=== PATIENT | female | born 1975 | race American Indian/Alaskan Native ===

== ENCOUNTER 2016-11-14 13:57 | Inpatient (IN) | payer OTHER ==
--- NOTE | 2016-11-14 14:13 | Emergency Department Report ---
Chief Complaint: Neuro Symptoms/Deficit Stated Complaint: POSS STROKE/NUMBNESS R ARM/HISTORY Time Seen by Provider: 11/14/16 14:08 - HPI History of Present Illness: PT c/o R arm numbness and weakness since yesterday. PT States she has a hx of CVA with residual R sided weakness but pt feels the weakness is worsening. - ROS Review of Systems: + right sided weakness - miller - cp + arm pain - Exam Vital Signs: Vital Signs 11/14/16 14:04 Temperature 99.1 F Pulse Rate 90 Respiratory 20 Rate Blood Pressure 153/98 O2 Sat by Pulse 100 Oximetry Physical Exam: pt is alert, flat affect PT is guarding RUE MSE screening note: Focused history and physical exam performed. Due to findings the following was ordered: ekg, labs, ct ED Disposition for MSE Condition: Stable
--- NOTE | 2016-11-14 15:05 | Cat Scan Report ---
CT HEAD WITHOUT CONTRAST: HISTORY: Right sided weakness. Serial contiguous axial images were obtained through the cranium. Intravenous contrast material was not administered. The ventricles are normal in size and appearance. There is no mass effect or midline shift. No areas of abnormally increased or decreased attenuation are seen. No mass lesion is seen. The mastoid air cells and visualized portions of the sinuses are normal. IMPRESSION: Cranial CT scan within normal limits. No change since 11/02/14.
--- NOTE | 2016-11-14 15:37 | Emergency Department Report ---
ED Neuro Deficit HPI - General Chief Complaint: Neuro Symptoms/Deficit Stated Complaint: POSS STROKE/NUMBNESS R ARM/HISTORY Time Seen by Provider: 11/14/16 14:08 Source: patient, family, RN notes reviewed Mode of arrival: Ambulatory Limitations: Physical Limitation - History of Present Illness Initial Comments: This is a 41-year-old female. She is previously unknown to me. She is on lifelong Lovenox because of protein C and protein S deficiency. Reports a history of 2 strokes. Presents to the ER with right upper extremity weakness and numbness which has been present since yesterday. It is painless. It is constant. Denies severe headache, chest pain, abdominal pain, shortness of breath. Denies cough. She denies irritative and obstructive. Obstructive urinary symptoms. -: Gradual Location: right arm Presenting Symptoms: Present: Weak/Paralyzed One Side History of same: Yes Place: home Severity: severe Quality: weak, numb, tingling, constant Improves With: none Worsens With: none On Anticoagulants: Yes Context: gradual onset Associated Symptoms: denies other symptoms - Related Data Home Medications: Home Medications Medication Instructions Recorded Confirmed Last Taken Esomeprazole Magnesium [NexIUM] 40 mg PO DAILY 11/02/14 11/14/16 11/12/16 Hydromorphone HCl [Dilaudid] 4 mg PO Q6H PRN 11/02/14 11/14/16 11/12/16 Morphine [Morphine TAB] 30 mg PO Q4H PRN 11/02/14 11/14/16 11/12/16 diphenhydrAMINE [Benadryl CAP] 50 mg PO Q4H PRN 11/02/14 11/14/16 11/12/16 traZODone [Desyrel] 50 mg PO QHS 11/02/14 11/14/16 Unknown Docusate Sodium [Colace CAP] 100 mg PO DAILY 11/14/16 11/14/16 11/12/16 Enoxaparin [Lovenox] 1 each SQ BID 11/14/16 11/14/16 11/13/16 Morphine [Morphine TAB] 15 mg PO Q4H 11/14/16 11/14/16 11/12/16 Previous Rx's Medication Instructions Recorded Last Taken Type Simvastatin [Zocor TAB] 20 mg PO QHS #30 tablet 11/16/16 Unknown Rx Allergies/Adverse Reactions: Allergies Allergy/AdvReac Type Severity Reaction Status Date / Time acetaminophen [From Tylenol] Allergy Unknown Verified 07/07/15 16:25 blue dye Allergy Unknown Verified 07/07/15 16:25 hydrocodone bitartrate Allergy Unknown Verified 07/07/15 16:25 [From Lortab] NSAIDS (Non-Steroidal Allergy Unknown Verified 07/07/15 16:25 Anti-Inflamma oxycodone HCl [From Percocet] Allergy Unknown Verified 07/07/15 16:25 shellfish derived Allergy Unknown Verified 07/07/15 16:25 tramadol Allergy Unknown Verified 07/07/15 16:25 tramadol HCl [From Ultram] Allergy Unknown Verified 07/07/15 16:25 ED Review of Systems ROS: Stated complaint: POSS STROKE/NUMBNESS R ARM/HISTORY Other details as noted in HPI Constitutional: denies: fever Eyes: denies: vision change ENT: denies: epistaxis Respiratory: denies: cough Cardiovascular: denies: chest pain Gastrointestinal: denies: abdominal pain Genitourinary: as per HPI Musculoskeletal: as per HPI Skin: as per HPI Neurological: weakness, numbness, paresthesias Psychiatric: as per HPI ED Past Medical Hx - Past Medical History Previous Medical History?: Yes Hx CVA: Yes (2) Additional medical history: Protein c and s Def. June PE - Surgical History Past Surgical History?: Yes Additional Surgical History: tubal ligation. endometrial ablation - Social History Smoking Status: Never Smoker Substance Use Type: None - Medications Home Medications: Home Medications Medication Instructions Recorded Confirmed Last Taken Type Esomeprazole Magnesium [NexIUM] 40 mg PO DAILY 11/02/14 11/14/16 11/12/16 History Hydromorphone HCl [Dilaudid] 4 mg PO Q6H PRN 11/02/14 11/14/16 11/12/16 History Morphine [Morphine TAB] 30 mg PO Q4H PRN 11/02/14 11/14/16 11/12/16 History diphenhydrAMINE [Benadryl CAP] 50 mg PO Q4H PRN 11/02/14 11/14/16 11/12/16 History traZODone [Desyrel] 50 mg PO QHS 11/02/14 11/14/16 Unknown History Docusate Sodium [Colace CAP] 100 mg PO DAILY 11/14/16 11/14/16 11/12/16 History Enoxaparin [Lovenox] 1 each SQ BID 11/14/16 11/14/16 11/13/16 History Morphine [Morphine TAB] 15 mg PO Q4H 11/14/16 11/14/16 11/12/16 History Simvastatin [Zocor TAB] 20 mg PO QHS #30 tablet 11/16/16 Unknown Rx ED Neuro Physical Exam - General Limitations: No Limitations, Physical Limitation General appearance: alert, in no apparent distress Suspected Stroke: Yes - Head Head exam: Present: atraumatic, normocephalic - Eye Eye exam: Present: normal appearance, EOMI, other (visual acuity intact to finger counting, color perception, reading at a close distance). Absent: nystagmus - ENT ENT exam: Present: normal exam, normal orophraynx, mucous membranes moist, normal external ear exam - Neck Neck exam: Present: normal inspection, full ROM. Absent: tenderness, meningismus - Respiratory Respiratory exam: Present: normal lung sounds bilaterally. Absent: respiratory distress, wheezes, rales, rhonchi, stridor, chest wall tenderness - Cardiovascular Cardiovascular Exam: Present: regular rate, normal rhythm, normal heart sounds. Absent: bradycardia, tachycardia, irregular rhythm, systolic murmur, diastolic murmur, rubs, gallop - GI/Abdominal GI/Abdominal exam: Present: soft, normal bowel sounds. Absent: distended, tenderness, guarding, rebound, rigid, pulsatile mass - Extremities Exam Extremities exam: Present: normal inspection, normal capillary refill. Absent: full ROM, pedal edema, joint swelling - Back Exam Back exam: Present: normal inspection, full ROM. Absent: tenderness, CVA tenderness (R), paraspinal tenderness - Neurological Exam Neurological exam: Present: alert, oriented X3, motor sensory deficit (there is decreased sensation to light touch, pinprick in the right upper extremity. There is right upper extremity weakness.) - NIHSS Assessment Interval: Baseline 1a. Level of Consciousness: alert 1b. LOC Questions: answers correctly 1c. LOC Commands: performs tasks correctly 2. Best Gaze: normal 3. Visual: no visual loss 4. Facial Palsy: normal symmetrical movement 5b. Motor Arm Right: no gravity effort 5a. Motor Arm Left: no drift 6a. Motor Leg Left: no drift 6b. Motor Leg Right: no drift 7. Limb Ataxia: absent 8. Sensory: mild/moderate sensory loss 9. Best Language: no aphasia 10. Dysarthria: normal 11. Extinction/Inattention: no abnormality Total Score: 4 Stroke Severity: Minor Stroke - Psychiatric Psychiatric exam: Present: anxious - Skin Skin exam: Present: warm, dry, intact, normal color. Absent: rash ED Course Vital Signs 11/14/16 11/14/16 11/14/16 14:04 14:31 14:37 Temperature 99.1 F Pulse Rate 90 89 89 Respiratory 20 18 18 Rate Blood Pressure 153/98 Blood Pressure 118/85 [Left] O2 Sat by Pulse 100 100 100 Oximetry 11/14/16 16:11 Temperature Pulse Rate 68 Respiratory 18 Rate Blood Pressure Blood Pressure 120/76 [Left] O2 Sat by Pulse 100 Oximetry - EJ/Peripheral Line Neck L Time Out Performed: Yes Indications: nurses unable to establis Skin Cleansed in Sterile Fashion: Yes Size: 20 Dressing Placed: Tegaderm Patient Tolerated Procedure: well - Lab Data Result diagrams: 11/14/16 14:08 11/14/16 15:30 Lab Results 11/14/16 11/14/16 11/14/16 Range/Units 14:08 15:30 15:30 WBC 8.5 (4.5-11.0) K/mm3 RBC 3.95 (3.65-5.03) M/mm3 Hgb 11.1 (10.1-14.3) gm/dl Hct 33.9 (30.3-42.9) % MCV 86 (79-97) fl MCH 28 (28-32) pg MCHC 33 (30-34) % RDW 15.2 (13.2-15.2) % Plt Count 257 (140-440) K/mm3 Lymph % (Auto) 37.2 H (13.4-35.0) % Brule % (Auto) 6.1 (0.0-7.3) % Eos % (Auto) 1.1 (0.0-4.3) % Baso % (Auto) 0.6 (0.0-1.8) % Lymph # 3.2 (1.2-5.4) K/mm3 Brule # 0.5 (0.0-0.8) K/mm3 Eos # 0.1 (0.0-0.4) K/mm3 Baso # 0.1 (0.0-0.1) K/mm3 Seg Neutrophils % 55.0 (40.0-70.0) % Seg Neutrophils # 4.7 (1.8-7.7) K/mm3 PT 12.8 (12.2-14.9) Sec. INR 0.92 (0.87-1.13) APTT 28.6 (24.2-36.6) Sec. Sodium (137-145) mmol/L Potassium (3.6-5.0) mmol/L Chloride (98-107) mmol/L Carbon Dioxide (22-30) mmol/L Anion Gap mmol/L BUN (7-17) mg/dL Creatinine (0.7-1.2) mg/dL Estimated GFR ml/min BUN/Creatinine Ratio % Glucose (65-100) mg/dL POC Glucose (70-105) Calcium (8.4-10.2) mg/dL Total Bilirubin (0.1-1.2) mg/dL AST (5-40) units/L ALT (7-56) units/L Alkaline Phosphatase (35-129) units/L Total Creatine Kinase 150 H (30-135) units/L CK-MB (CK-2) 1.1 (0.0-4.0) ng/mL CK-MB (CK-2) Rel Index 0.7 (0-4) Troponin T < 0.010 (0.00-0.029) ng/mL Total Protein (6.3-8.2) g/dL Albumin (3.9-5) g/dL Albumin/Globulin Ratio % Urine Color (Yellow) Urine Turbidity (Clear) Urine pH (5.0-7.0) Ur Specific [place] (1.003-1.030) Urine Protein (Negative) mg/dL Urine Glucose (UA) (Negative) mg/dL Urine Ketones (Negative) mg/dL Urine Blood (Negative) Urine Nitrite (Negative) Urine Bilirubin (Negative) Urine Urobilinogen (<2.0) mg/dL Ur Leukocyte Esterase (Negative) Urine WBC (Auto) (0.0-6.0) /HPF Urine RBC (Auto) (0.0-6.0) /HPF U Epithel Cells (Auto) (0-13.0) /HPF Urine Mucus /HPF Urine Opiates Screen Urine Methadone Screen Ur Barbiturates Screen Ur Phencyclidine Scrn Ur Amphetamines Screen U Benzodiazepines Scrn Urine Cocaine Screen U Marijuana (THC) Screen Drugs of Abuse Note 11/14/16 11/14/16 11/14/16 Range/Units 15:30 15:50 15:50 WBC (4.5-11.0) K/mm3 RBC (3.65-5.03) M/mm3 Hgb (10.1-14.3) gm/dl Hct (30.3-42.9) % MCV (79-97) fl MCH (28-32) pg MCHC (30-34) % RDW (13.2-15.2) % Plt Count (140-440) K/mm3 Lymph % (Auto) (13.4-35.0) % Brule % (Auto) (0.0-7.3) % Eos % (Auto) (0.0-4.3) % Baso % (Auto) (0.0-1.8) % Lymph # (1.2-5.4) K/mm3 Brule # (0.0-0.8) K/mm3 Eos # (0.0-0.4) K/mm3 Baso # (0.0-0.1) K/mm3 Seg Neutrophils % (40.0-70.0) % Seg Neutrophils # (1.8-7.7) K/mm3 PT (12.2-14.9) Sec. INR (0.87-1.13) APTT (24.2-36.6) Sec. Sodium 137 (137-145) mmol/L Potassium 4.2 (3.6-5.0) mmol/L Chloride 99.3 (98-107) mmol/L Carbon Dioxide 26 (22-30) mmol/L Anion Gap 16 mmol/L BUN 15 (7-17) mg/dL Creatinine 0.9 (0.7-1.2) mg/dL Estimated GFR > 60 ml/min BUN/Creatinine Ratio 16.66 % Glucose 92 (65-100) mg/dL POC Glucose (70-105) Calcium 9.0 (8.4-10.2) mg/dL Total Bilirubin 0.20 (0.1-1.2) mg/dL AST 21 (5-40) units/L ALT 14 (7-56) units/L Alkaline Phosphatase 84 (35-129) units/L Total Creatine Kinase (30-135) units/L CK-MB (CK-2) (0.0-4.0) ng/mL CK-MB (CK-2) Rel Index (0-4) Troponin T (0.00-0.029) ng/mL Total Protein 7.4 (6.3-8.2) g/dL Albumin 3.7 L (3.9-5) g/dL Albumin/Globulin Ratio 1.0 % Urine Color Straw (Yellow) Urine Turbidity Clear (Clear) Urine pH 8.0 H (5.0-7.0) Ur Specific [place] 1.014 (1.003-1.030) Urine Protein <15 mg/dl (Negative) mg/dL Urine Glucose (UA) Neg (Negative) mg/dL Urine Ketones Neg (Negative) mg/dL Urine Blood Neg (Negative) Urine Nitrite Neg (Negative) Urine Bilirubin Neg (Negative) Urine Urobilinogen < 2.0 (<2.0) mg/dL Ur Leukocyte Esterase Sm (Negative) Urine WBC (Auto) 3.0 (0.0-6.0) /HPF Urine RBC (Auto) 1.0 (0.0-6.0) /HPF U Epithel Cells (Auto) 2.0 (0-13.0) /HPF Urine Mucus Few /HPF Urine Opiates Screen Presumptive negative Urine Methadone Screen Presumptive negative Ur Barbiturates Screen Presumptive negative Ur Phencyclidine Scrn Presumptive negative Ur Amphetamines Screen Presumptive negative U Benzodiazepines Scrn Presumptive negative Urine Cocaine Screen Presumptive negative U Marijuana (THC) Screen Presumptive negative Drugs of Abuse Note Disclamer 11/14/16 Range/Units 16:07 WBC (4.5-11.0) K/mm3 RBC (3.65-5.03) M/mm3 Hgb (10.1-14.3) gm/dl Hct (30.3-42.9) % MCV (79-97) fl MCH (28-32) pg MCHC (30-34) % RDW (13.2-15.2) % Plt Count (140-440) K/mm3 Lymph % (Auto) (13.4-35.0) % Brule % (Auto) (0.0-7.3) % Eos % (Auto) (0.0-4.3) % Baso % (Auto) (0.0-1.8) % Lymph # (1.2-5.4) K/mm3 Brule # (0.0-0.8) K/mm3 Eos # (0.0-0.4) K/mm3 Baso # (0.0-0.1) K/mm3 Seg Neutrophils % (40.0-70.0) % Seg Neutrophils # (1.8-7.7) K/mm3 PT (12.2-14.9) Sec. INR (0.87-1.13) APTT (24.2-36.6) Sec. Sodium (137-145) mmol/L Potassium (3.6-5.0) mmol/L Chloride (98-107) mmol/L Carbon Dioxide (22-30) mmol/L Anion Gap mmol/L BUN (7-17) mg/dL Creatinine (0.7-1.2) mg/dL Estimated GFR ml/min BUN/Creatinine Ratio % Glucose (65-100) mg/dL POC Glucose 102 (70-105) Calcium (8.4-10.2) mg/dL Total Bilirubin (0.1-1.2) mg/dL AST (5-40) units/L ALT (7-56) units/L Alkaline Phosphatase (35-129) units/L Total Creatine Kinase (30-135) units/L CK-MB (CK-2) (0.0-4.0) ng/mL CK-MB (CK-2) Rel Index (0-4) Troponin T (0.00-0.029) ng/mL Total Protein (6.3-8.2) g/dL Albumin (3.9-5) g/dL Albumin/Globulin Ratio % Urine Color (Yellow) Urine Turbidity (Clear) Urine pH (5.0-7.0) Ur Specific [place] (1.003-1.030) Urine Protein (Negative) mg/dL Urine Glucose (UA) (Negative) mg/dL Urine Ketones (Negative) mg/dL Urine Blood (Negative) Urine Nitrite (Negative) Urine Bilirubin (Negative) Urine Urobilinogen (<2.0) mg/dL Ur Leukocyte Esterase (Negative) Urine WBC (Auto) (0.0-6.0) /HPF Urine RBC (Auto) (0.0-6.0) /HPF U Epithel Cells (Auto) (0-13.0) /HPF Urine Mucus /HPF Urine Opiates Screen Urine Methadone Screen Ur Barbiturates Screen Ur Phencyclidine Scrn Ur Amphetamines Screen U Benzodiazepines Scrn Urine Cocaine Screen U Marijuana (THC) Screen Drugs of Abuse Note Vital Signs 11/14/16 11/14/16 11/14/16 14:04 14:31 14:37 Temperature 99.1 F Pulse Rate 90 89 89 Respiratory 20 18 18 Rate Blood Pressure 153/98 Blood Pressure 118/85 [Left] O2 Sat by Pulse 100 100 100 Oximetry 11/14/16 16:11 Temperature Pulse Rate 68 Respiratory 18 Rate Blood Pressure Blood Pressure 120/76 [Left] O2 Sat by Pulse 100 Oximetry Lab Results 11/14/16 11/14/16 Range/Units 14:08 15:30 WBC 8.5 (4.5-11.0) K/mm3 RBC 3.95 (3.65-5.03) M/mm3 Hgb 11.1 (10.1-14.3) gm/dl Hct 33.9 (30.3-42.9) % MCV 86 (79-97) fl MCH 28 (28-32) pg MCHC 33 (30-34) % RDW 15.2 (13.2-15.2) % Plt Count 257 (140-440) K/mm3 Lymph % (Auto) 37.2 H (13.4-35.0) % Brule % (Auto) 6.1 (0.0-7.3) % Eos % (Auto) 1.1 (0.0-4.3) % Baso % (Auto) 0.6 (0.0-1.8) % Lymph # 3.2 (1.2-5.4) K/mm3 Brule # 0.5 (0.0-0.8) K/mm3 Eos # 0.1 (0.0-0.4) K/mm3 Baso # 0.1 (0.0-0.1) K/mm3 Seg Neutrophils % 55.0 (40.0-70.0) % Seg Neutrophils # 4.7 (1.8-7.7) K/mm3 PT 12.8 (12.2-14.9) Sec. INR 0.92 (0.87-1.13) APTT 28.6 (24.2-36.6) Sec. - EKG Data -: EKG Interpreted by Me EKG shows normal: sinus rhythm 11/14/16 16:17 Normal sinus, 76 beats minute, normal intervals, normal axis, motion artifact, not morphologically consistent with stemi 11/14/16 16:18 - Radiology Data Radiology results: report reviewed, image reviewed Noncontrast CT scan of the brain is negative. X-ray the chest is negative - Medical Decision Making Differential diagnosis: Stroke, Ferny's paralysis, conversion disorder, urinary tract infection, pneumonia Assessment and plan: 41-year-old female with multiple strokes, unlikely systemic anticoagulation, with right upper extremity weakness and numbness which started yesterday. She is not a TPA candidate as she presented more than 4.5 hours after presentation/onset of symptoms. She presented more than 12 hours after onset of symptoms, her last well time was yesterday. Therefore, she is very unlikely to benefit from endovascular intervention or emergent acquisition of a CT angiogram. She reports anaphylaxis to NSAIDs. She will therefore be treated with Plavix and Lovenox, she reports she is taking Lovenox on a daily basis, she took her last dose yesterday. In addition, as symptoms have been present since yesterday, I see no reason to emergently consult neurology from the emergency department. I will defer to the inpatient team to consult them for further evaluation and medical recommendations. case presented to Dr Law, who accepts the patient to his service - Core Measures Measure Exclusions: not indicated - Thrombolytic Inclusion/Exclusion Thrombolytic Exclusion Criteria: Symptom Onset > 3 Hours Critical care attestation.: If time is entered above; I have spent that time in minutes in the direct care of this critically ill patient, excluding procedure time. ED Disposition Clinical Impression: Right arm weakness CVA (cerebral vascular accident) Qualifiers: CVA mechanism: unspecified Qualified Code(s): I63.9 - Cerebral infarction, unspecified Disposition: OP ADMIT IP TO THIS HOSP Is pt being admited?: Yes Condition: Stable
--- NOTE | 2016-11-14 15:41 | Admit Criteria Form ---
Admission Criteria Documentation: TELEMETRY CARE Telemetry Admission Guidelines (Place 'X' for any and all applicable criteria): Admission to telemetry [A] may be indicated for ANY ONE of the following(1)(2)(3 )(4)(5): [ ]I. Cardiac disease, including ANY ONE of the following (9)(10)(11)(12)(13 ): [ ]a) Postacute [place] [ ]b) Low-risk patients with ST-segment elevation [place] who have undergone successful percutaneous coronary intervention [ ]c) Unstable angina [ ]d) Suspected [place] (until it is ruled out) [ ]e) Post cardiac surgery (first 48 to 72 hours unless complications occur) [ ]f) Acute arrhythmias (including significant tachycardia or bradycardia) [B] [ ]g) Firing of an implantable cardioverter defibrillator [C] [ ]h) Suspected pacemaker or implantable cardioverter defibrillator malfunction (10) [ ]i) New administration or adjustment of an antiarrhythmic drug [D ] [ ]j) Child admitted for acute congestive heart failure [ ]j) Long QT syndrome [ ]k) Advanced heart block (eg, second-degree Mobitz type II, third- degree heart block) [ ]l) Acute myocarditis or pericarditis [ ]m) Short-term (ambulatory or inpatient) monitoring after a cardiac procedure as indicated by ANY ONE of the following [E]: [ ]i) Electrophysiologic studies [ ]ii) Percutaneous coronary intervention with stent placement [ ]iii) Pacemaker placement with cardiac conduction defect [ ]iv) Implantable cardiac defibrillator placement [ ]II. Drug overdose or poisoning with substance that causes arrhythmias or QT prolongation (eg, phenothiazines, sympathomimetic agents, cyclic antidepressants, digitalis, antiarrhythmic drugs)(15) [ ]III. Short-term (ambulatory or inpatient) monitoring after therapeutic or diagnostic procedure requiring conscious sedation or anesthesia (eg, endoscopy, elective cardioversion) [ X]IV. Acute cerebrovascular even[F](18) [ ]V. Massive blood transfusion (eg, at least 10 units of packed red blood cells in 24 hours) [ ]. Variceal bleeding after endoscopy, sclerotherapy, or IV vasopressin [ ]VII. Uncorrected electrolyte abnormalities associated with an increased risk of dangerous arrhythmia [G]; examples include [ ]a) Hyperkalemia with attributable ECG changes [ ]b) Potassium greater than 6.5 mmol/L (mEq/L) in a patient without history of chronic renal disease [ ]c) Prolonged QT attributed to hypokalemia, hypomagnesemia, or hypocalcemia [ ]VIII.Unexplained syncope or other neurologic event suspected of being due to arrhythmia due to a finding that increases risk; examples include(19)(20)(21): [ ]a) High-risk ECG findings (eg, bifascicular block, bradycardia, abnormal QT interval, ventricular pre- excitation) [ ]b) History of previous syncope due to arrhythmia [ ]c) Abnormal ventricular function (eg, reduced ejection fraction ) [ ]d) Exertional or supine syncope [ ]e) Concerning syncope characteristics (eg, sudden loss of consciousness without prodrome) [ ]f) Family history of sudden [ ]g) Use of arrhythmogenic medication [ ]h) Suspected cardiac ischemia [ ]i) Known channelopathy (eg, long QT syndrome, Brugada syndrome, or catecholaminergic paroxysmal ventricular tachycardia) [ ]j) Known structural heart disease (eg, hypertrophic cardiomyopathy , severe valvular disease) [ ]k) Palpitations preceding syncope The original [employer] content created by [employer] has been revised. The portions of the content which have been revised are identified through the use of italic text or in bold, and [employer] has neither reviewed nor approved the modified material. All other unmodified content is copyright [employer]. Please see references footnoted in the original [employer] edition 2016 Admission Criteria Met: Yes
[2016-11-14 16:08] LABS: Basophils % (Auto) 0.6 % (0.0-1.8); Eosinophils % (Auto) 1.1 % (0.0-4.3); Hematocrit 33.9 % (30.3-42.9); Hemoglobin 11.1 gm/dl (10.1-14.3); Mean Corpuscular HGB Conc 33 % (30-34); Mean Corpuscular Hemoglobin 28 pg (28-32); Mean Corpuscular Volume 86 fl (79-97); Platelet Count 257 K/mm3 (140-440); Red Blood Count 3.95 M/mm3 (3.65-5.03); Red Cell Distribution Width 15.2 % (13.2-15.2); White Blood Count 8.5 K/mm3 (4.5-11.0)
[2016-11-14 16:12] LABS: INR 0.92 (0.87-1.13); Partial Thromboplastin Time 28.6 Sec. (24.2-36.6)
[2016-11-14] MEDS ORDERED: LOVENOX SUB-Q ONE (16:14)
[2016-11-14] MEDS ORDERED: PLAVIX PO ONE (16:14)
[2016-11-14 16:21] LABS: Alanine Aminotransferase 14 units/L (7-56); Albumin 3.7 g/dL (3.9-5); Alkaline Phosphatase 84 units/L (35-129); Anion Gap 16 mmol/L; BUN/Creatinine Ratio 16.66; Blood Urea Nitrogen 15 mg/dL (7-17); Carbon Dioxide 26 mmol/L (22-30); Chloride 99.3 mmol/L (98-107); Glucose 92 mg/dL (65-100); Potassium 4.2 mmol/L (3.6-5.0); Sodium 137 mmol/L (137-145); Total Protein 7.4 g/dL (6.3-8.2)
[2016-11-14 16:23] LABS: Creatine Kinase MB 1.1 ng/mL (0.0-4.0)
[2016-11-14 16:24] LABS: Creatine Kinase 150 units/L (30-135)
[2016-11-14 16:26] LABS: Bilirubin,Urine NEG (Negative); Blood,Urine NEG (Negative); Ketones,Urine NEG (Negative); Leukocyte Esterase,Urine SM (Negative); Mucus,Urine FEW /HPF; Nitrite,Urine NEG (Negative); Protein,Urine <15 mg/dL mg/dL (Negative); Urobilinogen,Urine < 2.0 mg/dL (<2.0)
[2016-11-14] MEDS ORDERED: REGLAN PO PRN (16:38)
[2016-11-14] MEDS ORDERED: MILK OF MAGNESIA PO PRN (16:38)
[2016-11-14] MEDS ORDERED: MORPHINE IV ONE (16:38)
[2016-11-14] MEDS ORDERED: TYLENOL PO PRN (16:38)
[2016-11-14] MEDS ORDERED: ZOFRAN IV PRN (16:38)
[2016-11-14] MEDS ORDERED: PHENERGAN PR PRN (16:38)
[2016-11-14] MEDS ORDERED: APRESOLINE IV PRN (16:38)
[2016-11-14] MEDS ORDERED: DULCOLAX PR PRN (16:38)
[2016-11-14] MEDS ORDERED: SODIUM CHLORIDE FLUSH SYRINGE 10 ML IV PRN (16:38)
[2016-11-14] MEDS ORDERED: BENADRYL IV ONE (16:39)
--- NOTE | 2016-11-14 16:56 | History and Physical Report ---
History of Present Illness Date of examination: 11/14/16 Chief complaint: Right upper extremity numbness and weakness History of present illness: 41-year-old -[place] female with past medical history significant for multiple stroke, DVT, PE, protein C/S deficiency presented to the emergency department complaining of left-sided upper extremity weakness and numbness that started yesterday around 9 AM. Numbness and weakness is getting progressively worse then she presented to the emergency department this morning. Patient has multiple history of stroke and she is on therapeutic dose of Lovenox and has been followed by [facility]. Patient also complained pain and swelling of the right upper extremity. Patient denied headache, fever, chills. Patient denied chest pain, or bleeding. REVIEW OF SYSTEMS: GENERAL: no weight change, no fatigue, no fever HEAD: no head ache EYES: no blurry vision, no acute visual loss EARS: no hearing loss, no discharge, no earache NOSE: no stuffiness, no sneezing, no discharge MOUTH, THROAT AND NECK: no bleeding gums, no sore throat, no swollen neck CARDIAC: no palpitations, no dyspnea on exertion, no orthopnea, no PND, no edema , no chest pain RESPIRATORY: no shortness of breath, no wheeze, no cough, no sputum, no hemoptysis, no asthma GI: no decreased appetite, no nausea, no vomiting, no dysphagia, no diarrhea, no constipation, no abdominal pain URINARY: no change in frequency, no urgency, no polyuria, no hematuria, no incontinence MUSCULOSKELETAL: Right upper extremity weakness, numbness, and pain NEUROLOGIC: no tremors HEMATOLOGIC: no anemia, no easy bruising SKIN: no rashes ENDOCRINE: no heat/cold intolerance, no polyuria, no polydipsia, no thyroid problems, no diabetes PSYCHIATRIC: no anxiety, no depression, no suicidal ideations Past History Past Medical History: DVT, pulmonary embolism, stroke, other (protein C/S deficiency) Past Surgical History: hysterectomy, hernia repair, Other (Serafin filter) Social history: full code. denies: smoking, alcohol abuse, prescription drug abuse, IV drug use Family history: other (Multiple family member has SLE) Medications and Allergies Allergies Allergy/AdvReac Type Severity Reaction Status Date / Time acetaminophen [From Tylenol] Allergy Unknown Verified 07/07/15 16:25 blue dye Allergy Unknown Verified 07/07/15 16:25 hydrocodone bitartrate Allergy Unknown Verified 07/07/15 16:25 [From Lortab] NSAIDS (Non-Steroidal Allergy Unknown Verified 07/07/15 16:25 Anti-Inflamma oxycodone HCl [From Percocet] Allergy Unknown Verified 07/07/15 16:25 shellfish derived Allergy Unknown Verified 07/07/15 16:25 tramadol Allergy Unknown Verified 07/07/15 16:25 tramadol HCl [From Ultram] Allergy Unknown Verified 07/07/15 16:25 Home Medications Medication Instructions Recorded Confirmed Last Taken Type Esomeprazole Magnesium [NexIUM] 40 mg PO DAILY 11/02/14 11/14/16 11/12/16 History Hydromorphone HCl [Dilaudid] 4 mg PO Q6H PRN 11/02/14 11/14/16 11/12/16 History Morphine [Morphine TAB] 30 mg PO Q4H PRN 11/02/14 11/14/16 11/12/16 History diphenhydrAMINE [Benadryl] 50 mg PO Q4H PRN 11/02/14 11/14/16 11/12/16 History traZODone [Desyrel] 50 mg PO QHS 11/02/14 11/14/16 Unknown History Docusate Sodium [Colace] 100 mg PO DAILY 11/14/16 11/14/16 11/12/16 History Enoxaparin [Lovenox] 1 each SQ BID 11/14/16 11/14/16 11/13/16 History Morphine [Morphine TAB] 15 mg PO Q4H 11/14/16 11/14/16 11/12/16 History Active Meds: Active Medications Acetaminophen (Tylenol) 650 mg PO Q4H PRN PRN Reason: Pain, Mild (1-3) Aspirin (Aspirin) 325 mg PO QDAY ASHISH Bisacodyl (Dulcolax) 10 mg ID QDAY PRN PRN Reason: Constipation Diphenhydramine HCl (Benadryl) 25 mg IV Q4H PRN PRN Reason: Itching Docusate Sodium (Colace) 100 mg PO BID ASHISH Enoxaparin Sodium (Lovenox) 100 mg 1 mg/kg (100 mg) SUB-Q Q12HR ASHISH Hydralazine HCl (Apresoline) 5 mg IV Q6H PRN PRN Reason: Keep SBP between 160-185 mm Hg Magnesium Hydroxide (Milk Of Magnesia) 30 ml PO Q4H PRN PRN Reason: Constipation Metoclopramide HCl (Reglan) 10 mg PO Q6H PRN PRN Reason: Nausea And Vomiting Morphine Sulfate (Morphine) 2 mg IV Q4H PRN PRN Reason: Pain, Moderate (4-6) Ondansetron HCl (Zofran) 4 mg IV Q8H PRN PRN Reason: N/V unrelieved by Reglan Promethazine HCl (Phenergan) 25 mg ID Q6H PRN PRN Reason: Nausea And Vomiting Simvastatin (Zocor) 20 mg PO QHS ASHISH Sodium Chloride (Sodium Chloride Flush Syringe 10 Ml) 10 ml INJ PRN PRN PRN Reason: LINE FLUSH Exam - Physical Exam Narrative exam: Not in cardiopulmonary distress. The patient appeared well nourished and normally developed. Vital signs as documented. Head exam is unremarkable. No scleral icterus . Neck is without jugular venous distension, thyromegaly, or carotid bruits. Lungs are clear to auscultation. Cardiac exam reveals regular rate and Rhythm. First and second heart sounds normal. No murmurs, rubs or gallops. Abdominal exam reveals normal bowel sounds, no masses, no organomegaly and no aortic enlargement. Extremities tenderness of the right upper extremity. HOISTMAN: Right upper extremity weakness, power is 3 out of 5. - Constitutional Vitals: Temp Pulse Resp BP Pulse Ox 99.1 F 68 18 120/76 100 11/14/16 14:04 11/14/16 16:11 11/14/16 16:11 11/14/16 16:11 11/14/16 16:11 Results - Labs CBC & Chem 7: 11/14/16 14:08 11/14/16 15:30 Labs: Laboratory Last Values WBC 8.5 K/mm3 (4.5-11.0) 11/14/16 14:08 RBC 3.95 M/mm3 (3.65-5.03) 11/14/16 14:08 Hgb 11.1 gm/dl (10.1-14.3) 11/14/16 14:08 Hct 33.9 % (30.3-42.9) 11/14/16 14:08 MCV 86 fl (79-97) 11/14/16 14:08 MCH 28 pg (28-32) 11/14/16 14:08 MCHC 33 % (30-34) 11/14/16 14:08 RDW 15.2 % (13.2-15.2) 11/14/16 14:08 Plt Count 257 K/mm3 (140-440) 11/14/16 14:08 Lymph % (Auto) 37.2 % (13.4-35.0) H 11/14/16 14:08 [place] % (Auto) 6.1 % (0.0-7.3) 11/14/16 14:08 Eos % (Auto) 1.1 % (0.0-4.3) 11/14/16 14:08 Baso % (Auto) 0.6 % (0.0-1.8) 11/14/16 14:08 Lymph # 3.2 K/mm3 (1.2-5.4) 11/14/16 14:08 [place] # 0.5 K/mm3 (0.0-0.8) 11/14/16 14:08 Eos # 0.1 K/mm3 (0.0-0.4) 11/14/16 14:08 Baso # 0.1 K/mm3 (0.0-0.1) 11/14/16 14:08 Seg Neutrophils % 55.0 % (40.0-70.0) 11/14/16 14:08 Seg Neutrophils # 4.7 K/mm3 (1.8-7.7) 11/14/16 14:08 PT 12.8 Sec. (12.2-14.9) 11/14/16 15:30 INR 0.92 (0.87-1.13) 11/14/16 15:30 APTT 28.6 Sec. (24.2-36.6) 11/14/16 15:30 Sodium 137 mmol/L (137-145) 11/14/16 15:30 Potassium 4.2 mmol/L (3.6-5.0) 11/14/16 15:30 Chloride 99.3 mmol/L (98-107) 11/14/16 15:30 Carbon Dioxide 26 mmol/L (22-30) 11/14/16 15:30 Anion Gap 16 mmol/L 11/14/16 15:30 BUN 15 mg/dL (7-17) 11/14/16 15:30 Creatinine 0.9 mg/dL (0.7-1.2) 11/14/16 15:30 Estimated GFR > 60 ml/min 11/14/16 15:30 BUN/Creatinine Ratio 16.66 % 11/14/16 15:30 Glucose 92 mg/dL (65-100) 11/14/16 15:30 Calcium 9.0 mg/dL (8.4-10.2) 11/14/16 15:30 Total Bilirubin 0.20 mg/dL (0.1-1.2) 11/14/16 15:30 AST 21 units/L (5-40) 11/14/16 15:30 ALT 14 units/L (7-56) 11/14/16 15:30 Alkaline Phosphatase 84 units/L (35-129) 11/14/16 15:30 Total Creatine Kinase 150 units/L (30-135) H 11/14/16 15:30 CK-MB (CK-2) 1.1 ng/mL (0.0-4.0) 11/14/16 15:30 CK-MB (CK-2) Rel Index 0.7 (0-4) 11/14/16 15:30 Troponin T < 0.010 ng/mL (0.00-0.029) 11/14/16 15:30 Total Protein 7.4 g/dL (6.3-8.2) 11/14/16 15:30 Albumin 3.7 g/dL (3.9-5) L 11/14/16 15:30 Albumin/Globulin Ratio 1.0 % 11/14/16 15:30 Urine Color Straw (Yellow) 11/14/16 15:50 Urine Turbidity Clear (Clear) 11/14/16 15:50 Urine pH 8.0 (5.0-7.0) H 11/14/16 15:50 Ur Specific [place] 1.014 (1.003-1.030) 11/14/16 15:50 Urine Protein <15 mg/dl mg/dL (Negative) 11/14/16 15:50 Urine Glucose (UA) Neg mg/dL (Negative) 11/14/16 15:50 Urine Ketones Neg mg/dL (Negative) 11/14/16 15:50 Urine Blood Neg (Negative) 11/14/16 15:50 Urine Nitrite Neg (Negative) 11/14/16 15:50 Urine Bilirubin Neg (Negative) 11/14/16 15:50 Urine Urobilinogen < 2.0 mg/dL (<2.0) 11/14/16 15:50 Ur Leukocyte Esterase Sm (Negative) 11/14/16 15:50 Urine WBC (Auto) 3.0 /HPF (0.0-6.0) 11/14/16 15:50 Urine RBC (Auto) 1.0 /HPF (0.0-6.0) 11/14/16 15:50 U Epithel Cells (Auto) 2.0 /HPF (0-13.0) 11/14/16 15:50 Urine Mucus Few /HPF 11/14/16 15:50 - Imaging and Cardiology CT Scan - head: image reviewed (no acute intracranial abnormality) Assessment and Plan Assessment and plan: Acute CVA -Patient came to the hospital after a window period for TPA passed -Patient has a recurrent stroke/DVT and PE -Patient is on therapeutic Lovenox -MRI/MRA, carotid Doppler and echo ordered -Neurology consult placed -Patient is on aspirin and statin -Patient control Protein C/S deficiency with recurrent clot -Continue the Lovenox -Hematology/oncology consult placed DVT prophylaxis -Patient is on therapeutic Lovenox Disposition -To telemetry floor. Advance Directives: Yes VTE prophylaxis?: Chemical Plan of care discussed with patient/family: Yes
[2016-11-14] MEDS ORDERED: HYDROMORPHONE HCL 4 MG PO PRN (17:53)
[2016-11-14] MEDS ORDERED: DILAUDID PO PRN (18:16)
--- NOTE | 2016-11-14 21:10 | Consultation ---
History of Present Illness - Reason for Consult Consult date: 11/14/16 hypercoagulable. Requesting physician: YADIRA LOPEZ - History of Present Illness Thank you for this consult, patient seen, record reviewed. Kindly asked to see this patient, with hx of hypercoagulable, and presented with stroke sxs. Had been on LMWH, and seen at [facility].She will need records of tx from [facility]. will need anticoagulation, if no bleeding. Past History Past Medical History: DVT, pulmonary embolism, stroke, other (protein C/S deficiency) Past Surgical History: hysterectomy, hernia repair, Other ([place] filter) Social history: full code. denies: smoking, alcohol abuse, prescription drug abuse, IV drug use Family history: other (Multiple family member has SLE) Medications and Allergies Allergies Allergy/AdvReac Type Severity Reaction Status Date / Time acetaminophen [From Tylenol] Allergy Unknown Verified 07/07/15 16:25 blue dye Allergy Unknown Verified 07/07/15 16:25 hydrocodone bitartrate Allergy Unknown Verified 07/07/15 16:25 [From Lortab] NSAIDS (Non-Steroidal Allergy Unknown Verified 07/07/15 16:25 Anti-Inflamma oxycodone HCl [From Percocet] Allergy Unknown Verified 07/07/15 16:25 shellfish derived Allergy Unknown Verified 07/07/15 16:25 tramadol Allergy Unknown Verified 07/07/15 16:25 tramadol HCl [From Ultram] Allergy Unknown Verified 07/07/15 16:25 Home Medications Medication Instructions Recorded Confirmed Last Taken Type Esomeprazole Magnesium [NexIUM] 40 mg PO DAILY 11/02/14 11/14/16 11/12/16 History Hydromorphone HCl [Dilaudid] 4 mg PO Q6H PRN 11/02/14 11/14/16 11/12/16 History Morphine [Morphine TAB] 30 mg PO Q4H PRN 11/02/14 11/14/16 11/12/16 History diphenhydrAMINE [Benadryl] 50 mg PO Q4H PRN 11/02/14 11/14/16 11/12/16 History traZODone [Desyrel] 50 mg PO QHS 11/02/14 11/14/16 Unknown History Docusate Sodium [Colace] 100 mg PO DAILY 11/14/16 11/14/16 11/12/16 History Enoxaparin [Lovenox] 1 each SQ BID 11/14/16 11/14/16 11/13/16 History Morphine [Morphine TAB] 15 mg PO Q4H 11/14/16 11/14/16 11/12/16 History Active Meds: Active Medications Bisacodyl (Dulcolax) 10 mg [place] QDAY PRN PRN Reason: Constipation Diphenhydramine HCl (Benadryl) 25 mg IV Q4H PRN PRN Reason: Itching Docusate Sodium (Colace) 100 mg PO BID ASHISH Enoxaparin Sodium (Lovenox) 100 mg 1 mg/kg (100 mg) SUB-Q Q12HR ASHISH Hydralazine HCl (Apresoline) 5 mg IV Q6H PRN PRN Reason: Keep SBP between 160-185 mm Hg Hydromorphone HCl (Dilaudid) 4 mg PO Q6H PRN PRN Reason: Pain , Severe (7-10) Magnesium Hydroxide (Milk Of Magnesia) 30 ml PO Q4H PRN PRN Reason: Constipation Metoclopramide HCl (Reglan) 10 mg PO Q6H PRN PRN Reason: Nausea And Vomiting Morphine Sulfate (Morphine) 2 mg IV Q4H PRN PRN Reason: Pain, Moderate (4-6) Ondansetron HCl (Zofran) 4 mg IV Q8H PRN PRN Reason: N/V unrelieved by Reglan Pantoprazole Sodium (Protonix) 40 mg PO DAILY ASHISH Promethazine HCl (Phenergan) 25 mg [place] Q6H PRN PRN Reason: Nausea And Vomiting Simvastatin (Zocor) 20 mg PO QHS [facility] Sodium Chloride (Sodium Chloride Flush Syringe 10 Ml) 10 ml IV PRN PRN PRN Reason: LINE FLUSH Trazodone HCl (Desyrel) 50 mg PO QHS [facility] Review of Systems Constitutional: fatigue Breasts: deferred Exam - Constitutional Vitals: Temp Pulse Resp BP Pulse Ox 98.7 F 87 18 131/80 100 11/14/16 19:43 11/14/16 19:43 11/14/16 19:43 11/14/16 19:43 11/14/16 19:43 General appearance: Present: mild distress, well-nourished - EENT Eyes: Present: PERRL ENT: hearing intact, clear oral mucosa - Neck Neck: Present: supple, normal ROM - Respiratory Respiratory effort: normal Respiratory: bilateral: CTA - Cardiovascular Heart Sounds: Present: S1 & S2. Absent: rub, click - Extremities Extremities: pulses symmetrical, No edema Peripheral Pulses: within normal limits - Abdominal General gastrointestinal: Present: soft, non-tender, non-distended, normal bowel sounds Female genitourinary: Present: deferred - Rectal Rectal Exam: deferred - Integumentary Integumentary: Present: clear, warm, dry - Neurologic Neurologic: moves all extremities Results - Labs CBC & Chem 7: 11/14/16 14:08 11/14/16 15:30 Assessment and Plan - Patient Problems (1) CVA (cerebral vascular accident) Current Visit: Yes Status: Acute Qualifiers: CVA mechanism: unspecified Precerebral and cerebral artery: P Laterality of affected vessel: L Qualified Code(s): I63.9 - Cerebral infarction, unspecified Plan to address problem: Neurology eval. (2) Hypercoagulable state Current Visit: Yes Status: Acute Plan to address problem: Will do w/up. Will also need record from [facility]., Anti coagulation, if no bleeding.
[2016-11-14] MEDS: COLACE PO SCH (22:06)
[2016-11-14] MEDS: ZOCOR PO SCH (22:06)
[2016-11-14] MEDS: DESYREL PO SCH (22:06)
[2016-11-14] MEDS: MORPHINE IV PRN (22:06)
[2016-11-14] MEDS: BENADRYL IV PRN (22:06)
[2016-11-14] MEDS: LOVENOX SUB-Q SCH (22:07)
[2016-11-14 22:28] LABS: Urine Drugs of Abuse Note Disclamer
[2016-11-15] MEDS: BENADRYL IV PRN ×3 (04:17→22:23)
[2016-11-15] MEDS: MORPHINE IV PRN ×4 (04:17→22:23)
--- NOTE | 2016-11-15 07:33 | XRay Report ---
AP CHEST: HISTORY: CVA AP view of the chest demonstrates a normal mediastinal and cardiac contour with clear lungs and normal bony and soft tissue structures. Right axillary surgical clips are unchanged since 07/07/15. IMPRESSION: Unremarkable AP chest.
--- NOTE | 2016-11-15 08:03 | Vascular Lab Report ---
RIGHT UPPER EXTREMITY VENOUS DUPLEX: REASON FOR EXAM: Pain and swelling of the right upper extremity COMMENTS ON THE RIGHT: All deep arm veins visualized are freely compressible without evidence of internal echogenicity. The subclavian and internal jugular veins are free of thrombus. Flow is spontaneous and phasic throughout. Short segment superficial thrombophlebitis noted in the cephalic vein just proximal to antecubital fossa COMMENTS ON THE LEFT: The subclavian and internal jugular veins are free of thrombus. IMPRESSION: No evidence of acute or chronic deep venous thrombosis in the right upper extremity. Superficial thrombophlebitis in the right upper extremity
[2016-11-15] MEDS ORDERED: ASPIRIN PO SCH (10:00)
[2016-11-15] MEDS ORDERED: NON-FORMULARY (Esomeprazole Magnesium [Nexium] 40 MG) PO SCH (10:00)
--- NOTE | 2016-11-15 11:18 | Magnetic Resonance Report ---
MRA HEAD WITHOUT CONTRAST HISTORY: Stroke. [id number] imaging with MIP reformations of the [place] of [place] is submitted. The arteries appear widely patent and free of hemodynamically significant stenosis or aneurysm dilatation. Both vertebral arteries are identified appearing patent as well. IMPRESSION: Unremarkable MRA head.
--- NOTE | 2016-11-15 11:18 | Magnetic Resonance Report ---
MRI OF THE BRAIN WITHOUT CONTRAST: HISTORY: Stroke PROCEDURE: Multiplanar, multisequence MR imaging of the brain without IV contrast was performed. FINDINGS: Compared to the CT dated 11/15/15. The brain parenchyma signal intensity and its cm white interface are within normal limits on all sequences. No evidence for acute ischemia, hemorrhage or mass. No chronic infarct or extra-axial fluid collection. The midline structures are central. The basal cisterns are patent. Normal ventricular size. The orbital cavities and sella turcica demonstrate no abnormality. The visualized paranasal sinuses and mastoid air cells are well aerated. IMPRESSION: Unremarkable non-enhanced MRI of the brain.
[2016-11-15] MEDS: COLACE PO SCH ×2 (12:15→21:37)
[2016-11-15] MEDS: LOVENOX SUB-Q SCH ×2 (12:15→21:37)
[2016-11-15] MEDS: PROTONIX PO SCH (12:15)
--- NOTE | 2016-11-15 13:07 | Consultation ---
History of Present Illness Consult date: 11/15/16 Requesting physician: YADIRA LOPEZ Reason for Consult: stroke Chief complaint: R arm weakness/numbness/pain/tingling History of present illness: 41 YO F Hx prior multiple strokes reportedly d/t protein C/S deficiency on Lovenox therapeutic and complaint residual R arm numbness p/w acute R arm numbness/tignling/pain/weakness on 11/12 PM. Numbness and weakness is getting progressively worse. Sx are constant. There are no clear aggravating, relieving or temporal factors. Severity was enough to cause inability to effectively use the R arm. She denies R face/R LE sx or slurred speech. Past History Past Medical History: DVT, pulmonary embolism, stroke, other (protein C/S deficiency) Past Surgical History: hysterectomy, hernia repair, Other (Serafin filter) Social history: full code. denies: smoking, alcohol abuse, prescription drug abuse, IV drug use Family history: other (Multiple family member has SLE) Medications and Allergies Allergies Allergy/AdvReac Type Severity Reaction Status Date / Time acetaminophen [From Tylenol] Allergy Unknown Verified 07/07/15 16:25 blue dye Allergy Unknown Verified 07/07/15 16:25 hydrocodone bitartrate Allergy Unknown Verified 07/07/15 16:25 [From Lortab] NSAIDS (Non-Steroidal Allergy Unknown Verified 07/07/15 16:25 Anti-Inflamma oxycodone HCl [From Percocet] Allergy Unknown Verified 07/07/15 16:25 shellfish derived Allergy Unknown Verified 07/07/15 16:25 tramadol Allergy Unknown Verified 07/07/15 16:25 tramadol HCl [From Ultram] Allergy Unknown Verified 07/07/15 16:25 Home Medications Medication Instructions Recorded Confirmed Last Taken Type Esomeprazole Magnesium [NexIUM] 40 mg PO DAILY 11/02/14 11/14/16 11/12/16 History Hydromorphone HCl [Dilaudid] 4 mg PO Q6H PRN 11/02/14 11/14/16 11/12/16 History Morphine [Morphine TAB] 30 mg PO Q4H PRN 11/02/14 11/14/16 11/12/16 History diphenhydrAMINE [Benadryl] 50 mg PO Q4H PRN 11/02/14 11/14/1611/12/17 History traZODone [Desyrel] 50 mg PO QHS 11/02/14 11/14/16 Unknown History Docusate Sodium [Colace] 100 mg PO DAILY 11/14/16 11/14/16 11/12/16 History Enoxaparin [Lovenox] 1 each SQ BID 11/14/16 11/14/16 11/13/16 History Morphine [Morphine TAB] 15 mg PO Q4H 11/14/16 11/14/16 11/12/16 History Active Meds: Active Medications Bisacodyl (Dulcolax) 10 mg [place] QDAY PRN PRN Reason: Constipation Diphenhydramine HCl (Benadryl) 25 mg IV Q4H PRN PRN Reason: Itching Last Admin: 11/15/16 04:17 Dose: 25 mg Docusate Sodium (Colace) 100 mg PO BID [facility] Last Admin: 11/15/16 12:15 Dose: 100 mg Enoxaparin Sodium (Lovenox) 100 mg 1 mg/kg (100 mg) SUB-Q Q12HR [facility] Last Admin: 11/15/16 12:15 Dose: 100 mg Hydralazine HCl (Apresoline) 5 mg IV Q6H PRN PRN Reason: Keep SBP between 160-185 mm Hg Hydromorphone HCl (Dilaudid) 4 mg PO Q6H PRN PRN Reason: Pain , Severe (7-10) Magnesium Hydroxide (Milk Of Magnesia) 30 ml PO Q4H PRN PRN Reason: Constipation Metoclopramide HCl (Reglan) 10 mg PO Q6H PRN PRN Reason: Nausea And Vomiting Morphine Sulfate (Morphine) 2 mg IV Q4H PRN PRN Reason: Pain, Moderate (4-6) Last Admin: 11/15/16 08:39 Dose: 2 mg Ondansetron HCl (Zofran) 4 mg IV Q8H PRN PRN Reason: N/V unrelieved by Reglan Pantoprazole Sodium (Protonix) 40 mg PO DAILY [facility] Last Admin: 11/15/16 12:15 Dose: 40 mg Promethazine HCl (Phenergan) 25 mg [place] Q6H PRN PRN Reason: Nausea And Vomiting Simvastatin (Zocor) 20 mg PO QHS [facility] Last Admin: 11/14/16 22:06 Dose: 20 mg Sodium Chloride (Sodium Chloride Flush Syringe 10 Ml) 10 ml IV PRN PRN PRN Reason: LINE FLUSH Trazodone HCl (Desyrel) 50 mg PO QHS [facility] Last Admin: 11/14/16 22:06 Dose: 50 mg Review of Systems All systems: negative Musculoskeletal: neck pain, shooting arm pain Neurological: weakness, parathesias, numbness, tingling, motor disturbance, sensory deficit, no seizures, no headaches, no convulsions, no aphasia, no change in speech, no change in mentation, no gait dysfunction, no double vision , no loss of vision Physical Examination - Vital Signs Vital Signs: Vital Signs Temp Pulse Resp BP Pulse Ox 99.1 F 90 20 153/98 100 11/14/16 14:04 11/14/16 14:04 11/14/16 14:04 11/14/16 14:04 11/14/16 14:04 - Constitutional General appearance: comfortable - EENT EENT: Present: ATNC, PERRL, mucous membranes moist, hearing intact, vision intact - Respiratory Respiratory: Present: chest non-tender, normal breath sounds, no respiratory distress - Cardiovascular Cardiovascular: Present: regular rate Extremities: Present: no peripheral edema bilatateraly, no clubbing, cyanosis, no inflammation, no ischemia or petechiae - Gastrointestinal Gastrointestinal: Present: normoactive bowel sounds, soft, non-distended - Integumentary Integumentary: Present: normal - Neurologic Cranial nerve examination: PERRL, EOMI, VFF, ptosis (mild on L), V1/V2/V3 grossly intact, face symmetric, tongue midline, intact, Intact Vestibulo-ocular r, intact corneal reflex, normal palatal elevation Speech examination: intact Sensorimotor examination: other (RUE limited by pain but at least 4/5) Motor examination - right side: 4/5: biceps, triceps, wrist flexion, wrist extension, sample card maker, 5/5: hip flexors, knee extensors, dorsiflexion, toe extension ( EHL), plantarflexion Motor examination - left side: 5/5: biceps, triceps, wrist flexion, wrist extension, sample card maker, hip flexors, knee extensors, dorsiflexion, toe extension (EHL) , plantarflexion Detailed sensory examination: intact, light touch, temperature Reflex and gait examination: intact Reflexes: 2+: ankle, bicep, knee, tricep - Musculoskeletal Musculoskeletal: Present: no fluid collection, no pain, normal range of motion - Psychiatric Psychiatric: Present: mood/affect appropriate, cooperative Results - Laboratory Findings CBC and BMP: 11/14/16 14:08 11/14/16 15:30 Abnormal Lab Findings: Abnormal Labs 11/15/16 05:45 Triglycerides 237 H Cholesterol 201 H Assessment and Plan 41 YO F Hx reportedly prior multiple strokes d/t protein C/S deficiency compliant on therapeutic Lovenox w/ some mild residual R arm numbness p/w progressive R arm numbness/tingling w/ severe radiating pain from the R shoulder in radiculopathy like pattern. Neuro exam normal aside from antalgic poor effort giveaway power in RUE. MRI Brain and MRA Head neg for acute/chronic lesions. I suspect cervical radiculopathy/MSK rather than stroke. Cds neg. LDL 109. Recs: 1. MRI C-spine w/o [place] 2. Pain relief: NSAIDs/Tylenol, narcotics etc 3. Cont home secondary stroke prevention therapy-Lovenox/statin 4. PT/OT
--- NOTE | 2016-11-15 14:14 | Progress Note ---
Assessment and Plan Assessment and plan: 41-year-old -[place] female with past medical history significant for multiple stroke, DVT, PE, protein C/S deficiency presented to the emergency department complaining of left-sided upper extremity weakness and numbness that started yesterday around 9 AM. Numbness and weakness is getting progressively worse then she presented to the emergency department this morning. Patient has multiple history of stroke and she is on therapeutic dose of Lovenox and has been followed by Joaquim Disla. Patient also complained pain and swelling of the right upper extremity. Patient denied headache, fever, chills. Patient denied chest pain, or bleeding. Right upper extremity Hemiparesis less likely CVA, rule out cervical radiculopathy Protein C/S deficiency with recurrent clot Right upper extremity thrombosis phlebitis superficial Obesity Hypercoagulable state Plan * Neurology and hematology input noted. Continue anticoagulation. Continue pain control. * Continue aspirin and statin * Will await MRI of the neck * The DVT and GI prophylaxis * PT OT evaluation and treat * Plan Of care discussed with the patient in detail and spent discharge in a.m. History Interval history: Patient was examined this morning in no acute distress consult is complaining of right upper extremity pain and weakness. Denies any other symptoms. No other adverse event reported nursing staff Hospitalist Physical - Physical exam Narrative exam: VITAL SIGNS: Reviewed. GENERAL: The patient appeared well nourished and normally developed. Vital signs as documented. HEAD: No signs of head trauma. EYES: Pupils are equal. Extraocular motions intact. EARS: Hearing grossly intact. MOUTH: Oropharynx is normal. NECK: No adenopathy, no JVD. CHEST: Chest with clear breath sounds bilaterally. No wheezes, rales, or rhonchi. CARDIAC: Regular rate and rhythm. S1 and S2, without murmurs, gallops, or rubs. VASCULAR: No Edema. Peripheral pulses normal and equal in all extremities. ABDOMEN: Soft, without detectable tenderness. No sign of distention. No rebound or guarding, and no masses palpated. Bowel Sounds normal. MUSCULOSKELETAL: Good range of motion of all major joints. Extremities without clubbing, cyanosis or edema. NEUROLOGIC EXAM: Alert and oriented x 3. No focal sensory or strength deficits except for right upper extremity patient unable to move indicates significant pain and tingling. She is able to squeeze with strength of about 2 over 5.. Speech normal. Follows commands. PSYCHIATRIC: Mood normal. SKIN: No rash or lesions. - Constitutional Vitals: Temp Pulse Resp BP Pulse Ox 98.2 F 84 18 129/89 100 11/15/16 11:30 11/15/16 11:30 11/15/16 11:30 11/15/16 11:30 11/15/16 11:30 General appearance: Present: mild distress, well-nourished Results - Labs CBC & Chem 7: 11/14/16 14:08 11/14/16 15:30 Labs: Laboratory Last Values WBC 8.5 K/mm3 (4.5-11.0) 11/14/16 14:08 RBC 3.95 M/mm3 (3.65-5.03) 11/14/16 14:08 Hgb 11.1 gm/dl (10.1-14.3) 11/14/16 14:08 Hct 33.9 % (30.3-42.9) 11/14/16 14:08 MCV 86 fl (79-97) 11/14/16 14:08 MCH 28 pg (28-32) 11/14/16 14:08 MCHC 33 % (30-34) 11/14/16 14:08 RDW 15.2 % (13.2-15.2) 11/14/16 14:08 Plt Count 257 K/mm3 (140-440) 11/14/16 14:08 Lymph % (Auto) 37.2 % (13.4-35.0) H 11/14/16 14:08 Tyrrell % (Auto) 6.1 % (0.0-7.3) 11/14/16 14:08 Eos % (Auto) 1.1 % (0.0-4.3) 11/14/16 14:08 Baso % (Auto) 0.6 % (0.0-1.8) 11/14/16 14:08 Lymph # 3.2 K/mm3 (1.2-5.4) 11/14/16 14:08 Tyrrell # 0.5 K/mm3 (0.0-0.8) 11/14/16 14:08 Eos # 0.1 K/mm3 (0.0-0.4) 11/14/16 14:08 Baso # 0.1 K/mm3 (0.0-0.1) 11/14/16 14:08 Seg Neutrophils % 55.0 % (40.0-70.0) 11/14/16 14:08 Seg Neutrophils # 4.7 K/mm3 (1.8-7.7) 11/14/16 14:08 PT 12.8 Sec. (12.2-14.9) 11/14/16 15:30 INR 0.92 (0.87-1.13) 11/14/16 15:30 APTT 28.6 Sec. (24.2-36.6) 11/14/16 15:30 Sodium 137 mmol/L (137-145) 11/14/16 15:30 Potassium 4.2 mmol/L (3.6-5.0) 11/14/16 15:30 Chloride 99.3 mmol/L (98-107) 11/14/16 15:30 Carbon Dioxide 26 mmol/L (22-30) 11/14/16 15:30 Anion Gap 16 mmol/L 11/14/16 15:30 BUN 15 mg/dL (7-17) 11/14/16 15:30 Creatinine 0.9 mg/dL (0.7-1.2) 11/14/16 15:30 Estimated GFR > 60 ml/min 11/14/16 15:30 BUN/Creatinine Ratio 16.66 % 11/14/16 15:30 Glucose 92 mg/dL (65-100) 11/14/16 15:30 POC Glucose 83 (70-105) 11/15/16 08:02 Calcium 9.0 mg/dL (8.4-10.2) 11/14/16 15:30 Total Bilirubin 0.20 mg/dL (0.1-1.2) 11/14/16 15:30 AST 21 units/L (5-40) 11/14/16 15:30 ALT 14 units/L (7-56) 11/14/16 15:30 Alkaline Phosphatase 84 units/L (35-129) 11/14/16 15:30 Total Creatine Kinase 150 units/L (30-135) H 11/14/16 15:30 CK-MB (CK-2) 1.1 ng/mL (0.0-4.0) 11/14/16 15:30 CK-MB (CK-2) Rel Index 0.7 (0-4) 11/14/16 15:30 Troponin T < 0.010 ng/mL (0.00-0.029) 11/14/16 15:30 Total Protein 7.4 g/dL (6.3-8.2) 11/14/16 15:30 Albumin 3.7 g/dL (3.9-5) L 11/14/16 15:30 Albumin/Globulin Ratio 1.0 % 11/14/16 15:30 Triglycerides 237 mg/dL (2-149) H 11/15/16 05:45 Cholesterol 201 mg/dL (50-199) H 11/15/16 05:45 LDL Cholesterol Direct 109 mg/dL (50-130) 11/15/16 05:45 HDL Cholesterol 45 mg/dL (40-59) 11/15/16 05:45 Cholesterol/HDL Ratio 4.46 % 11/15/16 05:45 Urine Color Straw (Yellow) 11/14/16 15:50 Urine Turbidity Clear (Clear) 11/14/16 15:50 Urine pH 8.0 (5.0-7.0) H 11/14/16 15:50 Ur Specific Cement 1.014 (1.003-1.030) 11/14/16 15:50 Urine Protein <15 mg/dl mg/dL (Negative) 11/14/16 15:50 Urine Glucose (UA) Neg mg/dL (Negative) 11/14/16 15:50 Urine Ketones Neg mg/dL (Negative) 11/14/16 15:50 Urine Blood Neg (Negative) 11/14/16 15:50 Urine Nitrite Neg (Negative) 11/14/16 15:50 Urine Bilirubin Neg (Negative) 11/14/16 15:50 Urine Urobilinogen < 2.0 mg/dL (<2.0) 11/14/16 15:50 Ur Leukocyte Esterase Sm (Negative) 11/14/16 15:50 Urine WBC (Auto) 3.0 /HPF (0.0-6.0) 11/14/16 15:50 Urine RBC (Auto) 1.0 /HPF (0.0-6.0) 11/14/16 15:50 U Epithel Cells (Auto) 2.0 /HPF (0-13.0) 11/14/16 15:50 Urine Mucus Few /HPF 11/14/16 15:50 Urine Opiates Screen Presumptive negative 11/14/16 15:50 Urine Methadone Screen Presumptive negative 11/14/16 15:50 Ur Barbiturates Screen Presumptive negative 11/14/16 15:50 Ur Phencyclidine Scrn Presumptive negative 11/14/16 15:50 Ur Amphetamines Screen Presumptive negative 11/14/16 15:50 U Benzodiazepines Scrn Presumptive negative 11/14/16 15:50 Urine Cocaine Screen Presumptive negative 11/14/16 15:50 U Marijuana (THC) Screen Presumptive negative 11/14/16 15:50 Drugs of Abuse Note Disclamer 11/14/16 15:50 - Imaging and Cardiology MRI - head: image reviewed (unremarkable)
--- NOTE | 2016-11-15 18:42 | Magnetic Resonance Report ---
FINAL REPORT EXAM: MR CERVICAL SPINE WO CON HISTORY: RUE pain/weakness TECHNIQUE: Multisequence multiplanar MR images obtained of the cervical spine without gadolinium. PRIORS: None. FINDINGS: No gross abnormality is seen in the visualized prevertebral soft tissues. Visualized portion of brain and spinal cord abnormal signal intensity in T1 and T2 weighted sequences. Bone marrow has normal signal intensity T1 and T2 weighted sequences. At C2-3, there is no focal disc protrusion, foraminal narrowing or canal stenosis. At C3-4, there is no focal disc protrusion, foraminal narrowing or canal stenosis. At C4-5 there is posterior extension of disc osteophyte complex, worse on the right. There effacement of the anterior aspect of the spinal cord. There is uncovertebral degenerative change. There is severe foraminal narrowing on the right. At C5-6, there is posterior extension of disc osteophyte complex. There effacement of the anterior aspect of the spinal cord. There is mild bilateral foraminal narrowing. At C6-7, there is posterior extension of disc osteophyte complex with slight effacement of anterior aspect of the spinal cord. There is not abnormal foraminal narrowing. At C7-T1, there is no focal disc protrusion, foraminal narrowing or canal stenosis. IMPRESSION: 1. Multilevel degenerative change is noted with associated foraminal narrowing as described above. There is effacement of the anterior aspect of the spinal cord at multiple levels as well.
--- NOTE | 2016-11-15 18:55 | Consultation ---
History of Present Illness - Reason for Consult Consult date: 11/15/16 - History of Present Illness Patient seen/examined, latest labs reviewed. All the w/up labs still pending results.Patient continues on anticoags.She had failed coumadin, before, and have also failed IVC filter along with LOW dose LMWH. in [facility] hem dept.She has hx of miscarriages, and have family hx of coagulability. Past History Past Medical History: DVT, pulmonary embolism, stroke, other (protein C/S deficiency) Past Surgical History: hysterectomy, hernia repair, Other ([place] filter) Social history: full code. denies: smoking, alcohol abuse, prescription drug abuse, IV drug use Family history: other (Multiple family member has SLE) Medications and Allergies Allergies Allergy/AdvReac Type Severity Reaction Status Date / Time acetaminophen [From Tylenol] Allergy Unknown Verified 07/07/15 16:25 blue dye Allergy Unknown Verified 07/07/15 16:25 hydrocodone bitartrate Allergy Unknown Verified 07/07/15 16:25 [From Lortab] NSAIDS (Non-Steroidal Allergy Unknown Verified 07/07/15 16:25 Anti-Inflamma oxycodone HCl [From Percocet] Allergy Unknown Verified 07/07/15 16:25 shellfish derived Allergy Unknown Verified 07/07/15 16:25 tramadol Allergy Unknown Verified 07/07/15 16:25 tramadol HCl [From Ultram] Allergy Unknown Verified 07/07/15 16:25 Home Medications Medication Instructions Recorded Confirmed Last Taken Type Esomeprazole Magnesium [NexIUM] 40 mg PO DAILY 11/02/14 11/14/16 11/12/16 History Hydromorphone HCl [Dilaudid] 4 mg PO Q6H PRN 11/02/14 11/14/16 11/12/16 History Morphine [Morphine TAB] 30 mg PO Q4H PRN 11/02/14 11/14/16 11/12/16 History diphenhydrAMINE [Benadryl] 50 mg PO Q4H PRN 11/02/14 11/14/16 11/12/16 History traZODone [Desyrel] 50 mg PO QHS 11/02/14 11/14/16 Unknown History Docusate Sodium [Colace] 100 mg PO DAILY 11/14/16 11/14/16 11/12/16 History Enoxaparin [Lovenox] 1 each SQ BID 11/14/16 11/14/16 11/13/16 History Morphine [Morphine TAB] 15 mg PO Q4H 11/14/16 11/14/16 11/12/16 History Active Meds: Active Medications Bisacodyl (Dulcolax) 10 mg FL QDAY PRN PRN Reason: Constipation Diphenhydramine HCl (Benadryl) 25 mg IV Q4H PRN PRN Reason: Itching Last Admin: 11/15/16 18:40 Dose: 25 mg Docusate Sodium (Colace) 100 mg PO BID [facility], [facility]1983 Last Admin: 11/15/16 12:15 Dose: 100 mg Enoxaparin Sodium (Lovenox) 100 mg 1 mg/kg (100 mg) SUB-Q Q12HR [facility], [facility]1983 Last Admin: 11/15/16 12:15 Dose: 100 mg Hydralazine HCl (Apresoline) 5 mg IV Q6H PRN PRN Reason: Keep SBP between 160-185 mm Hg Hydromorphone HCl (Dilaudid) 4 mg PO Q6H PRN PRN Reason: Pain , Severe (7-10) Magnesium Hydroxide (Milk Of Magnesia) 30 ml PO Q4H PRN PRN Reason: Constipation Metoclopramide HCl (Reglan) 10 mg PO Q6H PRN PRN Reason: Nausea And Vomiting Morphine Sulfate (Morphine) 2 mg IV Q4H PRN PRN Reason: Pain, Moderate (4-6) Last Admin: 11/15/16 18:39 Dose: 2 mg Ondansetron HCl (Zofran) 4 mg IV Q8H PRN PRN Reason: N/V unrelieved by Reglan Pantoprazole Sodium (Protonix) 40 mg PO DAILY [facility], [facility]1983 Last Admin: 11/15/16 12:15 Dose: 40 mg Promethazine HCl (Phenergan) 25 mg FL Q6H PRN PRN Reason: Nausea And Vomiting Simvastatin (Zocor) 20 mg PO QHS [facility]1983 Last Admin: 11/14/16 22:06 Dose: 20 mg Sodium Chloride (Sodium Chloride Flush Syringe 10 Ml) 10 ml IV PRN PRN PRN Reason: LINE FLUSH Trazodone HCl (Desyrel) 50 mg PO QHS [facility], [facility] Last Admin: 11/14/16 22:06 Dose: 50 mg Review of Systems Breasts: deferred Exam - Constitutional Vitals: Temp Pulse Resp BP Pulse Ox 98.2 F 84 18 129/89 100 11/15/16 18:34 11/15/16 18:34 11/15/16 18:34 11/15/16 18:34 11/15/16 18:34 General appearance: Present: no acute distress, well-nourished - EENT Eyes: Present: PERRL ENT: hearing intact, clear oral mucosa - Neck Neck: Present: supple, normal ROM - Respiratory Respiratory effort: normal Respiratory: bilateral: CTA - Cardiovascular Heart Sounds: Present: S1 & S2. Absent: rub, click - Extremities Extremities: pulses symmetrical, No edema Peripheral Pulses: within normal limits - Abdominal General gastrointestinal: Present: soft, non-tender, non-distended, normal bowel sounds Female genitourinary: Present: deferred - Rectal Rectal Exam: deferred - Integumentary Integumentary: Present: clear, warm, dry - Musculoskeletal Musculoskeletal: gait normal, strength equal bilaterally - Psychiatric Psychiatric: appropriate mood/affect, intact judgment & insight - Neurologic Neurologic: CNII-XII intact, moves all extremities Results - Labs CBC & Chem 7: 11/14/16 14:08 11/14/16 15:30 Labs: Abnormal lab results 11/15/16 Range/Units 05:45 Triglycerides 237 H (2-149) mg/dL Cholesterol 201 H (50-199) mg/dL Assessment and Plan - Patient Problems (1) CVA (cerebral vascular accident) Current Visit: Yes Status: Acute Qualifiers: CVA mechanism: unspecified Precerebral and cerebral artery: P Laterality of affected vessel: L Qualified Code(s): I63.9 - Cerebral infarction, unspecified Plan to address problem: Neurology eval. (2) Hypercoagulable state Current Visit: Yes Status: Acute Plan to address problem: Will do w/up. Will also need record from Joaquim., Anti coagulation, if no bleeding.
[2016-11-15] MEDS: ZOCOR PO SCH (21:37)
[2016-11-15] MEDS: DESYREL PO SCH (21:37)
[2016-11-16] MEDS: MORPHINE IV PRN ×2 (03:01→06:57)
[2016-11-16] MEDS: BENADRYL IV PRN ×2 (03:02→06:57)
[2016-11-16] MEDS: LOVENOX SUB-Q SCH (09:20)
[2016-11-16] MEDS: PROTONIX PO SCH (09:20)
[2016-11-16] MEDS: COLACE PO SCH (09:20)
--- NOTE | 2016-11-16 10:41 | Discharge Summary ---
Providers - Providers Date of Admission: 11/14/16 16:38 Date of discharge: 11/16/16 Attending physician: NITESH TOLEDO MD Primary care physician: CONFIGURATION MANAGEMENT ARCHITECT Hospitalization Reason for admission: right-sided hemiparesis Condition: Stable Hospital course: 41-year-old -[place] female with past medical history significant for multiple stroke, DVT, PE, protein C/S deficiency presented to the emergency department complaining of right-sided upper extremity weakness and numbness that started yesterday around 9 AM. Numbness and weakness is getting progressively worse then she presented to the emergency department this morning. Patient has multiple history of stroke and she is on therapeutic dose of Lovenox and has been followed by Joaquim Disla. Patient also complained pain and swelling of the right upper extremity. Patient denied headache, fever, chills. Patient denied chest pain, or bleeding. imaging studies noted and did not reveal acute pathology except for raculopathy. Patient will follow with New PCP/pearler Dr Villalobos per patients request and will get some physical therapy and possible surgical consult outpatient to be arranged by PCP if need. RIGHT UPPER EXT WEAKNESS NOW RESOLVED. Radiculopathy cervical Right upper extremity Hemiparesis Protein C/S deficiency with recurrent clot Right upper extremity thrombosis phlebitis superficial Obesity Hypercoagulable state Disposition: DC-30 STILL A PATIENT Time spent for discharge: 35 mins Core Measure Documentation - Palliative Care Palliative Care/ Comfort Measures: Not Applicable - Core Measures Any of the following diagnoses?: none - VTE Discharge Requirements Deep Vein Thrombosis/Pulmonary Embolism Present on Admission: No Exam - Physical Exam Narrative exam: VITAL SIGNS: Reviewed. GENERAL: The patient appeared well nourished and normally developed. Vital signs as documented. HEAD: No signs of head trauma. EYES: Pupils are equal. Extraocular motions intact. EARS: Hearing grossly intact. MOUTH: Oropharynx is normal. NECK: No adenopathy, no JVD. CHEST: Chest with clear breath sounds bilaterally. No wheezes, rales, or rhonchi. CARDIAC: Regular rate and rhythm. S1 and S2, without murmurs, gallops, or rubs. VASCULAR: No Edema. Peripheral pulses normal and equal in all extremities. ABDOMEN: Soft, without detectable tenderness. No sign of distention. No rebound or guarding, and no masses palpated. Bowel Sounds normal. MUSCULOSKELETAL: Good range of motion of all major joints. Extremities without clubbing, cyanosis or edema. NEUROLOGIC EXAM: Alert and oriented x 3. No focal sensory or strength deficits motor strenght on the right upper extremity is about 4 over 5. Speech normal. Follows commands. PSYCHIATRIC: Mood normal. SKIN: No rash or lesions. - Constitutional Vitals: Temp Pulse Resp BP Pulse Ox 98.2 F 109 H 20 113/73 99 11/16/16 09:03 11/16/16 09:03 11/16/16 09:03 11/16/16 09:03 11/16/16 09:03 Plan Activity: advance as tolerated, fall precautions Diet: low fat Special Instructions: physical therapy, occupational therapy Additional Instructions: follow with neurologist and Security Manager at [place], ALSO With pain specialist Follow up with: PRIMARY CARE, [Primary Care Provider] - 3-5 Days TERRY VILLALOBOS DO [Staff Physician] - 7 Days Prescriptions: Simvastatin [Zocor TAB] 20 mg PO QHS #30 tablet
[2016-11-16 13:08] VITALS: BP 121/80
--- NOTE | 2016-11-16 13:12 | Progress Note ---
Assessment and Plan 41 YO F Hx reportedly prior multiple strokes d/t protein C/S deficiency compliant on therapeutic Lovenox w/ some mild residual R arm numbness p/w progressive R arm numbness/tingling w/ severe radiating pain from the R shoulder in radiculopathy like pattern. Neuro exam normal aside from antalgic poor effort giveaway power in RUE. MRI Brain and MRA Head neg for acute/chronic lesions. I suspect cervical radiculopathy/MSK rather than stroke. Cds neg. LDL 109. MRI C-spine confirms multilevel C4-5, C5-6, and C6-7 spondylosis abutting spinal cord but no myelomalacia or intrinsic cord signal/edema. Recs: 1. Outpt spine surgery eval 2. Pain relief: NSAIDs/Tylenol, narcotics etc 3. Cont home secondary stroke prevention therapy-Lovenox/statin 4. PT/OT Subjective Date of service: 11/16/16 Principal diagnosis: radiculopathy cervical Interval history: RUE movement improvig. Objective - Vital Sign Vital Signs - 12hr 11/16/16 11/16/16 11/16/16 04:49 09:03 13:07 Temperature 97.8 F 98.2 F 98.1 F Pulse Rate [ 96 H 109 H 106 H Left Radial] Respiratory 20 20 20 Rate Blood Pressure 112/68 113/73 121/80 [Left Radial Artery] O2 Sat by Pulse 99 99 96 Oximetry - General Apperance Constitutional: uncomfortable - EENT EENT: ATNC, PERRL, mucous membranes moist, hearing intact, vision intact - Respiratory Respiratory: chest non-tender, normal breath sounds, no respiratory distress - Cardiovascular Cardiovascular: regular rate Extremities: no peripheral edema bilat, no clubbing, cyanosis, no inflammation, no ischemia or petechiae - Gastrointestinal Gastrointestinal: normoactive bowel sounds, soft, non-distended - Integumentary Integumentary: normal - Neurologic Cranial nerve examination: PERRL, EOMI, VFF, V1/V2/V3 grossly intact, face symmetric, tongue midline, intact, intact shoulder shrug, Intact Vestibulo- ocular r, intact corneal reflex, normal palatal elevation Speech examination: intact Motor examination - right side: 4/5: biceps (antalgic effort), triceps, wrist flexion, wrist extension, candle maker, 5/5: hip flexors, knee extensors, dorsiflexion, toe extension (EHL), plantarflexion Motor examination - left side: 5/5: biceps, triceps, wrist flexion, wrist extension, candle maker, hip flexors, knee extensors, dorsiflexion, toe extension (EHL) , plantarflexion Detailed sensory examination: intact, pain - Laboratory Findings CBC and BMP: 11/14/16 14:08 11/14/16 15:30 Abnormal Lab Findings: Abnormal Labs 11/15/16 11/15/16 05:45 21:11 POC Glucose 119 H Triglycerides 237 H Cholesterol 201 H
--- NOTE | 2016-11-16 16:47 | Vascular Lab Report ---
CAROTID DUPLEX STUDY: RIGHT PSVEDV CCA PROX: 9727 CCA DIST: 7824 ICA PROX: 4921 ICA MID: 8234 ICA DIST:[id number] ECA: 6715 VERT: 67 28 LEFT PSVEDV CCA PROX: 9327 CCA DIST: 8032 ICA PROX: 5422 ICA MID: 7838 ICA DIST: 8541 ECA: 7415 VERT: 36 12 REASON FOR EXAM: Stroke. COMMENTS ON THE RIGHT: Doppler frequency analysis is consistent with 16 to 49 percent diameter reduction of the internal carotid artery. Minimal amount of plaque is seen. The common carotid artery is patent. The external carotid artery is patent. The vertebral artery has antegrade flow. COMMENTS ON THE LEFT: Doppler frequency analysis is consistent with 16 to 49 percent diameter reduction of the internal carotid artery. Minimal amount of plaque is seen. The common carotid artery is patent. The external carotid artery is patent. The vertebral artery has antegrade flow. IMPRESSION: Less than 50% diameter reduction in the internal carotid arteries bilaterally. Consider repeat carotid artery duplex in 12 months.
[2016-11-17 12:17] LABS: Protein S, Free 115 % normal (50-147); Protein S, Total 110 % (70-140)
== END 2016-11-16 15:34 | disposition home or self-care (01) | DRG 74 ==
LOC: ED 13:57 → 4A 16:38
PROVIDERS: ADMIT Internal Medicine; ATTEND Internal Medicine
DX: M54.12 Radiculopathy, cervical region (principal); E46 Unspecified protein-calorie malnutrition; D68.59 Other primary thrombophilia; G81.91 Hemiplegia, unspecified affecting right dominant side; I82.601 Acute embolism and thrombosis of unspecified veins of right upper extremity; Z86.711 Personal history of pulmonary embolism; Z86.718 Personal history of other venous thrombosis and embolism; Z90.710 Acquired absence of both cervix and uterus; Z88.5 Allergy status to narcotic agent; Z91.013 Allergy to seafood; Z88.8 Allergy status to other drugs, medicaments and biological substances; Z91.041 Radiographic dye allergy status; Z68.34 Body mass index [BMI] 34.0-34.9, adult; Z98.51 Tubal ligation status; E66.9 Obesity, unspecified
CPT/HCPCS: 36415; 51701; 70450; 70544; 70551; 71010; 72141; 80053; 80061; 80307; 81001; 82024; 82550; 82553; 82962; 83516; 84484; 85025; 85220; 85240; 85301; 85305; 85307; 85610; 85613; 85730; 86038; 93005; 93010; 93306; 93880; 96372; 96374; 96375; J1200; J1650; J2270

== ENCOUNTER 2016-12-01 05:00 | Inpatient (IN) | payer SELFPAY ==
--- NOTE | 2016-12-01 06:46 | Cat Scan Report ---
FINAL REPORT PROCEDURE: CT HEAD/BRAIN WO CON TECHNIQUE: Computerized tomography of the head was performed without contrast material. HISTORY: numbness rt arm COMPARISON: 11/14/2016 FINDINGS: Skull and scalp: Normal. Paranasal sinuses: Normal. Ventricles and subarachnoid spaces: Normal. Cerebrum: No evidence of hemorrhage, acute infarction or mass . Cerebellum and brainstem: No evidence of hemorrhage, acute infarction or mass. Vasculature: Normal. Comments: None. IMPRESSION: Normal Examination
--- NOTE | 2016-12-01 07:29 | Emergency Department Report ---
ED General Adult HPI - General Chief complaint: Neuro Symptoms/Deficit Stated complaint: RT ARM SWELLING W/PAIN AND NUMBNESS Time Seen by Provider: 12/01/16 07:09 Source: patient Mode of arrival: Ambulatory Limitations: No Limitations - History of Present Illness Initial comments: She has a 41-year-old female past medical history of MN and prior CVA who presents with right arm pain and swelling going on for the last 3 hours. Patient states that the arm pain is in burning type of pain it is a 10 out of 10 the pain is constant and nothing makes the pain better moving her arm makes it worse. Patient states that she still feels her arm and is able to move it. But she is in pain whenever she moves her arm. Patient denies having any shortness of breath or having a headache. Patient states that she feels that her arm is slightly swollen and she also denies having fever. - Related Data Home Medications Medication Instructions Recorded Confirmed Last Taken Esomeprazole Magnesium [NexIUM] 40 mg PO DAILY 11/02/14 12/01/16 11/30/16 Hydromorphone HCl [Dilaudid] 4 mg PO Q6H PRN 11/02/14 12/01/16 11/12/16 Morphine [Morphine TAB] 30 mg PO Q4H PRN 11/02/14 12/01/16 11/12/16 diphenhydrAMINE [Benadryl CAP] 50 mg PO Q4H PRN 11/02/14 12/01/16 11/12/16 traZODone [Desyrel] 50 mg PO QHS 11/02/14 12/01/16 11/30/16 Docusate Sodium [Colace CAP] 100 mg PO DAILY 11/14/16 12/01/16 11/30/16 Enoxaparin [Lovenox] 1 each SQ BID 11/14/16 12/01/16 11/30/16 Morphine [Morphine TAB] 15 mg PO Q4H 11/14/16 12/01/16 11/12/16 Previous Rx's Medication Instructions Recorded Last Taken Type Simvastatin [Zocor TAB] 20 mg PO QHS #30 tablet 11/16/16 11/30/16 Rx Allergies Allergy/AdvReac Type Severity Reaction Status Date / Time acetaminophen [From Tylenol] Allergy Unknown Verified 07/07/15 16:25 blue dye Allergy Unknown Verified 07/07/15 16:25 hydrocodone bitartrate Allergy Unknown Verified 07/07/15 16:25 [From Lortab] NSAIDS (Non-Steroidal Allergy Unknown Verified 07/07/15 16:25 Anti-Inflamma oxycodone HCl [From Percocet] Allergy Unknown Verified 07/07/15 16:25 shellfish derived Allergy Unknown Verified 07/07/15 16:25 tramadol Allergy Unknown Verified 07/07/15 16:25 tramadol HCl [From Ultram] Allergy Unknown Verified 07/07/15 16:25 ED Review of Systems ROS: Stated complaint: RT ARM SWELLING W/PAIN AND NUMBNESS Other details as noted in HPI Constitutional: denies: chills, fever Eyes: denies: eye pain, eye discharge, vision change ENT: denies: ear pain, throat pain Respiratory: denies: cough, shortness of breath, wheezing Cardiovascular: denies: chest pain, palpitations Endocrine: no symptoms reported Gastrointestinal: denies: abdominal pain, nausea, diarrhea Genitourinary: denies: urgency, dysuria, discharge Musculoskeletal: other (arm pain ) Skin: denies: rash, lesions Neurological: denies: headache, weakness, paresthesias Psychiatric: denies: anxiety, depression Hematological/Lymphatic: denies: easy bleeding, easy bruising ED Past Medical Hx - Past Medical History Previous Medical History?: Yes Hx Hypertension: Yes Hx CVA: Yes (2) Hx Congestive Heart Failure: No Hx Diabetes: No Hx Pulmonary Embolism: Yes Hx Asthma: No Hx COPD: No Additional medical history: Protein c and s Def. June PE - Surgical History Past Surgical History?: Yes Additional Surgical History: tubal ligation. endometrial ablation - Social History Smoking Status: Never Smoker Substance Use Type: None - Medications Home Medications: Home Medications Medication Instructions Recorded Confirmed Last Taken Type Esomeprazole Magnesium [NexIUM] 40 mg PO DAILY 11/02/14 12/01/16 11/30/16 History Hydromorphone HCl [Dilaudid] 4 mg PO Q6H PRN 11/02/14 12/01/16 11/12/16 History Morphine [Morphine TAB] 30 mg PO Q4H PRN 11/02/14 12/01/16 11/12/16 History diphenhydrAMINE [Benadryl CAP] 50 mg PO Q4H PRN 11/02/14 12/01/16 11/12/16 History traZODone [Desyrel] 50 mg PO QHS 11/02/14 12/01/16 11/30/16 History Docusate Sodium [Colace CAP] 100 mg PO DAILY 11/14/16 12/01/16 11/30/16 History Enoxaparin [Lovenox] 1 each SQ BID 11/14/16 12/01/16 11/30/16 History Morphine [Morphine TAB] 15 mg PO Q4H 11/14/16 12/01/16 11/12/16 History Simvastatin [Zocor TAB] 20 mg PO QHS #30 tablet 11/16/16 12/01/16 11/30/16 Rx ED Physical Exam - General Limitations: No Limitations General appearance: alert, in no apparent distress - Head Head exam: Present: atraumatic, normocephalic - Eye Eye exam: Present: normal appearance - ENT ENT exam: Present: mucous membranes moist - Neck Neck exam: Present: normal inspection - Respiratory Respiratory exam: Present: normal lung sounds bilaterally. Absent: respiratory distress - Cardiovascular Cardiovascular Exam: Present: regular rate, normal rhythm. Absent: systolic murmur, diastolic murmur, rubs, gallop - GI/Abdominal GI/Abdominal exam: Present: soft, normal bowel sounds - Extremities Exam Extremities exam: Present: other (right arm intact radial and ulnar pulses and good cap refill patient has 2 point sensation intact she is tender to palpation on her right proximal arm.) - Neurological Exam Neurological exam: Present: alert, oriented X3 - Psychiatric Psychiatric exam: Present: normal affect, normal mood - Skin Skin exam: Present: warm, dry, intact, normal color. Absent: rash ED Course Vital Signs 12/01/16 12/01/16 12/01/16 05:20 06:15 06:20 Temperature 98.5 F Pulse Rate 91 H 79 69 Respiratory 20 11 L 12 Rate Blood Pressure 150/98 129/86 Blood Pressure [Left] O2 Sat by Pulse 98 100 100 Oximetry 12/01/16 12/01/16 12/01/16 06:30 06:31 06:32 Temperature 98.3 F Pulse Rate 78 Respiratory 16 16 Rate Blood Pressure 119/85 Blood Pressure 129/86 [Left] O2 Sat by Pulse 99 Oximetry 12/01/16 12/01/1617 06:40 06:50 07:00 Temperature Pulse Rate 68 67 76 Respiratory 18 18 19 Rate Blood Pressure 119/85 131/89 129/82 Blood Pressure [Left] O2 Sat by Pulse 98 99 98 Oximetry 12/01/16 12/01/16 12/01/16 07:10 07:20 07:30 Temperature Pulse Rate 69 90 75 Respiratory 15 13 17 Rate Blood Pressure 136/86 136/86 136/86 Blood Pressure [Left] O2 Sat by Pulse 99 100 100 Oximetry 12/01/16 12/01/16 12/01/16 07:33 07:40 07:50 Temperature 97.4 F L Pulse Rate 88 77 74 Respiratory 16 15 22 Rate Blood Pressure 136/86 136/86 Blood Pressure 136/86 [Left] O2 Sat by Pulse 100 100 99 Oximetry 12/01/16 12/01/16 12/01/16 08:00 08:10 08:16 Temperature Pulse Rate 80 81 Respiratory 22 20 16 Rate Blood Pressure 127/83 127/83 Blood Pressure [Left] O2 Sat by Pulse 98 100 Oximetry 12/01/16 12/01/16 12/01/16 08:20 08:30 08:40 Temperature Pulse Rate 87 82 76 Respiratory 18 10 L 13 Rate Blood Pressure 127/83 127/83 127/83 Blood Pressure [Left] O2 Sat by Pulse 100 88 100 Oximetry 12/01/16 12/01/16 12/01/16 08:50 09:00 09:10 Temperature Pulse Rate 72 66 74 Respiratory 18 18 10 L Rate Blood Pressure 127/83 134/78 134/78 Blood Pressure [Left] O2 Sat by Pulse 100 99 100 Oximetry 12/01/16 12/01/16 12/01/16 09:20 09:30 09:40 Temperature Pulse Rate 69 96 H 88 Respiratory 19 11 L 11 L Rate Blood Pressure 134/78 134/78 134/78 Blood Pressure [Left] O2 Sat by Pulse 100 99 100 Oximetry 12/01/16 12/01/16 12/01/16 09:50 10:00 10:10 Temperature Pulse Rate 72 78 84 Respiratory 20 10 L 11 L Rate Blood Pressure 134/78 121/74 121/74 Blood Pressure [Left] O2 Sat by Pulse 100 98 100 Oximetry 12/01/16 12/01/16 12/01/16 10:19 10:20 10:30 Temperature Pulse Rate 85 88 Respiratory 16 12 10 L Rate Blood Pressure 121/74 Blood Pressure [Left] O2 Sat by Pulse 99 100 Oximetry 12/01/16 12/01/16 12/01/16 10:40 10:50 11:00 Temperature Pulse Rate 80 76 93 H Respiratory 16 12 16 Rate Blood Pressure 121/74 121/74 121/74 Blood Pressure [Left] O2 Sat by Pulse 99 99 99 Oximetry 12/01/16 12/01/16 12/01/16 11:10 11:20 11:30 Temperature Pulse Rate 93 H 84 72 Respiratory 12 15 16 Rate Blood Pressure 132/89 132/89 132/89 Blood Pressure [Left] O2 Sat by Pulse 99 100 100 Oximetry 12/01/16 12/01/16 11:40 11:49 Temperature Pulse Rate 114 H Respiratory 14 16 Rate Blood Pressure 121/74 Blood Pressure [Left] O2 Sat by Pulse 100 Oximetry - Reevaluation(s) Reevaluation #1: 12/01/16 08:24 EJ has been placed in I will order patient IV pain medication. - EJ/Peripheral Line Neck R Time Out Performed: Yes (verbal consent obtained) Indications: nurses unable to establis Skin Cleansed in Sterile Fashion: Yes Size: 20 Dressing Placed: Tegaderm Patient Tolerated Procedure: well Additional Comments: Used ultrasound guidance to determine vein ED Medical Decision Making - Lab Data Result diagrams: 12/01/16 07:48 12/01/16 07:48 - EKG Data -: EKG Interpreted by Me - EKG Data 12/01/16 07:28 EKG shows normal sinus rhythm no ST segment elevation or T-wave inversion - Medical Decision Making Chief medical diagnosis: Neuropathy Differential medical diagnosis: Non-STEMI, metabolic abnormality, myalgia All given IV analgesic medication, CBC, CMP, PTT INR, EKG, Critical care attestation.: If time is entered above; I have spent that time in minutes in the direct care of this critically ill patient, excluding procedure time. ED Disposition Clinical Impression: Right arm weakness, Neuropathy Condition: Stable Referrals: PRIMARY CARE, [Primary Care Provider] - 3-5 Days
[2016-12-01] MEDS ORDERED: MORPHINE IV ONE ×2 (07:49→10:09)
[2016-12-01] MEDS ORDERED: BENADRYL IV ONE ×2 (07:51→10:14)
[2016-12-01] MEDS ORDERED: BENADRYL ONE (07:58)
[2016-12-01 08:15] LABS: INR 0.98 (0.87-1.13)
[2016-12-01 08:19] LABS: Basophils % (Auto) 2.1 % (0.0-1.8); Eosinophils % (Auto) 1.6 % (0.0-4.3); Hematocrit 33.4 % (30.3-42.9); Mean Corpuscular HGB Conc 33 % (30-34); Mean Corpuscular Hemoglobin 28 pg (28-32); Mean Corpuscular Volume 85 fl (79-97); Platelet Count 284 K/mm3 (140-440); Red Blood Count 3.95 M/mm3 (3.65-5.03); Red Cell Distribution Width 14.5 % (13.2-15.2); White Blood Count 6.1 K/mm3 (4.5-11.0)
[2016-12-01 08:24] LABS: Anion Gap 16 mmol/L; BUN/Creatinine Ratio 18.57; Blood Urea Nitrogen 13 mg/dL (7-17); Calcium 8.8 mg/dL (8.4-10.2); Carbon Dioxide 26 mmol/L (22-30); Chloride 101.5 mmol/L (98-107); Glucose 95 mg/dL (65-100); Potassium 4.2 mmol/L (3.6-5.0); Sodium 139 mmol/L (137-145)
[2016-12-01] MEDS ORDERED: REGLAN IV ONE (10:14)
[2016-12-01] MEDS ORDERED: DILAUDID IV ONE (10:27)
--- NOTE | 2016-12-01 13:40 | Admit Criteria Form ---
Admission Criteria Documentation: NEUROLOGY GRG Clinical Indications for Admission to Inpatient Care (Place ' X' for any and all applicable criteria): Hospital admission is needed for appropriate care of the patient because of 1 or more of the following: [ ]I. Encephalitis [ ]II. Severe [employer] infections indicated by 1 or more of the following(1)(2)(3) : [ ]a) Intracranial abscess [ ]b) Spinal abscess or myelitis [ ]c) Tuberculous or other nonbacterial, nonviral [employer] infection(8) [ ]III. Vasculitis and 1 or more of the following(14)(15): []a) Altered mental status that is severe or persistent or other acute neurologic change []b) Psychosis []c) Seizure [ ]IV. Status epilepticus or repetitive seizures not controlled with emergent treatment [A] (7)(8) [ ]V. Altered mental status that is severe or persistent [ ]. Transient alteration in consciousness with high-risk etiology; examples include (12)(13): [ ]a) Cardiovascular source [ ]b) Cataplexy [ ]VII. Cerebral aneurysm requiring ANY ONE of the following(14): [ ]a) IV antihypertensives or vasoactive agents [ ]b) Sedation and analgesia for suspected leak [ ]c) Need for external ventricular drainage and cerebral perfusion pressure monitoring [ ]d) Emergent evaluation to determine need for surgical clipping or endovascular coiling by interventional radiology. If surgery is required ( Also use Craniotomy, Supratentorial, for Surgery of Bleeding Intracranial Aneurysm (for bleeding aneurysm) or Craniotomy, Supratentorial (for nonbleeding aneurysm) as appropriate. [ ]VIII. New-onset severe neurologic symptom requiring inpatient care indicated by ANY ONE of the following: [ ]a) Aphasia(15) [ ]b) Weakness (grade 3 or less) [ ]c) Paralysis (eg, hemiplegia) [ ]d) Spasticity(16) [ ]e) Dystonia [ ]e) Ataxia(17) [ ]f) Amnesia(18) [ ]g) Involuntary movements(19) [ ]h) Vertigo [ ] Visual loss [ ]i) Other severe neurologic finding (eg, papilledema, mass effect on imaging, myoclonus not treatable at alternative level of care (eg, observation care) [ ]IX. Guillain-Byron syndrome(20) [ ]X. Myasthenia gravis crisis or inpatient monitoring need as indicated by 1 or more of the following(21): [ ]a) Intensive treatment (eg, course of plasmapheresis) with inadequate outpatient situation to monitor patients status [ ]b) Inadequate airway protection [ ]c) Respiratory insufficiency requiring intubation or inpatient. monitoring [ ]d) Progressive dysphagia with failure to thrive [ ]XI. Multiple sclerosis or other acute demyelinating disease requiring inpatient care as indicated by 1 or more of the following (22)(23): [ ]a) Acute severe deterioration requiring inpatient treatment (eg, IV steroids, plasmapheresis, close observation) [ ]b) Acute complication requiring inpatient care (eg, sepsis, severe decubitus, aspiration) [ ]XII.Parkinson disease requiring inpatient care (Also use Optimal Recovery Care Criteria or General Recovery Criteria as appropriate) indicated by 1 or more of the following(25): [ ]a) Infection (eg, aspiration pneumonia) not treatable at alternative level of care [ ]b Dehydration that is severe or persistent [ ]c) Life-threatening agitation or psychotic behavior not treatable on emergency, observation care, or alternative level (eg, residential) basis [ ]d) Severe medication withdrawal effects (eg, freezing, neuroleptic malignant syndrome) not responsive to emergency and observation care treatment ( as appropriate) [ ]e) Other severe manifestation not treatable at alternative level of care [ ]XII. Amyotrophic lateral sclerosis with inpatient care needs as indicated by ANY ONE of the following(26): [ ]a) Acute complications (eg, aspiration pneumonia, sepsis ) requiring inpatient care ( see other optimal Recovery Guideline as appropriate) [ ]b) Dehydration that is severe persistent AND artificial support desired [ ]c) Inadequate airway protection AND artificial support desired [ ]d) Severe ventilatory insufficiency AND artificial support desired [ ]XIII. Myasthenia gravis crisis or inpatient monitoring need as indicated by 1 or more of the following(21): [] a) Inadequate airway protection []b) Respiratory insufficiency requiring intubation or inpatient monitoring []c) Progressive dysphagia with failure to thrive []d) Intensive treatment (e.g., course of plasmapheresis) with inadequate outpatient situation to monitor patients status [ ]XIV. Multiple sclerosis or other acute demyelinating disease requiring inpatient care indicated by 1 or more of the following[C](36)(43)(44)(45)(46): []a) Acute severe deterioration requiring inpatient treatment (eg, IV steroids, plasmapheresis, close observation) []b) Acute complication requiring inpatient care (eg, sepsis, severe decubitus, aspiration) [ ]XV. Intracranial hypertension (e.g., pseudotumor cerebri) requiring inpatient care (e.g., acute visual loss, inadequate oral intake) (47)(48)(49) [ ]XVI. Parkinson disease requiring inpatient care (Also use Optimal Recovery Care Criteria or General Recovery Criteria as appropriate) indicated by 1 or more of the following(25): [] a) Infection (e.g., aspiration pneumonia) not treatable at alternative level of care []b) Volume depletion not responsive to emergency and observation care treatment (as appropriate) []c) Life-threatening agitation or psychotic behavior not treatable on emergency, observation care, or alternative level (e.g., residential) basis []d) Severe medication withdrawal effects (e.g., freezing, neuroleptic malignant syndrome) not responsive to emergency and observation care treatment (as appropriate) []e) Other severe manifestation not treatable at alternative level of care [ ]XVII. Amyotrophic lateral sclerosis with inpatient care needs as indicated by1 or more of the following(42): []a) Acute complications (eg, aspiration pneumonia, sepsis) requiring inpatient care (see other Optimal Recovery Guideline or General Recovery Guideline as appropriate) []b) Dehydration that is severe or persistent AND artificial support desired []c) Inadequate airway protection AND artificial support desired []d) Severe ventilatory insufficiency AND artificial support desired [ ]XVIII. Severe myopathy, neuropathy, or other neuromuscular disease indicated by 1 or more of the following(42)(52)(53)(54): []a ) New-onset severe diffuse weakness (eg, strength 3/5 or less) []b) Severe dysphagia []c) Dyspnea at rest or with minimal exertion (new) []d) Inadequate airway protection []e) Inadequate ventilation indicated by 1 or more of the following : i) Partial pressure of carbon dioxide greater than 44 mm Hg ( 5.9 kPa) (new) ii) Reduced peak expiratory flow rate (new) iii) Vital capacity less than 50% of predicted (less than 15 mL/kg) iv) Peak inspiratory force less negative than -30 cm H2O (- 2942 Pa) [ ]XVII.Complications of congenital or degenerative disease (eg, infection, seizures, dehydration, injury) not responsive to emergency and observation care treatment (as appropriate ) [C](16)(29)(30) [ ]XVIII.Suspected or confirmed nerve or muscle toxic injury, including ANY ONE of the following: [ ]a) Rhabdomyolysis(31) i) Acute renal failure ii) Dehydration that is severe or persistent iii) Altered mental status that is severe or persistent iv) Electrolyte abnormality that remains after emergency or observation level care ( as appropriate) [ ]b) Botulism(32) [ ]c) Other severe toxin-induced sign or symptom [ ]XIX. Neurologic trauma requiring inpatient treatment (medical) indicated by ANY ONE of the following(33)(34): [ ]a) Vital signs or neurologic signs more frequently than every 4 hours [ ]b) Hyperosmolar therapy [ ]c) Respiratory monitoring [ ]d) Intracranial pressure monitoring and treatment [ ]e) Stabilization and immobilization device placement (eg, braces, body jacket) [ ]f) Intubation & mechanical ventilation for airway protection or therapeutic hyperventilation [ ]g) Other treatment or monitoring needed that requires inpatient level of care [ ]XX.Complications of neurologic devices (eg, ventricular shunt, neurostimulator) requiring 1 or more of the following(35)(36): [ ]a) IV antibiotics with monitoring while awaiting culture results [ ]b) Monitoring for hydrocephalus [X]XXI. Neurology condition symptom, or finding for which emergency and observation care have failed or are not considered appropriate. See General Criteria: Observation Care ISC, General Admission Criteria GRG, or Pediatric General Admission Criteria GRG guideline as appropriate. The original [facility] [employer] content created by [employer] has been revised. The portions of the content which have been revised are identified through the use of italic text or in bold, and [facility] has neither reviewed nor approved the modified material. All other unmodified content is copyright [facility] Please see references footnoted in the original [facility] edition 2016 Admission Criteria Met: Yes
[2016-12-01] MEDS ORDERED: DILAUDID IV PRN (15:35)
[2016-12-01] MEDS ORDERED: ZOFRAN IV PRN ×3 (16:12→21:03)
[2016-12-01] MEDS ORDERED: BENADRYL IV PRN ×2 (16:20→20:56)
[2016-12-01] MEDS ORDERED: DILAUDID IM PRN (20:49)
[2016-12-01] MEDS ORDERED: MORPHINE PO PRN (21:00)
[2016-12-01] MEDS ORDERED: DULCOLAX PR PRN (21:03)
[2016-12-01] MEDS ORDERED: TYLENOL PO PRN (21:03)
[2016-12-01] MEDS ORDERED: MILK OF MAGNESIA PO PRN (21:03)
[2016-12-01] MEDS ORDERED: SODIUM CHLORIDE FLUSH SYRINGE 10 ML IV PRN (21:10)
--- NOTE | 2016-12-01 21:14 | History and Physical Report ---
History of Present Illness Date of examination: 12/01/16 Date of admission: 12/01/16 13:17 Chief complaint: CC RUE weakness pain and numbness for 3 hrs History of present illness: - History of Present Illness Initial comments: She has a 41-year-old female past medical history of [place] and prior CVA who presents with right arm pain and swelling going on for the last 3 hours. Patient states that the arm pain is in burning type of pain it is a 10 out of 10 the pain is constant and nothing makes the pain better moving her arm makes it worse. Also RUE weakness for few hrs Patient states that she still feels her arm and is able to move it. But she is in pain whenever she moves her arm. Patient denies having any shortness of breath or having a headache. Patient states that she feels that her arm is slightly swollen and she also denies having fever. Past Medical History Previous Medical History?: Yes Hx Hypertension: Yes Hx CVA: Yes (2) Hx Congestive Heart Failure: No Hx Diabetes: No Hx Pulmonary Embolism: Yes Hx Asthma: No Hx COPD: No Additional medical history: Protein c and s Def. June PE - Surgical History Past Surgical History?: Yes Additional Surgical History: tubal ligation. endometrial ablation - Social History Smoking Status: Never Smoker Substance Use Type: None - Medications Home Medications: Home Medications Medication Instructions Recorded Confirmed Last Taken Type Esomeprazole Magnesium [NexIUM] 40 mg PO DAILY 11/02/14 12/01/16 11/30/16 History Hydromorphone HCl [Dilaudid] 4 mg PO Q6H PRN 11/02/14 12/01/16 11/12/16 History Morphine [Morphine TAB] 30 mg PO Q4H PRN 11/02/14 12/01/16 11/12/16 History diphenhydrAMINE [Benadryl CAP] 50 mg PO Q4H PRN 11/02/14 12/01/16 11/12/16 History traZODone [Desyrel] 50 mg PO QHS 11/02/14 12/01/16 11/30/16 History Docusate Sodium [Colace CAP] 100 mg PO DAILY 11/14/16 12/01/16 11/30/16 History Enoxaparin [Lovenox] 1 each SQ BID 11/14/16 12/01/16 11/30/16 History Morphine [Morphine TAB] 15 mg PO Q4H 11/14/16 12/01/16 11/12/16 History Simvastatin [Zocor TAB] 20 mg PO QHS #30 tablet 11/16/16 12/01/16 11/30/16 Rx ROS: Stated complaint: RT ARM SWELLING W /PAIN AND NUMBNESS and weakness Other details as noted in HPI Constitutional: denies: chills, fever Eyes: denies: eye pain, eye discharge, vision change ENT: denies: ear pain, throat pain Respiratory: denies: cough, shortness of breath, wheezing Cardiovascular: denies: chest pain, palpitations Endocrine: no symptoms reported Gastrointestinal: denies: abdominal pain, nausea, diarrhea Genitourinary: denies: urgency, dysuria, discharge Musculoskeletal: other (arm pain ) Skin: denies: rash, lesions Neurological: denies: headache, weakness, paresthesias Psychiatric: denies: anxiety, depression Hematological/Lymphatic: denies: easy bleeding, easy bruising Medications and Allergies Allergies Allergy/AdvReac Type Severity Reaction Status Date / Time acetaminophen [From Tylenol] Allergy Unknown Verified 07/07/15 16:25 blue dye Allergy Unknown Verified 07/07/15 16:25 hydrocodone bitartrate Allergy Unknown Verified 07/07/15 16:25 [From Lortab] NSAIDS (Non-Steroidal Allergy Unknown Verified 07/07/15 16:25 Anti-Inflamma oxycodone HCl [From Percocet] Allergy Unknown Verified 07/07/15 16:25 shellfish derived Allergy Unknown Verified 07/07/15 16:25 tramadol Allergy Unknown Verified 07/07/15 16:25 tramadol HCl [From Ultram] Allergy Unknown Verified 07/07/15 16:25 Home Medications Medication Instructions Recorded Confirmed Last Taken Type Esomeprazole Magnesium [NexIUM] 40 mg PO DAILY 11/02/14 12/01/16 11/30/16 History Hydromorphone HCl [Dilaudid] 4 mg PO Q6H PRN 11/02/14 12/01/16 11/12/16 History Morphine [Morphine TAB] 30 mg PO Q4H PRN 11/02/14 12/01/16 11/12/16 History diphenhydrAMINE [Benadryl CAP] 50 mg PO Q4H PRN 11/02/14 12/01/16 11/12/16 History traZODone [Desyrel] 50 mg PO QHS 11/02/14 12/01/16 11/30/16 History Docusate Sodium [Colace CAP] 100 mg PO DAILY 11/14/16 12/01/16 11/30/16 History Enoxaparin [Lovenox] 1 each SQ BID 11/14/16 12/01/16 11/30/16 History Morphine [Morphine TAB] 15 mg PO Q4H 11/14/16 12/01/16 11/12/16 History Simvastatin [Zocor TAB] 20 mg PO QHS #30 tablet 11/16/16 12/01/16 11/30/16 Rx Active Meds: Active Medications Acetaminophen (Tylenol) 650 mg PO Q4H PRN PRN Reason: Pain MILD(1-3)/Fever >100.5/CASTRO Bisacodyl (Dulcolax) 10 mg [place] QDAY PRN PRN Reason: Constipation unrelieved by MOM Diphenhydramine HCl (Benadryl) 25 mg IV Q4H PRN PRN Reason: Itching Diphenhydramine HCl (Benadryl) 50 mg PO Q4H PRN PRN Reason: Pain Docusate Sodium (Colace) 100 mg PO DAILY [facility] Enoxaparin Sodium (Lovenox) 40 mg SUB-Q QDAY [facility] Enoxaparin Sodium (Lovenox) mg SUB-Q BID [facility] Hydromorphone HCl (Dilaudid) 1 mg IM Q4H PRN PRN Reason: Pain, Moderate (4-6) Hydromorphone HCl (Dilaudid) 4 mg PO Q6H PRN PRN Reason: Pain Dextrose/Sodium Chloride (D5ns) 1,000 mls @ 75 mls/hr IV DIRECT [facility] Magnesium Hydroxide (Milk Of Magnesia) 30 ml PO Q4H PRN PRN Reason: Constipation Miscellaneous Medication (Esomeprazole Magnesium [Nexium]) 40 mg PO DAILY [facility] Morphine Sulfate (Morphine) 15 mg PO Q4H PRN PRN Reason: Pain , Severe (7-10) Ondansetron HCl (Zofran) 4 mg IV Q4H PRN PRN Reason: Nausea And Vomiting Ondansetron HCl (Zofran) 4 mg IV Q8H PRN PRN Reason: N/V unrelieved by Reglan Simvastatin (Zocor) 20 mg PO QHS [facility] Simvastatin (Zocor) 20 mg PO QHS [facility] Sodium Chloride (Sodium Chloride Flush Syringe 10 Ml) 10 ml INJ PRN PRN PRN Reason: LINE FLUSH Trazodone HCl (Desyrel) 50 mg PO QHS [facility] Exam - Constitutional Vitals: Temp Pulse Resp BP Pulse Ox 98.4 F 94 H 15 119/85 95 12/01/16 14:00 12/01/16 16:00 12/01/16 14:00 12/01/16 14:00 12/01/16 19:55 General appearance: Present: no acute distress, well-nourished - EENT Eyes: Present: PERRL ENT: hearing intact, clear oral mucosa - Neck Neck: Present: supple, normal ROM - Respiratory Respiratory effort: normal Respiratory: bilateral: CTA - Cardiovascular Heart rate: 80 Rhythm: regular Heart Sounds: Present: S1 & S2. Absent: rub, click - Extremities Extremities: no ischemia, pulses intact, pulses symmetrical, No edema Peripheral Pulses: within normal limits - Abdominal General gastrointestinal: Present: soft, non-tender, non-distended, normal bowel sounds Female genitourinary: Present: normal - Integumentary Integumentary: Present: clear, warm, dry - Musculoskeletal Musculoskeletal: gait normal, strength equal bilaterally - Psychiatric Psychiatric: appropriate mood/affect, intact judgment & insight - Neurologic Neurologic: CNII-XII intact, focal deficits (RUE power 3/5 and painful ROM), moves all extremities - Allied Health Allied health notes reviewed: nursing Results - Labs CBC & Chem 7: 12/01/16 07:48 12/01/16 07:48 Labs: Laboratory Last Values WBC 6.1 K/mm3 (4.5-11.0) 12/01/16 07:48 RBC 3.95 M/mm3 (3.65-5.03) 12/01/16 07:48 Hgb 11.0 gm/dl (10.1-14.3) 12/01/16 07:48 Hct 33.4 % (30.3-42.9) 12/01/16 07:48 MCV 85 fl (79-97) 12/01/16 07:48 MCH 28 pg (28-32) 12/01/16 07:48 MCHC 33 % (30-34) 12/01/16 07:48 RDW 14.5 % (13.2-15.2) 12/01/16 07:48 Plt Count 284 K/mm3 (140-440) 12/01/16 07:48 Lymph % (Auto) 43.9 % (13.4-35.0) H 12/01/16 07:48 [place] % (Auto) 6.0 % (0.0-7.3) 12/01/16 07:48 Eos % (Auto) 1.6 % (0.0-4.3) 12/01/16 07:48 Baso % (Auto) 2.1 % (0.0-1.8) H 12/01/16 07:48 Lymph # 2.7 K/mm3 (1.2-5.4) 12/01/16 07:48 [place] # 0.4 K/mm3 (0.0-0.8) 12/01/16 07:48 Eos # 0.1 K/mm3 (0.0-0.4) 12/01/16 07:48 Baso # 0.1 K/mm3 (0.0-0.1) 12/01/16 07:48 Seg Neutrophils % 46.4 % (40.0-70.0) 12/01/16 07:48 Seg Neutrophils # 2.8 K/mm3 (1.8-7.7) 12/01/16 07:48 PT 12.9 Sec. (12.2-14.9) 12/01/16 07:48 INR 0.98 (0.87-1.13) 12/01/16 07:48 APTT 28.0 Sec. (24.2-36.6) 12/01/16 07:48 Thrombin Time 15.9 Sec. (15.1-19.6) 12/01/16 07:48 Sodium 139 mmol/L (137-145) 12/01/16 07:48 Potassium 4.2 mmol/L (3.6-5.0) 12/01/16 07:48 Chloride 101.5 mmol/L (98-107) 12/01/16 07:48 Carbon Dioxide 26 mmol/L (22-30) 12/01/16 07:48 Anion Gap 16 mmol/L 12/01/16 07:48 BUN 13 mg/dL (7-17) 12/01/16 07:48 Creatinine 0.7 mg/dL (0.7-1.2) 12/01/16 07:48 Estimated GFR > 60 ml/min 12/01/16 07:48 BUN/Creatinine Ratio 18.57 % 12/01/16 07:48 Glucose 95 mg/dL (65-100) 12/01/16 07:48 Calcium 8.8 mg/dL (8.4-10.2) 12/01/16 07:48 Total Creatine Kinase 130 units/L (30-135) 12/01/16 07:48 Troponin T < 0.010 ng/mL (0.00-0.029) 12/01/16 07:48 HCG, Qual Negative (Negative) 12/01/16 07:48 - Imaging and Cardiology EKG: report reviewed CT Scan - head: report reviewed (NAF) Assessment and Plan Advance Directives: Yes VTE prophylaxis?: Chemical Plan of care discussed with patient/family: Yes - Patient Problems (1) CVA (cerebral vascular accident) Current Visit: No Status: Acute Qualifiers: CVA mechanism: unspecified Precerebral and cerebral artery: P Laterality of affected vessel: L Qualified Code(s): I63.9 - Cerebral infarction, unspecified Plan to address problem: RUE weakness.Not convincing .Can be sec rt shoulder bursitis.MRI MRA ECHO and CDS ordered (2) Hypercoagulable state Current Visit: No Status: Chronic Plan to address problem: Patient on Lovenox 100 sq q 12 for recurrent PE's.Had IVC filter which was removed in the past. (3) Chronic pain Current Visit: Yes Status: Chronic Qualifiers: Chronic pain type: chronic pain syndrome Qualified Code(s): G89.4 - Chronic pain syndrome Plan to address problem: On Morphine PO (4) DVT prophylaxis Current Visit: Yes Status: Acute Plan to address problem: On Lovenox already
[2016-12-01] MEDS: LOVENOX SUB-Q SCH (21:38)
[2016-12-01] MEDS: DESYREL PO SCH (21:39)
[2016-12-01] MEDS: ZOCOR PO SCH (21:39)
[2016-12-01] MEDS: BENADRYL PO PRN (21:40)
[2016-12-01] MEDS: D5NS 1,000 ML IV SCH (21:40)
[2016-12-01] MEDS ORDERED: ZOCOR PO SCH (22:00)
[2016-12-01] MEDS: COLACE PO SCH (22:46)
[2016-12-02] MEDS: DILAUDID PO PRN ×2 (01:53→13:39)
[2016-12-02] MEDS: BENADRYL PO PRN ×3 (01:53→13:58)
[2016-12-02 09:06] LABS: Basophils % (Auto) 0.7 % (0.0-1.8); Eosinophils % (Auto) 2.1 % (0.0-4.3); Hematocrit 35.9 % (30.3-42.9); Hemoglobin 11.6 gm/dl (10.1-14.3); Mean Corpuscular HGB Conc 32 % (30-34); Mean Corpuscular Hemoglobin 28 pg (28-32); Mean Corpuscular Volume 86 fl (79-97); Platelet Count 265 K/mm3 (140-440); Red Cell Distribution Width 14.4 % (13.2-15.2); White Blood Count 5.9 K/mm3 (4.5-11.0)
[2016-12-02 09:17] LABS: Alanine Aminotransferase 13 units/L (7-56); Albumin 3.6 g/dL (3.9-5); Albumin/Globulin Ratio 0.9 %; Alkaline Phosphatase 87 units/L (35-129); Anion Gap 17 mmol/L; Blood Urea Nitrogen 8 mg/dL (7-17); Calcium 8.9 mg/dL (8.4-10.2); Carbon Dioxide 24 mmol/L (22-30); Chloride 99.8 mmol/L (98-107); Cholesterol 221 mg/dL (50-199); Glucose 103 mg/dL (65-100); HDL Cholesterol 50 mg/dL (40-59); LDL Cholesterol,Direct 145 mg/dL (50-130); Potassium 4.6 mmol/L (3.6-5.0); Sodium 136 mmol/L (137-145); Total Protein 7.6 g/dL (6.3-8.2); Triglycerides 131 mg/dL (2-149)
[2016-12-02] MEDS: PROTONIX PO SCH (09:22)
[2016-12-02] MEDS: LOVENOX SUB-Q SCH ×2 (09:22→22:29)
[2016-12-02] MEDS: COLACE PO SCH (09:22)
--- NOTE | 2016-12-02 09:57 | Consultation ---
History of Present Illness - Reason for Consult Consult date: 12/02/16 stroke - History of Present Illness thanks for consult will review all imaging studies and plan further w/u advise medical therapy for stroke statin / aspirin / HTN control Medications and Allergies Allergies Allergy/AdvReac Type Severity Reaction Status Date / Time acetaminophen [From Tylenol] Allergy Unknown Verified 07/07/15 16:25 blue dye Allergy Unknown Verified 07/07/15 16:25 hydrocodone bitartrate Allergy Unknown Verified 07/07/15 16:25 [From Lortab] NSAIDS (Non-Steroidal Allergy Unknown Verified 07/07/15 16:25 Anti-Inflamma oxycodone HCl [From Percocet] Allergy Unknown Verified 07/07/15 16:25 shellfish derived Allergy Unknown Verified 07/07/15 16:25 tramadol Allergy Unknown Verified 07/07/15 16:25 tramadol HCl [From Ultram] Allergy Unknown Verified 07/07/15 16:25 Home Medications Medication Instructions Recorded Confirmed Last Taken Type Esomeprazole Magnesium [NexIUM] 40 mg PO DAILY 11/02/14 12/01/16 11/30/16 History Hydromorphone HCl [Dilaudid] 4 mg PO Q6H PRN 11/02/14 12/01/16 11/12/16 History Morphine [Morphine TAB] 30 mg PO Q4H PRN 11/02/14 12/01/16 11/12/16 History diphenhydrAMINE [Benadryl CAP] 50 mg PO Q4H PRN 11/02/14 12/01/16 11/12/16 History traZODone [Desyrel] 50 mg PO QHS 11/02/14 12/01/16 11/30/16 History Docusate Sodium [Colace CAP] 100 mg PO DAILY 11/14/16 12/01/16 11/30/16 History Enoxaparin [Lovenox] 1 each SQ BID 11/14/16 12/01/16 11/30/16 History Morphine [Morphine TAB] 15 mg PO Q4H 11/14/16 12/01/16 11/12/16 History Simvastatin [Zocor TAB] 20 mg PO QHS #30 tablet 11/16/16 12/01/16 11/30/16 Rx Active Meds: Active Medications Acetaminophen (Tylenol) 650 mg PO Q4H PRN PRN Reason: Pain MILD(1-3)/Fever >100.5/CASTRO Bisacodyl (Dulcolax) 10 mg [place] QDAY PRN PRN Reason: Constipation unrelieved by MOM Diphenhydramine HCl (Benadryl) 25 mg IV Q4H PRN PRN Reason: Itching Diphenhydramine HCl (Benadryl) 50 mg PO Q4H PRN PRN Reason: Pain Last Admin: 12/02/16 05:50 Dose: 50 mg Docusate Sodium (Colace) 100 mg PO DAILY [facility] Last Admin: 12/02/16 09:22 Dose: 100 mg Enoxaparin Sodium (Lovenox) 100 mg SUB-Q BID [facility] Last Admin: 12/02/16 09:22 Dose: 100 mg Hydromorphone HCl (Dilaudid) 4 mg PO Q6H PRN PRN Reason: Pain Last Admin: 12/02/16 01:53 Dose: 4 mg Dextrose/Sodium Chloride (D5ns) 1,000 mls @ 75 mls/hr IV DIRECT [facility] Last Admin: 12/01/16 21:40 Dose: 75 mls/hr Magnesium Hydroxide (Milk Of Magnesia) 30 ml PO Q4H PRN PRN Reason: Constipation Morphine Sulfate (Morphine) 15 mg PO Q4H PRN PRN Reason: Pain , Severe (7-10) Last Admin: 12/01/16 21:39 Dose: 15 mg Ondansetron HCl (Zofran) 4 mg IV Q8H PRN PRN Reason: N/V unrelieved by Reglan Pantoprazole Sodium (Protonix) 40 mg PO DAILY [facility] Last Admin: 12/02/16 09:22 Dose: 40 mg Simvastatin (Zocor) 20 mg PO QHS [facility] Last Admin: 12/01/16 21:39 Dose: 20 mg Sodium Chloride (Sodium Chloride Flush Syringe 10 Ml) 10 ml IV PRN PRN PRN Reason: LINE FLUSH Trazodone HCl (Desyrel) 50 mg PO QHS [facility] Last Admin: 12/01/16 21:39 Dose: 50 mg Exam - Constitutional Vitals: Temp Pulse Resp BP Pulse Ox 98.4 F 96 H 20 152/91 99 12/02/16 08:00 12/02/16 08:00 12/02/16 08:00 12/02/16 08:00 12/02/16 08:00 Results - Labs CBC & Chem 7: 12/02/16 08:37 12/02/16 08:37 Labs: Abnormal lab results 12/02/16 12/02/16 Range/Units 08:37 08:37 Lymph % (Auto) 50.3 H (13.4-35.0) % Sodium 136 L (137-145) mmol/L Glucose 103 H (65-100) mg/dL Albumin 3.6 L (3.9-5) g/dL Cholesterol 221 H (50-199) mg/dL LDL Cholesterol Direct 145 H (50-130) mg/dL
[2016-12-02] MEDS ORDERED: LOVENOX SUB-Q SCH ×2 (10:00)
--- NOTE | 2016-12-02 11:04 | Magnetic Resonance Report ---
MRI scan of brain: History: Stroke. Technique: Multiplanar, multisequence images were obtained without contrast injection. Findings: No evidence of restricted diffusion. Ventricles are normal in size and midline in location. No evidence of acute ischemia, hemorrhage or mass. No extra-axial fluid collection. Normal brainstem and cerebellum. Normal sinuses and mastoid air cells. Impression No acute intracranial abnormality.
--- NOTE | 2016-12-02 11:05 | Magnetic Resonance Report ---
MRA of brain with 3-D image post processing: History: Stroke. Findings: The vessels of [place] are widely patent. No stenosis occlusion dissection or aneurysm. Codominant vertebral arteries with normal basilar artery. Normal posterior cerebral arteries. Hypoplastic communicating arteries. Impression: No stenoses occlusion or aneurysm.
--- NOTE | 2016-12-02 11:39 | Progress Note ---
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 Case management Possible discharge in 1-2 days if stable Plan of care discussed with the patient as well as her nurse History Interval history: Patient seen and evaluated medical records reviewed No new events reported by the nursing staff Patient complaints of right upper extremity pain Vital signs reviewed Hospitalist Physical - Constitutional Vitals: Temp Pulse Resp BP Pulse Ox 98.4 F 96 H 20 152/91 99 12/02/16 08:00 12/02/16 08:00 12/02/16 08:00 12/02/16 08:00 12/02/16 10:00 General appearance: Present: no acute distress, well-nourished - EENT Eyes: Present: PERRL, EOM intact - Neck Neck: Present: supple, normal ROM - Respiratory Respiratory effort: normal Respiratory: negative: rales, rhonchi, wheezing - Cardiovascular Rhythm: regular Heart Sounds: Present: S1 & S2 - Extremities Extremities: no ischemia, No edema Peripheral Pulses: within normal limits - Abdominal General gastrointestinal: soft, non-tender, non-distended, normal bowel sounds - Psychiatric Psychiatric: appropriate mood/affect, cooperative - Neurologic Neurologic: CNII-XII intact, moves all extremities Results - Labs CBC & Chem 7: 12/02/16 08:37 12/02/16 08:37 Labs: Laboratory Last Values WBC 5.9 K/mm3 (4.5-11.0) 12/02/16 08:37 RBC 4.20 M/mm3 (3.65-5.03) 12/02/16 08:37 Hgb 11.6 gm/dl (10.1-14.3) 12/02/16 08:37 Hct 35.9 % (30.3-42.9) 12/02/16 08:37 MCV 86 fl (79-97) 12/02/16 08:37 MCH 28 pg (28-32) 12/02/16 08:37 MCHC 32 % (30-34) 12/02/16 08:37 RDW 14.4 % (13.2-15.2) 12/02/16 08:37 Plt Count 265 K/mm3 (140-440) 12/02/16 08:37 Lymph % (Auto) 50.3 % (13.4-35.0) H 12/02/16 08:37 [place] % (Auto) 5.8 % (0.0-7.3) 12/02/16 08:37 Eos % (Auto) 2.1 % (0.0-4.3) 12/02/16 08:37 Baso % (Auto) 0.7 % (0.0-1.8) 12/02/16 08:37 Lymph # 3.0 K/mm3 (1.2-5.4) 12/02/16 08:37 [place] # 0.3 K/mm3 (0.0-0.8) 12/02/16 08:37 Eos # 0.1 K/mm3 (0.0-0.4) 12/02/16 08:37 Baso # 0.0 K/mm3 (0.0-0.1) 12/02/16 08:37 Seg Neutrophils % 41.1 % (40.0-70.0) 12/02/16 08:37 Seg Neutrophils # 2.4 K/mm3 (1.8-7.7) 12/02/16 08:37 PT 12.9 Sec. (12.2-14.9) 12/01/16 07:48 INR 0.98 (0.87-1.13) 12/01/16 07:48 APTT 28.0 Sec. (24.2-36.6) 12/01/16 07:48 Thrombin Time 15.9 Sec. (15.1-19.6) 12/01/16 07:48 Sodium 136 mmol/L (137-145) L 12/02/16 08:37 Potassium 4.6 mmol/L (3.6-5.0) 12/02/16 08:37 Chloride 99.8 mmol/L (98-107) 12/02/16 08:37 Carbon Dioxide 24 mmol/L (22-30) 12/02/16 08:37 Anion Gap 17 mmol/L 12/02/16 08:37 BUN 8 mg/dL (7-17) 12/02/16 08:37 Creatinine 0.8 mg/dL (0.7-1.2) 12/02/16 08:37 Estimated GFR > 60 ml/min 12/02/16 08:37 BUN/Creatinine Ratio 10.00 % 12/02/16 08:37 Glucose 103 mg/dL (65-100) H 12/02/16 08:37 Hemoglobin A1c 5.7 % (4-6) 12/01/16 07:48 Calcium 8.9 mg/dL (8.4-10.2) 12/02/16 08:37 Total Bilirubin 0.60 mg/dL (0.1-1.2) 12/02/16 08:37 AST 19 units/L (5-40) 12/02/16 08:37 ALT 13 units/L (7-56) 12/02/16 08:37 Alkaline Phosphatase 87 units/L (35-129) 12/02/16 08:37 Total Creatine Kinase 130 units/L (30-135) 12/01/16 07:48 Troponin T < 0.010 ng/mL (0.00-0.029) 12/01/16 07:48 Total Protein 7.6 g/dL (6.3-8.2) 12/02/16 08:37 Albumin 3.6 g/dL (3.9-5) L 12/02/16 08:37 Albumin/Globulin Ratio 0.9 % 12/02/16 08:37 Triglycerides 131 mg/dL (2-149) 12/02/16 08:37 Cholesterol 221 mg/dL (50-199) H 12/02/16 08:37 LDL Cholesterol Direct 145 mg/dL (50-130) H 12/02/16 08:37 HDL Cholesterol 50 mg/dL (40-59) 12/02/16 08:37 Cholesterol/HDL Ratio 4.42 % 12/02/16 08:37 HCG, Qual Negative (Negative) 12/01/16 07:48
[2016-12-02] MEDS: D5NS 1,000 ML IV SCH (13:40)
[2016-12-02] MEDS ORDERED: BENADRYL PO PRN (15:20)
[2016-12-02] MEDS ORDERED: DILAUDID PO PRN (15:20)
--- NOTE | 2016-12-02 21:44 | Consultation ---
History of Present Illness - Reason for Consult Consult date: 12/02/16 arm pain - History of Present Illness interesting that the major issue is the intense right arm pain this is atypical for stropke but can be seen in MS PAIN SINCE THE mri IS NEGATIVE LJ ORDER mri OF THE cSPINE THERE IS ARM PAIN OF INTENSE TYPE Medications and Allergies Allergies Allergy/AdvReac Type Severity Reaction Status Date / Time acetaminophen [From Tylenol] Allergy Unknown Verified 07/07/15 16:25 blue dye Allergy Unknown Verified 07/07/15 16:25 hydrocodone bitartrate Allergy Unknown Verified 07/07/15 16:25 [From Lortab] NSAIDS (Non-Steroidal Allergy Unknown Verified 07/07/15 16:25 Anti-Inflamma oxycodone HCl [From Percocet] Allergy Unknown Verified 07/07/15 16:25 shellfish derived Allergy Unknown Verified 07/07/15 16:25 tramadol Allergy Unknown Verified 07/07/15 16:25 tramadol HCl [From Ultram] Allergy Unknown Verified 07/07/15 16:25 Home Medications Medication Instructions Recorded Confirmed Last Taken Type Esomeprazole Magnesium [NexIUM] 40 mg PO DAILY 11/02/14 12/01/16 11/30/16 History Hydromorphone HCl [Dilaudid] 4 mg PO Q6H PRN 11/02/14 12/01/16 11/12/16 History Morphine [Morphine TAB] 30 mg PO Q4H PRN 11/02/14 12/01/16 11/12/16 History diphenhydrAMINE [Benadryl CAP] 50 mg PO Q4H PRN 11/02/14 12/01/16 11/12/16 History traZODone [Desyrel] 50 mg PO QHS 11/02/14 12/01/16 11/30/16 History Docusate Sodium [Colace CAP] 100 mg PO DAILY 11/14/16 12/01/16 11/30/16 History Enoxaparin [Lovenox] 1 each SQ BID 11/14/16 12/01/16 11/30/16 History Morphine [Morphine TAB] 15 mg PO Q4H 11/14/16 12/01/16 11/12/16 History Simvastatin [Zocor TAB] 20 mg PO QHS #30 tablet 11/16/16 12/01/16 11/30/16 Rx Active Meds: Active Medications Acetaminophen (Tylenol) 650 mg PO Q4H PRN PRN Reason: Pain MILD(1-3)/Fever >100.5/CASTRO Bisacodyl (Dulcolax) 10 mg [place] QDAY PRN PRN Reason: Constipation unrelieved by MOM Diphenhydramine HCl (Benadryl) 50 mg PO Q8H PRN PRN Reason: Pain Docusate Sodium (Colace) 100 mg PO DAILY [facility] Last Admin: 12/02/16 09:22 Dose: 100 mg Enoxaparin Sodium (Lovenox) 100 mg SUB-Q BID [facility] Last Admin: 12/02/16 09:22 Dose: 100 mg Hydromorphone HCl (Dilaudid) 2 mg PO Q6H PRN PRN Reason: Pain Magnesium Hydroxide (Milk Of Magnesia) 30 ml PO Q4H PRN PRN Reason: Constipation Morphine Sulfate (Morphine) 15 mg PO Q4H PRN PRN Reason: Pain , Severe (7-10) Last Admin: 12/01/16 21:39 Dose: 15 mg Ondansetron HCl (Zofran) 4 mg IV Q8H PRN PRN Reason: N/V unrelieved by Reglan Pantoprazole Sodium (Protonix) 40 mg PO DAILY [facility] Last Admin: 12/02/16 09:22 Dose: 40 mg Simvastatin (Zocor) 20 mg PO QHS [facility] Last Admin: 12/01/16 21:39 Dose: 20 mg Sodium Chloride (Sodium Chloride Flush Syringe 10 Ml) 10 ml IV PRN PRN PRN Reason: LINE FLUSH Trazodone HCl (Desyrel) 50 mg PO QHS [facility] Last Admin: 12/01/16 21:39 Dose: 50 mg Exam - Constitutional Vitals: Temp Pulse Resp BP Pulse Ox 98 F 87 18 120/84 99 12/02/16 16:00 12/02/16 16:00 12/02/16 16:00 12/02/16 16:00 12/02/16 10:00 Results - Labs CBC & Chem 7: 12/02/16 08:37 12/02/16 08:37 Labs: Abnormal lab results 12/02/16 12/02/16 12/02/16 Range/Units 08:37 08:37 12:16 Lymph % (Auto) 50.3 H (13.4-35.0) % Sodium 136 L (137-145) mmol/L Glucose 103 H (65-100) mg/dL POC Glucose 55 L (70-105) Albumin 3.6 L (3.9-5) g/dL Cholesterol 221 H (50-199) mg/dL LDL Cholesterol Direct 145 H (50-130) mg/dL
[2016-12-02] MEDS: DESYREL PO SCH (22:28)
[2016-12-02] MEDS: ZOCOR PO SCH (22:29)
[2016-12-03 08:16] VITALS: BP 119/88
--- NOTE | 2016-12-03 09:23 | Discharge Summary ---
Providers - Providers Date of Admission: 12/01/16 13:17 Date of discharge: 12/03/16 Attending physician: KESHIA ALBARRAN 12/01/16 21:03 Consult to Physician [CONS] Routine Consulting Provider: BISMARK COX Reason For Exam: Rt Monoplegia Place consult to:: dr. cox Notified:: answering service Phone number called:: Was contact made?: Yes If yes, spoke with:: jin Time called:: 07:55 12/01/16 21:10 Occupational Therapy Evaluate and Treat [CONS] Routine Comment: Reason For Exam: Neuro deficits Physical Therapy Evaluation and Treat [CONS] Routine Comment: Reason For Exam: Neuro deficits Primary care physician: [employer] Hospitalization Condition: Stable Hospital course: Assessment and plan: --Right upper extremity weakness Neuro workup is negative, patient complains of swelling and pain Check venous Doppler to rule out DVT --Hypercoagulable state On chronic anticoagulation with full dose Lovenox every 12 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 Case management Disposition: DC-01 TO HOME OR SELFCARE Time spent for discharge: 31 min Exam - Constitutional Vitals: Temp Pulse Resp BP Pulse Ox 97.9 F 82 20 119/88 100 12/03/16 08:00 12/03/16 08:00 12/03/16 08:00 12/03/16 08:00 12/03/16 08:00 Plan Activity: advance as tolerated Diet: low cholesterol Additional Instructions: If you have recurrent episodes of right arm weakness, contact Michelle, need to see neurology for further evaluation and management Follow up with: MICHELINE MARTINEZ MD [Primary Care Provider] - 3-5 Days BISMARK COX MD [Staff Physician] - 7 Days
[2016-12-03] MEDS: COLACE PO SCH (11:59)
[2016-12-03] MEDS: LOVENOX SUB-Q SCH (11:59)
[2016-12-03] MEDS: PROTONIX PO SCH (11:59)
--- NOTE | 2016-12-05 15:47 | Vascular Lab Report ---
CAROTID DUPLEX STUDY: RIGHT PSVEDV CCA PROX:7926 CCA DIST:8028 ICA PROX:6123 ICA MID:[id number] ICA DIST:8632 ECA: 95 VERT: 57 25 LEFT PSVEDV CCA PROX:9927 CCA DIST:6417 ICA PROX:4819 ICA MID:[id number] ICA DIST:8540 ECA: 60 VERT: 55 22 REASON FOR EXAM: [place]. COMMENTS ON THE RIGHT: Doppler frequency analysis is consistent with 16 to 49 percent diameter reduction of the internal carotid artery. Minimal amount of plaque is seen. The common carotid artery is patent. The external carotid artery is patent. The vertebral artery has antegrade flow. COMMENTS ON THE LEFT: Doppler frequency analysis is consistent with 16 to 49 percent diameter reduction of the internal carotid artery. Minimal amount of plaque is seen. The common carotid artery is patent. The external carotid artery is patent. The vertebral artery has antegrade flow. IMPRESSION: Less than 50% diameter reduction in the internal carotid arteries bilaterally. Consider repeat carotid artery duplex in 12 months.
== END 2016-12-03 14:30 | disposition home or self-care (01) | DRG 556 ==
LOC: ED 05:00 → 3A 13:17
PROVIDERS: ADMIT Internal Medicine; ATTEND Internal Medicine
DX: M79.1 Myalgia (principal); D68.59 Other primary thrombophilia; G89.4 Chronic pain syndrome; E66.01 Morbid (severe) obesity due to excess calories; I10 Essential (primary) hypertension; G62.9 Polyneuropathy, unspecified; I25.2 Old myocardial infarction; Z86.73 Personal history of transient ischemic attack (TIA), and cerebral infarction without residual deficits; Z79.899 Other long term (current) drug therapy; Z88.8 Allergy status to other drugs, medicaments and biological substances; Z91.041 Radiographic dye allergy status; Z88.6 Allergy status to analgesic agent; Z91.013 Allergy to seafood; Z86.711 Personal history of pulmonary embolism; Z79.01 Long term (current) use of anticoagulants; Z98.51 Tubal ligation status; Z68.39 Body mass index [BMI] 39.0-39.9, adult
CPT/HCPCS: 36415; 70450; 70544; 70551; 80048; 80053; 80061; 82550; 82962; 83036; 84484; 84703; 85025; 85610; 85670; 85730; 93005; 93010; 93306; 93880; 96374; 96375; 96376; J1170; J1200; J1650; J2270; J2405; J2765; J7042

== ENCOUNTER 2016-12-19 17:40 | Emergency (ER) | payer SELFPAY ==
[2016-12-19 17:57] VITALS: BP 143/92
--- NOTE | 2016-12-19 17:57 | Emergency Department Report ---
Stated Complaint: HBP/LBS/SOB/CHEST PAINS Time Seen by Provider: 12/19/16 17:51 - HPI History of Present Illness: PT c/o chest pain that started this morning PT also states that some times her blood sugar will drop. - PT states today her bg went down to 40 - ROS Review of Systems: + cp + sob + htn + hypoglycemia - Exam Physical Exam: PT looks well, non toxic. lungs diminished snow MSE screening note: Focused history and physical exam performed. Due to findings the following was ordered: ekg, labs, xr ED Disposition for MSE Condition: Stable
[2016-12-19 18:36] LABS: Basophils % (Auto) 0.9 % (0.0-1.8); Eosinophils % (Auto) 1.5 % (0.0-4.3); Hematocrit 34.7 % (30.3-42.9); Hemoglobin 11.1 gm/dl (10.1-14.3); Mean Corpuscular HGB Conc 32 % (30-34); Mean Corpuscular Hemoglobin 28 pg (28-32); Mean Corpuscular Volume 86 fl (79-97); Platelet Count 290 K/mm3 (140-440); Red Blood Count 4.04 M/mm3 (3.65-5.03); Red Cell Distribution Width 13.8 % (13.2-15.2); White Blood Count 6.8 K/mm3 (4.5-11.0)
[2016-12-19 18:49] LABS: INR 0.99 (0.87-1.13)
[2016-12-19 18:50] LABS: Partial Thromboplastin Time 29.7 Sec. (24.2-36.6)
[2016-12-19 18:57] LABS: Alanine Aminotransferase 13 units/L (7-56); Albumin 3.7 g/dL (3.9-5); Albumin/Globulin Ratio 0.9 %; Alkaline Phosphatase 87 units/L (35-129); Anion Gap 16 mmol/L; Blood Urea Nitrogen 8 mg/dL (7-17); Calcium 8.9 mg/dL (8.4-10.2); Carbon Dioxide 27 mmol/L (22-30); Chloride 102.2 mmol/L (98-107); Glucose 79 mg/dL (65-100); Lipase 11 units/L (13-60); Potassium 3.9 mmol/L (3.6-5.0); Sodium 141 mmol/L (137-145); Total Protein 7.6 g/dL (6.3-8.2)
--- NOTE | 2016-12-20 07:33 | XRay Report ---
CHEST 2 VIEWS INDICATION: Chest pain for one day. Hysterectomy 5 months ago. History of high blood pressure and PE. COMPARISON: 11/14/2016. FINDINGS: PA and lateral chest radiographs demonstrate normal cardiomediastinal silhouette. Clear lungs. Stable right axillary surgical clips. Mild mid thoracic spine degenerative endplate spurring. CONCLUSION: No acute disease in the chest, stable. Thank you for the opportunity to participate in this patient's care.
== END 2016-12-19 20:35 | disposition left against medical advice (07) ==
LOC: ED 17:40
DX: R07.89 Other chest pain (principal); Z53.21 Procedure and treatment not carried out due to patient leaving prior to being seen by health care provider
CPT/HCPCS: 36415; 71020; 80053; 82962; 83690; 83880; 84484; 85025; 85610; 85730; 93005; 93010

== ENCOUNTER 2017-02-06 16:53 | Emergency (ER) | payer SELFPAY ==
[2017-02-06 18:09] LABS: Anion Gap 18 mmol/L; BUN/Creatinine Ratio 15; Blood Urea Nitrogen 12 mg/dL (7-17); Calcium 9.1 mg/dL (8.4-10.2); Carbon Dioxide 21 mmol/L (22-30); Chloride 101.1 mmol/L (98-107); Glucose 87 mg/dL (65-100); Potassium 4.1 mmol/L (3.6-5.0); Sodium 136 mmol/L (137-145)
[2017-02-06 18:10] LABS: INR 1.08 (0.87-1.13); Partial Thromboplastin Time 28.7 Sec. (24.2-36.6)
[2017-02-06 22:26] LABS: Bilirubin,Urine NEG (Negative); Blood,Urine NEG (Negative); Ketones,Urine NEG (Negative); Leukocyte Esterase,Urine SM (Negative); Mucus,Urine 3+ /HPF; Nitrite,Urine POS (Negative); Protein,Urine <15 mg/dL mg/dL (Negative)
--- NOTE | 2017-02-07 00:46 | Emergency Department Report ---
HPI - General Chief Complaint: Nausea/Vomiting/Diarrhea Time Seen by Provider: 02/07/17 00:28 - HPI HPI: [place] 25 The patient is a 41-year-old female presenting with a chief complaint of abdominal pain and hematemesis. The patient states yesterday while at work at 05:00 she started "feeling bad" which includes diffuse abdominal pain and hematemesis. The patient states she was sent home from work for her episodes repeated for a total of 3 times. Patient denies melena or bright red blood per rectum. Patient denies any history of fever. Patient says she's had similar episodes in the past but cannot recall what her diagnosis was. Patient currently gives her pain score 10/10 but when she was offered pain medication she declines at this time Location: Gastrointestinal system Duration: Constant since yesterday Quality: Pain Severity: 10/10 Modifying factors: [see above] Context: [see above] Mode of transportation: [not driving] ED Past Medical Hx - Past Medical History Previous Medical History?: Yes Hx Hypertension: Yes Hx CVA: Yes () Hx Heart Attack/AMI: Yes (2011) Hx Pulmonary Embolism: Yes Additional medical history: Protein c and s Def. June PE - Surgical History Past Surgical History?: Yes Additional Surgical History: tubal ligation. endometrial ablation - Family History Family history: no significant - Social History Smoking Status: Never Smoker Substance Use Type: None - Medications Home Medications: Home Medications Medication Instructions Recorded Confirmed Last Taken Type Esomeprazole Magnesium [NexIUM] 40 mg PO DAILY 11/02/14 12/01/16 11/30/16 History Hydromorphone HCl [Dilaudid] 4 mg PO Q6H PRN 11/02/14 12/01/16 11/12/16 History diphenhydrAMINE [Benadryl CAP] 50 mg PO Q4H PRN 11/02/14 12/01/16 11/12/16 History traZODone [Desyrel] 50 mg PO QHS 11/02/14 12/01/16 11/30/16 History Docusate Sodium [Colace CAP] 100 mg PO DAILY 11/14/16 12/01/16 11/30/16 History Enoxaparin [Lovenox] 1 each SQ BID 11/14/16 12/01/16 11/30/16 History Morphine [Morphine TAB] 15 mg PO Q4H 11/14/16 12/01/16 11/12/16 History Simvastatin [Zocor TAB] 20 mg PO QHS #30 tablet 11/16/16 12/01/16 11/30/16 Rx Famotidine [Pepcid] 20 mg PO BID #20 tablet 02/07/17 Unknown Rx Promethazine [Phenergan TAB] 25 mg PO Q6HR PRN #20 tab 02/07/17 Unknown Rx Promethazine [Phenergan] 25 mg [place] Q6HR PRN #5 supp.rect 02/07/17 Unknown Rx traMADol [Ultram] 50 mg PO Q6HR PRN #14 tablet 02/07/17 Unknown Rx ED Review of Systems ROS: Stated complaint: VOMITING BLOOD Other details as noted in HPI Comment: All other systems reviewed and negative Constitutional: denies: chills, fever Eyes: denies: eye pain, eye discharge, vision change ENT: denies: ear pain, throat pain Respiratory: denies: cough, shortness of breath, wheezing Cardiovascular: denies: chest pain, palpitations Endocrine: no symptoms reported Gastrointestinal: abdominal pain, nausea, vomiting, hematemesis. denies: melena , hematochezia Genitourinary: denies: urgency, dysuria, discharge Musculoskeletal: denies: back pain, joint swelling, arthralgia Skin: denies: rash, lesions Neurological: denies: headache, weakness, paresthesias Psychiatric: denies: anxiety, depression Hematological/Lymphatic: denies: easy bleeding, easy bruising Physical Exam - Physical Exam Vital Signs: Vital Signs 02/06/17 02/06/17 02/06/17 17:06 23:18 23:19 Temperature 98.5 F 98.1 F Pulse Rate 87 81 Respiratory 18 16 16 Rate Blood Pressure 138/85 Blood Pressure 132/80 [Left] O2 Sat by Pulse 100 99 99 Oximetry Physical Exam: GENERAL: The patient is well-developed well-nourished female lying on stretcher not appearing to be in acute distress. [] HEENT: Normocephalic. Atraumatic. Extraocular motions are intact. Patient has moist mucous membranes. NECK: Supple. Trachea midline CHEST/LUNGS: Clear to auscultation. There is no respiratory distress noted. HEART/CARDIOVASCULAR: Regular. There is no tachycardia. There is no gallop rub or murmur. ABDOMEN: Abdomen is soft, with diffuse discomfort to palpation. Patient has normal bowel sounds. There is no abdominal distention. SKIN: There is no rash. There is no edema. There is no diaphoresis. NEURO: The patient is awake, alert, and oriented. The patient is cooperative. The patient has normal speech MUSCULOSKELETAL: There is no evidence of acute injury. RECTAL: Guaiac-negative. ED Course Vital Signs 02/06/17 02/06/17 02/06/17 17:06 23:18 23:19 Temperature 98.5 F 98.1 F Pulse Rate 87 81 Respiratory 18 16 16 Rate Blood Pressure 138/85 Blood Pressure 132/80 [Left] O2 Sat by Pulse 100 99 99 Oximetry ED Medical Decision Making - Lab Data Result diagrams: 02/06/17 03:30 02/06/17 17:27 Laboratory Tests 02/06/17 02/06/17 02/06/17 03:30 17:27 17:27 WBC 7.2 RBC 4.27 Hgb 11.7 Hct 36.0 MCV 84 MCH 27 L MCHC 32 RDW 13.0 L Plt Count 266 Lymph % (Auto) Convention [employer] Manager [place] % (Auto) Convention Services Manager Eos % (Auto) Convention Services Manager Baso % (Auto) Convention Services Manager Lymph # Convention Services Manager [place] # Convention Services Manager Eos # Convention Services Manager Baso # Convention Services Manager Seg Neutrophils % Convention Services Manager Seg Neutrophils # Convention Services Manager PT 14.6 INR 1.08 APTT 28.7 Sodium 136 L Potassium 4.1 Chloride 101.1 Carbon Dioxide 21 L Anion Gap 18 BUN 12 Creatinine 0.8 Estimated GFR > 60 BUN/Creatinine Ratio 15 Glucose 87 Calcium 9.1 Urine Color Urine Turbidity Urine pH Ur Specific [place] Urine Protein Urine Glucose (UA) Urine Ketones Urine Blood Urine Nitrite Urine Bilirubin Urine Urobilinogen Ur Leukocyte Esterase Urine WBC (Auto) Urine RBC (Auto) U Epithel Cells (Auto) Urine Mucus 02/06/17 Unknown WBC RBC Hgb Hct MCV MCH MCHC RDW Plt Count Lymph % (Auto) [place] % (Auto) Eos % (Auto) Baso % (Auto) Lymph # [place] # Eos # Baso # Seg Neutrophils % Seg Neutrophils # PT INR APTT Sodium Potassium Chloride Carbon Dioxide Anion Gap BUN Creatinine Estimated GFR BUN/Creatinine Ratio Glucose Calcium Urine Color Yellow Urine Turbidity Clear Urine pH 6.0 Ur Specific [place] 1.021 Urine Protein <15 mg/dl Urine Glucose (UA) Neg Urine Ketones Neg Urine Blood Neg Urine Nitrite Pos Urine Bilirubin Neg Urine Urobilinogen 2.0 Ur Leukocyte Esterase Sm Urine WBC (Auto) 35.0 H Urine RBC (Auto) 4.0 U Epithel Cells (Auto) 3.0 Urine Mucus 3+ - Radiology Data Radiology results: report reviewed (CT abdomen and pelvis), image reviewed (CT abdomen and pelvis) CT abdomen and pelvis (read by radiologist)-no acute process in the abdomen and pelvis - Differential Diagnosis gastritis, peptic ulcer disease, Critical care attestation.: If time is entered above; I have spent that time in minutes in the direct care of this critically ill patient, excluding procedure time. ED Disposition Clinical Impression: Hematemesis, Abdominal pain Disposition: TO HOME OR SELFCARE Is pt being admited?: No Does the pt Need Aspirin: No Condition: Stable Instructions: Acute Nausea and Vomiting (ED) Additional Instructions: Return to the emergency department immediately should you develop worsening symptoms, fever, inability to tolerate food or liquid or any other concerns. Prescriptions: Famotidine [Pepcid] 20 mg PO BID #20 tablet Promethazine [Phenergan TAB] 25 mg PO Q6HR PRN #20 tab PRN Reason: Nausea Promethazine [Phenergan] 25 mg MS Q6HR PRN #5 supp.rect PRN Reason: Vomiting traMADol [Ultram] 50 mg PO Q6HR PRN #14 tablet PRN Reason: Pain Referrals: FABIANA POON MD [Staff Physician] - 3-5 Days (Dr. Poon is a primary physician. Please follow up with him to be established as a patient) LEANNA BRAN MD [Staff Physician] - [facility] (Dr. Bran is a belling machine operator. Please follow-up with him for further evaluation) Time of Disposition: 03:50
--- NOTE | 2017-02-07 01:48 | Cat Scan Report ---
FINAL REPORT EXAM: CT ABDOMEN PELVIS WO CON HISTORY: diffuse abdominal pain, hematemesis TECHNIQUE: Routine axial imaging was obtained of the abdomen and pelvis without oral or IV contrast. FINDINGS: The lung bases are clear. Pleural fluid is not seen. The liver, gallbladder, pancreas, spleen, and adrenal glands appear normal. The kidneys reveal an 11 millimeter low-density cortical lesion left kidney posteriorly most likely representing a small cortical cyst. There is no evidence of renal stones or hydronephrosis. The bowel loops are normal in caliber and course. The appendix appears normal. There are 2 small ventral midline anterior abdominal hernias containing omental fat above the umbilicus. One measures up to 2 cm in diameter. In the pelvis the uterus has been removed. The bladder appears normal. There is no evidence of free fluid or adenopathy. The skeletal structures appear well maintained IMPRESSION: No acute process in the abdomen and pelvis. Two small ventral anterior midline abdominal hernias containing omental fat. Small cortical cyst in left kidney. Hysterectomy.
[2017-02-07 02:02] VITALS: BP 132/84
[2017-02-07 03:40] LABS: Hemoglobin 11.7 gm/dl (10.1-14.3); Mean Corpuscular HGB Conc 32 % (30-34); Mean Corpuscular Hemoglobin 27 pg (28-32); Mean Corpuscular Volume 84 fl (79-97); Platelet Count 266 K/mm3 (140-440); Red Blood Count 4.27 M/mm3 (3.65-5.03); White Blood Count 7.2 K/mm3 (4.5-11.0)
== END 2017-02-07 04:01 | disposition home or self-care (01) ==
LOC: ED 16:53
DX: R10.84 Generalized abdominal pain (principal); K92.0 Hematemesis; I10 Essential (primary) hypertension; I25.2 Old myocardial infarction; I26.99 Other pulmonary embolism without acute cor pulmonale; I63.9 Cerebral infarction, unspecified
CPT/HCPCS: 36415; 74176; 80048; 81001; 82271; 82962; 85025; 85610; 85730

== ENCOUNTER 2017-05-01 10:19 | Emergency (ER) | payer SELFPAY ==
[2017-05-01 12:33] LABS: Basophils # (Auto) 0.1 K/mm3 (0.0-0.1); Basophils % (Auto) 1.3 % (0.0-1.8); Eosinophils # (Auto) 0.1 K/mm3 (0.0-0.4); Eosinophils % (Auto) 2.5 % (0.0-4.3); Hematocrit 35.5 % (30.3-42.9); Hemoglobin 11.7 gm/dl (10.1-14.3); Lymphocytes % (Auto) 52.3 % (13.4-35.0); Mean Corpuscular HGB Conc 33 % (30-34); Mean Corpuscular Hemoglobin 28 pg (28-32); Mean Corpuscular Volume 84 fl (79-97); Monocytes # (Auto) 0.4 K/mm3 (0.0-0.8); Monocytes % (Auto) 7.1 % (0.0-7.3); Platelet Count 237 K/mm3 (140-440); Red Blood Count 4.23 M/mm3 (3.65-5.03)
[2017-05-01 12:50] LABS: Bilirubin,Urine NEG (Negative); Blood,Urine NEG (Negative); Color,Urine Yellow (Yellow); Mucus,Urine FEW /HPF; Nitrite,Urine POS (Negative); Protein,Urine <15 mg/dL mg/dL (Negative); Urobilinogen,Urine < 2.0 mg/dL (<2.0)
[2017-05-01 12:54] LABS: Alanine Aminotransferase 17 units/L (7-56); Albumin 3.8 g/dL (3.9-5); BUN/Creatinine Ratio 11; Blood Urea Nitrogen 11 mg/dL (7-17); Calcium 9.4 mg/dL (8.4-10.2); Hemolysis Index 57
[2017-05-02] MEDS ORDERED: ZOFRAN ODT PO ONE (00:17)
--- NOTE | 2017-05-02 00:17 | Emergency Department Report ---
ED General Adult HPI - General Chief complaint: Nausea/Vomiting/Diarrhea Stated complaint: VOMITING, FEVER, SHORT OF BREATH Time Seen by Provider: 05/02/17 00:08 Source: patient, RN notes reviewed, old records reviewed Mode of arrival: Ambulatory Limitations: No Limitations - History of Present Illness Initial comments: This is a 41-year-old female whom I have evaluated in the past. She has a history of protein C and protein S deficiency, history of stroke, and is currently on lifelong anticoagulation. Patient presents to the ER with 4 days of body aches, myalgias, arthralgias, fevers, chills, malaise and weakness. She describes 2 episodes of nonbloody, nonbilious emesis. She denies severe headache, chest pain, severe shortness of breath, , and abdominal pain. She denies urinary symptoms and irritative process obstructive urinary symptoms and she denies bright red blood per rectum The patient does endorse a positive dry cough. -: Gradual, days(s) Location: back, left, right, upper extremity, lower extremity Severity scale (0 -10): 10 Quality: aching Consistency: intermittent Improves with: rest Worsens with: movement Associated Symptoms: cough, fever/chills, loss of appetite, malaise, weakness. denies: confusion, chest pain - Related Data Home Medications Medication Instructions Recorded Confirmed Last Taken Esomeprazole Magnesium [NexIUM] 40 mg PO DAILY 11/02/14 05/02/17 11/30/16 Hydromorphone HCl [Dilaudid] 4 mg PO Q6H PRN 11/02/14 05/02/17 11/12/16 diphenhydrAMINE [Benadryl CAP] 50 mg PO Q4H PRN 11/02/14 05/02/17 11/12/16 traZODone [Desyrel] 50 mg PO QHS 11/02/14 05/02/17 11/30/16 Docusate Sodium [Colace CAP] 100 mg PO DAILY 11/14/16 05/02/17 11/30/16 Enoxaparin [Lovenox] 1 each SQ BID 11/14/16 05/02/17 11/30/16 Morphine [Morphine TAB] 15 mg PO Q4H 11/14/16 05/02/17 11/12/16 Previous Rx's Medication Instructions Recorded Last Taken Type Simvastatin [Zocor TAB] 20 mg PO QHS #30 tablet 11/16/16 11/30/16 Rx Famotidine [Pepcid] 20 mg PO BID #20 tablet 02/07/17 Unknown Rx Promethazine [Phenergan TAB] 25 mg PO Q6HR PRN #20 tab 02/07/17 Unknown Rx Promethazine [Phenergan] 25 mg [place] Q6HR PRN #5 supp.rect 02/07/17 Unknown Rx traMADol [Ultram] 50 mg PO Q6HR PRN #14 tablet 02/07/17 Unknown Rx Ondansetron [Zofran Odt] 4 mg PO Q8HR PRN #20 tab.rapdis 05/02/17 Unknown Rx Allergies Allergy/AdvReac Type Severity Reaction Status Date / Time acetaminophen [From Tylenol] Allergy Unknown Verified 07/07/15 16:25 blue dye Allergy Unknown Verified 07/07/15 16:25 hydrocodone bitartrate Allergy Unknown Verified 07/07/15 16:25 [From Lortab] NSAIDS (Non-Steroidal Allergy Unknown Verified 07/07/15 16:25 Anti-Inflamma oxycodone HCl [From Percocet] Allergy Unknown Verified 07/07/15 16:25 shellfish derived Allergy Unknown Verified 07/07/15 16:25 tramadol Allergy Unknown Verified 07/07/15 16:25 tramadol HCl [From Ultram] Allergy Unknown Verified 07/07/15 16:25 ED Review of Systems ROS: Stated complaint: VOMITING, FEVER, SHORT OF BREATH Other details as noted in HPI ED Past Medical Hx - Past Medical History Previous Medical History?: Yes Hx Hypertension: Yes Hx CVA: Yes () Hx Heart Attack/AMI: Yes (2011) Hx Congestive Heart Failure: No Hx Diabetes: No Hx Pulmonary Embolism: Yes Hx Asthma: No Hx COPD: No Hx HIV: No Additional medical history: Protein c and s Def. June PE - Surgical History Past Surgical History?: Yes Additional Surgical History: tubal ligation. endometrial ablation - Social History Smoking Status: Never Smoker Substance Use Type: Prescribed - Medications Home Medications: Home Medications Medication Instructions Recorded Confirmed Last Taken Type Esomeprazole Magnesium [NexIUM] 40 mg PO DAILY 11/02/14 05/02/17 11/30/16 History Hydromorphone HCl [Dilaudid] 4 mg PO Q6H PRN 11/02/14 05/02/17 11/12/16 History diphenhydrAMINE [Benadryl CAP] 50 mg PO Q4H PRN 11/02/14 05/02/17 11/12/16 History traZODone [Desyrel] 50 mg PO QHS 11/02/14 05/02/17 11/30/16 History Docusate Sodium [Colace CAP] 100 mg PO DAILY 11/14/16 05/02/17 11/30/16 History Enoxaparin [Lovenox] 1 each SQ BID 11/14/16 05/02/17 11/30/16 History Morphine [Morphine TAB] 15 mg PO Q4H 11/14/16 05/02/17 11/12/16 History Simvastatin [Zocor TAB] 20 mg PO QHS #30 tablet 11/16/16 05/02/17 11/30/16 Rx Famotidine [Pepcid] 20 mg PO BID #20 tablet 02/07/17 05/02/17 Unknown Rx Promethazine [Phenergan TAB] 25 mg PO Q6HR PRN #20 tab 02/07/17 05/02/17 Unknown Rx Promethazine [Phenergan] 25 mg [place] Q6HR PRN #5 supp.rect 02/07/17 05/02/17 Unknown Rx traMADol [Ultram] 50 mg PO Q6HR PRN #14 tablet 02/07/17 05/02/17 Unknown Rx Ondansetron [Zofran Odt] 4 mg PO Q8HR PRN #20 tab.rapdis 05/02/17 Unknown Rx ED Physical Exam - General Limitations: No Limitations General appearance: alert, in no apparent distress - Head Head exam: Present: atraumatic, normocephalic - Eye Eye exam: Present: normal appearance, EOMI. Absent: nystagmus - ENT ENT exam: Present: normal exam, normal orophraynx, mucous membranes moist, normal external ear exam - Neck Neck exam: Present: normal inspection, full ROM - Respiratory Respiratory exam: Present: normal lung sounds bilaterally. Absent: respiratory distress, wheezes, rales, rhonchi, stridor - Cardiovascular Cardiovascular Exam: Present: regular rate, normal rhythm, normal heart sounds. Absent: systolic murmur, diastolic murmur, rubs, gallop - GI/Abdominal GI/Abdominal exam: Present: soft, normal bowel sounds. Absent: distended, tenderness, guarding, rebound, rigid, pulsatile mass - Extremities Exam Extremities exam: Present: normal inspection, full ROM, normal capillary refill. Absent: tenderness, pedal edema, joint swelling, calf tenderness - Back Exam Back exam: Present: normal inspection, full ROM. Absent: tenderness, CVA tenderness (R), paraspinal tenderness, vertebral tenderness - Neurological Exam Neurological exam: Present: alert, oriented X3, CN II-XII intact, other ( Extraocular movements intact. Tongue midline. No facial droop. Facial sensation intact to light touch in the V1, V2, V3 distribution bilaterally. 5 and 5 strength in 4 extremities.. Sensation is intact to light touch in 4 extremities.). Absent: motor sensory deficit - Psychiatric Psychiatric exam: Present: anxious - Skin Skin exam: Present: warm, dry, intact, normal color. Absent: rash ED Course Vital Signs 05/01/17 05/01/17 05/02/17 11:28 23:00 00:48 Temperature 98.2 F 98.6 F Pulse Rate 85 73 Respiratory 20 18 18 Rate Blood Pressure 149/100 Blood Pressure 153/89 [Left] O2 Sat by Pulse 100 100 Oximetry ED Medical Decision Making - Lab Data Result diagrams: 05/01/17 12:27 05/01/17 12:27 Vital Signs 05/01/17 05/01/17 05/02/17 11:28 23:00 00:48 Temperature 98.2 F 98.6 F Pulse Rate 85 73 Respiratory 20 18 18 Rate Blood Pressure 149/100 Blood Pressure 153/89 [Left] O2 Sat by Pulse 100 100 Oximetry Lab Results 05/01/17 05/01/17 05/01/17 Range/Units 12:27 12:27 Unknown WBC 5.7 (4.5-11.0) K/mm3 RBC 4.23 (3.65-5.03) M/mm3 Hgb 11.7 (10.1-14.3) gm/dl Hct 35.5 (30.3-42.9) % MCV 84 (79-97) fl MCH 28 (28-32) pg MCHC 33 (30-34) % RDW 14.0 (13.2-15.2) % Plt Count 237 (140-440) K/mm3 Lymph % (Auto) 52.3 H (13.4-35.0) % [place] % (Auto) 7.1 (0.0-7.3) % Eos % (Auto) 2.5 (0.0-4.3) % Baso % (Auto) 1.3 (0.0-1.8) % Lymph # 3.0 (1.2-5.4) K/mm3 [place] # 0.4 (0.0-0.8) K/mm3 Eos # 0.1 (0.0-0.4) K/mm3 Baso # 0.1 (0.0-0.1) K/mm3 Seg Neutrophils % 36.8 L (40.0-70.0) % Seg Neutrophils # 2.1 (1.8-7.7) K/mm3 Sodium 139 (137-145) mmol/L Potassium 4.7 (3.6-5.0) mmol/L Chloride 100.0 (98-107) mmol/L Carbon Dioxide 29 (22-30) mmol/L Anion Gap 15 mmol/L BUN 11 (7-17) mg/dL Creatinine 1.0 (0.7-1.2) mg/dL Estimated GFR > 60 ml/min BUN/Creatinine Ratio 11 % Glucose 80 (65-100) mg/dL Calcium 9.4 (8.4-10.2) mg/dL Total Bilirubin 0.40 (0.1-1.2) mg/dL AST 20 (5-40) units/L ALT 17 (7-56) units/L Alkaline Phosphatase 100 (35-129) units/L Total Protein 7.9 (6.3-8.2) g/dL Albumin 3.8 L (3.9-5) g/dL Albumin/Globulin Ratio 0.9 % Urine Color Yellow (Yellow) Urine Turbidity Clear (Clear) Urine pH 5.0 (5.0-7.0) Ur Specific [place] 1.024 (1.003-1.030) Urine Protein <15 mg/dl (Negative) mg/dL Urine Glucose (UA) Neg (Negative) mg/dL Urine Ketones Neg (Negative) mg/dL Urine Blood Neg (Negative) Urine Nitrite Pos (Negative) Urine Bilirubin Neg (Negative) Urine Urobilinogen < 2.0 (<2.0) mg/dL Ur Leukocyte Esterase Neg (Negative) Urine WBC (Auto) 2.0 (0.0-6.0) /HPF Urine RBC (Auto) 1.0 (0.0-6.0) /HPF U Epithel Cells (Auto) 2.0 (0-13.0) /HPF Urine Mucus Few /HPF - Medical Decision Making Differential diagnosis, including but not limited to: Influenza-like illness, urinary tract infection, viral syndrome Assessment and plan: 41-year-old female who has a history and physical that suggests influenza-like illness. She is afebrile with reassuring vital signs. The patient has been observed in the ER for 12 hours without clinical decompensation. She denies irritative urinary symptoms and her pulmonary exam is unremarkable. She is not hypoxic, and she does not have rales, rhonchi or focal pulmonary findings. Therefore do not feel the patient requires a chest x- ray. It is also being patient's wish to not have a chest x-ray. The patient is unfortunately allergic to acetaminophen and NSAIDs, and endorses anaphylaxis to both of these. Patient medicated with Zofran, no active vomiting as noted, patient is not a Tamiflu candidate as symptoms have been present for greater than 72 hours, she will therefore be discharged with supportive care and therapies. She can follow -up with her outpatient primary care doctor or project planner. Critical care attestation.: If time is entered above; I have spent that time in minutes in the direct care of this critically ill patient, excluding procedure time. ED Disposition Clinical Impression: Influenza-like illness Disposition: DC-01 TO HOME OR SELFCARE Is pt being admited?: No Does the pt Need Aspirin: No Condition: Good Instructions: Influenza (ED) Additional Instructions: Continue current outpatient medications. Drink fluids as tolerated. Symptoms likely coming from influenza-like illness. Symptoms may last for a few days to a few weeks. Wash hands before and after handling food. Follow up with a primary care doctor within the next 7-10 days. Return to the ER right away with intractable nausea or vomiting, lethargy, irritability, projectile vomiting, change in mental status, confusion, inability to tolerate liquid feeds, new, worsening or different symptoms. Referrals: PRIMARY CARE, [Primary Care Provider] - 3-5 Days TERRY VILLALOBSO DO [Staff Physician] - 3-5 Days JOÃO MORGAN MD [Staff Physician] - 3-5 Days
[2017-05-02 01:37] VITALS: BP 120/62
== END 2017-05-02 01:37 | disposition home or self-care (01) ==
LOC: ED 10:19
DX: J11.1 Influenza due to unidentified influenza virus with other respiratory manifestations (principal); I10 Essential (primary) hypertension; I25.2 Old myocardial infarction; Z88.8 Allergy status to other drugs, medicaments and biological substances; Z88.6 Allergy status to analgesic agent; Z91.013 Allergy to seafood
CPT/HCPCS: 36415; 80053; 81001; 85025; 99283; Q0162

== ENCOUNTER 2017-08-14 13:27 | Emergency (ER) | payer SELFPAY ==
--- NOTE | 2017-08-14 18:38 | Emergency Department Report ---
Blank Doc - Documentation Documentation: Patient presents to the ER with complaint of hemoptysis. Patient reports that at approximately 11 AM she vomited blood clots. Patient reports a history of protein S and protein C deficiency reports that she is followed at [facility]. Ordering a patient reports that she is currently on Lovenox subcutaneous injections for treatment of the protein S and protein C deficiency. Patient reports history of multiple PEs including blood clots in her stomach. Patient reports abdominal pain. Plan laboratory and radiologic evaluation in the ER.
[2017-08-14 18:42] LABS: Basophils # (Auto) 0.1 K/mm3 (0.0-0.1); Basophils % (Auto) 0.9 % (0.0-1.8); Eosinophils # (Auto) 0.1 K/mm3 (0.0-0.4); Eosinophils % (Auto) 0.9 % (0.0-4.3); Hematocrit 34.3 % (30.3-42.9); Hemoglobin 11.5 gm/dl (10.1-14.3); Lymphocytes # (Auto) 3.3 K/mm3 (1.2-5.4); Lymphocytes % (Auto) 41.4 % (13.4-35.0); Mean Corpuscular HGB Conc 33 % (30-34); Mean Corpuscular Hemoglobin 28 pg (28-32); Mean Corpuscular Volume 84 fl (79-97); Monocytes # (Auto) 0.4 K/mm3 (0.0-0.8); Monocytes % (Auto) 5.4 % (0.0-7.3); Platelet Count 295 K/mm3 (140-440); Red Blood Count 4.11 M/mm3 (3.65-5.03); Red Cell Distribution Width 14.3 % (13.2-15.2)
[2017-08-14 18:51] LABS: INR 0.88 (0.87-1.13); Partial Thromboplastin Time 28.6 Sec. (24.2-36.6)
[2017-08-14 19:02] LABS: Alanine Aminotransferase 15 units/L (7-56); BUN/Creatinine Ratio 14; Blood Urea Nitrogen 11 mg/dL (7-17); Calcium 9.1 mg/dL (8.4-10.2); Hemolysis Index 2; Lipase 12 units/L (13-60)
[2017-08-14 21:38] LABS: Bacteria,Urine 1+ /HPF (Negative); Bilirubin,Urine NEG (Negative); Blood,Urine NEG (Negative); Color,Urine Yellow (Yellow); Mucus,Urine 3+ /HPF; Protein,Urine <15 mg/dL mg/dL (Negative)
[2017-08-14 21:39] LABS: HCG Qualitative,Urine Negative (Negative)
--- NOTE | 2017-08-14 22:13 | XRay Report ---
FINAL REPORT PROCEDURE: XR ABD SERIES W CXR 1V TECHNIQUE: Abdominal series complete, including supine and upright AP views of the abdomen and frontal chest. HISTORY: ABD Pain COMPARISON: No prior studies are available for comparison. FINDINGS: Heart: Normal. Mediastinum/Vessels: Normal. Lungs/Pleural space: Normal. Bowel gas pattern: Intestinal gas is distributed predominantly in nondistended colon and rectum. Mild degree residual stool is identified.. Masses or calcifications: None. Bony structures: No acute osseous abnormality. Other: No free intraperitoneal air. IMPRESSION: Nonspecific intestinal gas pattern.
[2017-08-15] MEDS ORDERED: PROTONIX IV ONE (00:21)
[2017-08-15] MEDS ORDERED: SUBLIMAZE IV ONE (00:21)
[2017-08-15] MEDS ORDERED: ZOFRAN IV ONE (00:21)
--- NOTE | 2017-08-15 00:26 | Emergency Department Report ---
ED Abdominal Pain HPI - General Chief Complaint: Abdominal Pain Stated Complaint: VOMITING Time Seen by Provider: 08/14/17 18:21 Source: patient Mode of arrival: Ambulatory Limitations: No Limitations - History of Present Illness Initial Comments: Patient is 42 years old female with significant past medical history of multiple clots in the lunng And stomach. Patient presented to the ER complaining of epigastric abdominal pain that is started this afternoon, patient stated that she vomited blood clots and she had blood in her urine to. Patient is on Lovenox 100 mg twice a day. She had history of protein S and C deficiency. No active vomiting at this moment. Patient denied any hematochezia or melena. No hemoptysis. MD Complaint: abdominal pain -: Sudden Location: epigastric Radiation: none Migration to: no migration Severity: moderate Quality: sharp Worsens With: nothing - Related Data Home Medications Medication Instructions Recorded Confirmed Last Taken Esomeprazole Magnesium [NexIUM] 40 mg PO DAILY 11/02/14 05/02/17 11/30/16 Hydromorphone HCl [Dilaudid] 4 mg PO Q6H PRN 11/02/14 05/02/17 11/12/16 diphenhydrAMINE [Benadryl CAP] 50 mg PO Q4H PRN 11/02/14 05/02/17 11/12/16 traZODone [Desyrel] 50 mg PO QHS 11/02/14 05/02/17 11/30/16 Docusate Sodium [Colace CAP] 100 mg PO DAILY 11/14/16 05/02/17 11/30/16 Enoxaparin [Lovenox] 1 each SQ BID 11/14/16 05/02/17 11/30/16 Morphine [Morphine TAB] 15 mg PO Q4H 11/14/16 05/02/17 11/12/16 Previous Rx's Medication Instructions Recorded Last Taken Type Simvastatin [Zocor TAB] 20 mg PO QHS #30 tablet 11/16/16 11/30/16 Rx Famotidine [Pepcid] 20 mg PO BID #20 tablet 02/07/17 Unknown Rx Promethazine [Phenergan TAB] 25 mg PO Q6HR PRN #20 tab 02/07/17 Unknown Rx Promethazine [Phenergan] 25 mg [place] Q6HR PRN #5 supp.rect 02/07/17 Unknown Rx traMADol [Ultram] 50 mg PO Q6HR PRN #14 tablet 02/07/17 Unknown Rx Ondansetron [Zofran Odt] 4 mg PO Q8HR PRN #20 tab.rapdis 05/02/17 Unknown Rx Allergies Allergy/AdvReac Type Severity Reaction Status Date / Time acetaminophen [From Tylenol] Allergy Shortness Verified 08/14/17 13:33 of Breath blue dye Allergy Unknown Verified 08/14/17 13:33 hydrocodone bitartrate Allergy Unknown Verified 08/14/17 13:33 [From Lortab] NSAIDS (Non-Steroidal Allergy Unknown Verified 08/14/17 13:33 Anti-Inflamma oxycodone HCl [From Percocet] Allergy Unknown Verified 08/14/17 13:33 shellfish derived Allergy Unknown Verified 08/14/17 13:33 tramadol Allergy Unknown Verified 08/14/17 13:33 tramadol HCl [From Ultram] Allergy Unknown Verified 08/14/17 13:33 iv dye Allergy Itching Uncoded 08/14/17 13:33 ED Review of Systems ROS: Stated complaint: VOMITING Other details as noted in HPI Comment: All other systems reviewed and negative Constitutional: denies: chills, fever Respiratory: denies: cough, shortness of breath, SOB with exertion Cardiovascular: denies: chest pain, palpitations, dyspnea on exertion, orthopnea Gastrointestinal: abdominal pain, vomiting, hematemesis. denies: nausea, diarrhea, constipation, hematochezia Genitourinary: hematuria Musculoskeletal: denies: back pain Neurological: denies: headache, weakness, numbness, paresthesias, confusion ED Past Medical Hx - Past Medical History Hx Hypertension: Yes Hx CVA: Yes (2) Hx Heart Attack/AMI: Yes (2012) Hx Congestive Heart Failure: No Hx Diabetes: No Hx Pulmonary Embolism: Yes Hx Asthma: No Hx COPD: No Hx HIV: No Additional medical history: Protein c and s Def. June PE - Surgical History Additional Surgical History: tubal ligation. endometrial ablation - Social History Smoking Status: Never Smoker Substance Use Type: Prescribed - Medications Home Medications: Home Medications Medication Instructions Recorded Confirmed Last Taken Type Esomeprazole Magnesium [NexIUM] 40 mg PO DAILY 11/02/14 05/02/17 11/30/16 History Hydromorphone HCl [Dilaudid] 4 mg PO Q6H PRN 11/02/14 05/02/17 11/12/16 History diphenhydrAMINE [Benadryl CAP] 50 mg PO Q4H PRN 11/02/14 05/02/17 11/12/16 History traZODone [Desyrel] 50 mg PO QHS 11/02/14 05/02/17 11/30/16 History Docusate Sodium [Colace CAP] 100 mg PO DAILY 11/14/16 05/02/17 11/30/16 History Enoxaparin [Lovenox] 1 each SQ BID 11/14/16 05/02/17 11/30/16 History Morphine [Morphine TAB] 15 mg PO Q4H 11/14/16 05/02/17 11/12/16 History Simvastatin [Zocor TAB] 20 mg PO QHS #30 tablet 11/16/16 05/02/17 11/30/16 Rx Famotidine [Pepcid] 20 mg PO BID #20 tablet 02/07/17 05/02/17 Unknown Rx Promethazine [Phenergan TAB] 25 mg PO Q6HR PRN #20 tab 02/07/17 05/02/17 Unknown Rx Promethazine [Phenergan] 25 mg [place] Q6HR PRN #5 supp.rect 02/07/17 05/02/17 Unknown Rx traMADol [Ultram] 50 mg PO Q6HR PRN #14 tablet 02/07/17 05/02/17 Unknown Rx Ondansetron [Zofran Odt] 4 mg PO Q8HR PRN #20 tab.rapdis 05/02/17 Unknown Rx ED Physical Exam - General Limitations: No Limitations General appearance: alert, in no apparent distress - Head Head exam: Present: atraumatic, normocephalic, normal inspection - Eye Eye exam: Present: normal appearance, PERRL - ENT ENT exam: Present: normal exam, normal orophraynx, mucous membranes moist - Neck Neck exam: Present: normal inspection, full ROM. Absent: tenderness, meningismus, lymphadenopathy, thyromegaly - Respiratory Respiratory exam: Present: normal lung sounds bilaterally. Absent: respiratory distress, wheezes, rales, rhonchi, stridor, chest wall tenderness, accessory muscle use, decreased breath sounds, prolonged expiratory - Cardiovascular Cardiovascular Exam: Present: regular rate, normal rhythm, normal heart sounds - GI/Abdominal GI/Abdominal exam: Present: soft, tenderness, normal bowel sounds. Absent: distended, guarding, rebound, rigid, diminished bowel sounds, organomegaly, mass , bruit, pulsatile mass, hernia - Extremities Exam Extremities exam: Present: normal inspection, full ROM, normal capillary refill - Back Exam Back exam: Present: normal inspection, full ROM. Absent: tenderness, CVA tenderness (R), CVA tenderness (L) - Neurological Exam Neurological exam: Present: alert, oriented X3, CN II-XII intact, normal gait - Skin Skin exam: Present: warm, intact, normal color ED Course Vital Signs 08/14/17 08/14/17 08/14/17 13:33 23:35 23:52 Temperature 98 F Pulse Rate 90 75 Respiratory 18 18 14 Rate Blood Pressure 135/87 Blood Pressure 135/79 [Left] O2 Sat by Pulse 100 98 Oximetry 08/15/17 08/15/17 08/15/17 00:00 00:16 00:28 Temperature Pulse Rate 65 80 Respiratory 21 14 18 Rate Blood Pressure 140/93 140/93 Blood Pressure [Left] O2 Sat by Pulse 100 96 98 Oximetry 08/15/17 08/15/17 08/15/17 00:30 00:46 01:00 Temperature Pulse Rate 64 75 68 Respiratory 20 11 L 13 Rate Blood Pressure 140/93 140/93 140/93 Blood Pressure [Left] O2 Sat by Pulse 99 98 98 Oximetry 08/15/17 08/15/17 08/15/17 01:16 01:30 01:46 Temperature Pulse Rate 67 74 75 Respiratory 20 19 9 L Rate Blood Pressure 140/93 140/93 140/93 Blood Pressure [Left] O2 Sat by Pulse 100 99 100 Oximetry 08/15/17 08/15/17 08/15/17 02:00 02:16 02:30 Temperature Pulse Rate 64 81 68 Respiratory 14 18 17 Rate Blood Pressure 140/93 140/93 140/93 Blood Pressure [Left] O2 Sat by Pulse 98 98 99 Oximetry 08/15/17 02:46 Temperature Pulse Rate 85 Respiratory 20 Rate Blood Pressure 140/93 Blood Pressure [Left] O2 Sat by Pulse 98 Oximetry - Reevaluation(s) Reevaluation #1: 08/15/17 05:55 Patient stated that she is feeling much better. Abdominal pain resolved. I advised the patient to follow up with her primary care physician in the next 2- 3 days. I also advised had to attend to the ER if her symptoms are not improving. ED Medical Decision Making - Lab Data Result diagrams: 08/14/17 18:25 08/14/17 18:25 - Radiology Data Radiology results: report reviewed Referring Physician: CORINE MARSH Patient Name: ANTONIO JORDAN Date of : 1975 Sex: Female Report Date: 2017-08-15 Report Status: Finalized Findings [facility] [address] [place] [address] Cat Scan Report Signed Patient: ANTONIO JORDAN MR#: [id number] : 1975 Acct:[id number] Age/Sex: 42 / F ADM Date: 08/14/17 Loc: ED Attending Dr: Ordering Physician: CORINE MARSH Date of Service: 08/15/17 Procedure(s): CT abdomen pelvis w con Accession Number(s): [id number] cc: CORINE MARSH FINAL REPORT PROCEDURE: CT ABDOMEN PELVIS W CON TECHNIQUE: Computerized axial tomography of the abdomen and pelvis was performed after the IV injection of iodinated nonionic contrast. HISTORY: abdominal pain COMPARISON: 02/07/2017 FINDINGS: Visualized lower thorax: No significant abnormality. Liver: Normal size and attenuation. Spleen: Normal size and attenuation. Gallbladder and biliary system: Normal. Pancreas: Normal. Adrenals: Normal. Kidneys: Both kidneys have normal size. No hydronephrosis. There is a 1 centimeter region of mixed attenuation in the posterior left renal cortex, there is some fat density, in angiomyolipoma is possible in this region.. GI tract: The stomach is normal. The small bowel has a normal caliber. No obstruction, ileus or enteritis. The cecum, appendix and colon are normal.. Lymph nodes and mesentery: Normal. Vasculature: Normal. Bladder: Normal. Reproductive organs: No pelvic masses.. Peritoneum: No free fluid. Musculoskeletal structures: No significant abnormality. Other: There are 2 small fat containing ventral hernias 1 near the umbilicus and 1 just above the umbilicus. These have not changed.. IMPRESSION: There is no evidence of intestinal or urinary tract obstruction. No ileus or enteritis. The appendix is normal. Transcribed By: [facility] Dictated By: JIMBO BRADFORD MD Electronically Authenticated By: JIMBO BRADFORD MD Signed Date/Time: 08/15/17324 DD/ 4 TD/TT: 08/15/17324 Critical care attestation.: If time is entered above; I have spent that time in minutes in the direct care of this critically ill patient, excluding procedure time. ED Disposition Clinical Impression: Abdominal pain, UTI (urinary tract infection) Disposition: - TO HOME OR SELFCARE Is pt being admited?: No Condition: Stable Instructions: Urinary Tract Infection in Women (ED), Abdominal Pain (ED) Referrals: PRIMARY CARE, [Primary Care Provider] - 3-5 Days
[2017-08-15] MEDS ORDERED: BENADRYL IV ONE ×2 (00:43→04:03)
[2017-08-15] MEDS ORDERED: NACL 0.9% 1000 ML 1,000 ML IV ONE (00:43)
[2017-08-15] MEDS ORDERED: MORPHINE IV ONE (02:31)
[2017-08-15] MEDS ORDERED: NACL ONE (02:42)
--- NOTE | 2017-08-15 03:30 | Cat Scan Report ---
FINAL REPORT PROCEDURE: CT ABDOMEN PELVIS W CON TECHNIQUE: Computerized axial tomography of the abdomen and pelvis was performed after the IV injection of iodinated nonionic contrast. HISTORY: abdominal pain COMPARISON: 02/07/2017 FINDINGS: Visualized lower thorax: No significant abnormality. Liver: Normal size and attenuation. Spleen: Normal size and attenuation. Gallbladder and biliary system: Normal. Pancreas: Normal. Adrenals: Normal. Kidneys: Both kidneys have normal size. No hydronephrosis. There is a 1 centimeter region of mixed attenuation in the posterior left renal cortex, there is some fat density, in angiomyolipoma is possible in this region.. GI tract: The stomach is normal. The small bowel has a normal caliber. No obstruction, ileus or enteritis. The cecum, appendix and colon are normal.. Lymph nodes and mesentery: Normal. Vasculature: Normal. Bladder: Normal. Reproductive organs: No pelvic masses.. Peritoneum: No free fluid. Musculoskeletal structures: No significant abnormality. Other: There are 2 small fat containing ventral hernias 1 near the umbilicus and 1 just above the umbilicus. These have not changed.. IMPRESSION: There is no evidence of intestinal or urinary tract obstruction. No ileus or enteritis. The appendix is normal.
[2017-08-15 06:44] VITALS: BP 127/70
== END 2017-08-15 06:30 | disposition home or self-care (01) ==
LOC: ED 13:27
DX: N39.0 Urinary tract infection, site not specified (principal); I10 Essential (primary) hypertension; I25.2 Old myocardial infarction; Z86.73 Personal history of transient ischemic attack (TIA), and cerebral infarction without residual deficits; Z88.8 Allergy status to other drugs, medicaments and biological substances; Z88.6 Allergy status to analgesic agent; Z91.041 Radiographic dye allergy status; Z91.013 Allergy to seafood
CPT/HCPCS: 36415; 74022; 74177; 80053; 81001; 81025; 82140; 83690; 84484; 85025; 85610; 85730; 86850; 86900; 86901; 96361; 96374; 96375; 96376; 99285; C9113; J1200; J2270; J2405; J2930; J3010; J7030; Q9967

== ENCOUNTER 2017-11-17 14:24 | Emergency (ER) | payer SELFPAY ==
[2017-11-17] MEDS ORDERED: ASPIRIN PO ONE (14:37)
[2017-11-17 15:07] LABS: Basophils # (Auto) 0.1 K/mm3 (0.0-0.1); Basophils % (Auto) 1.1 % (0.0-1.8); Eosinophils # (Auto) 0.1 K/mm3 (0.0-0.4); Hematocrit 33.7 % (30.3-42.9); Hemoglobin 10.9 gm/dl (10.1-14.3); Lymphocytes # (Auto) 2.9 K/mm3 (1.2-5.4); Lymphocytes % (Auto) 37.1 % (13.4-35.0); Mean Corpuscular HGB Conc 32 % (30-34); Mean Corpuscular Hemoglobin 27 pg (28-32); Mean Corpuscular Volume 84 fl (79-97); Monocytes # (Auto) 0.6 K/mm3 (0.0-0.8); Monocytes % (Auto) 7.1 % (0.0-7.3)
[2017-11-17 15:08] LABS: Platelet Count 277 K/mm3 (140-440)
--- NOTE | 2017-11-17 15:10 | Emergency Department Report ---
ED Chest Pain HPI - General Chief Complaint: Chest Pain Stated Complaint: HIGH BLOOD PRESSURE/ FEELING WEAK Time Seen by Provider: 11/17/17 15:09 Source: patient Mode of arrival: Ambulatory Limitations: No Limitations - Related Data Home Medications Medication Instructions Recorded Confirmed Last Taken Esomeprazole Magnesium [NexIUM] 40 mg PO DAILY 11/02/14 05/02/17 11/30/16 Hydromorphone HCl [Dilaudid] 4 mg PO Q6H PRN 11/02/14 05/02/17 11/12/16 diphenhydrAMINE [Benadryl CAP] 50 mg PO Q4H PRN 11/02/14 05/02/17 11/12/16 traZODone [Desyrel] 50 mg PO QHS 11/02/14 05/02/17 11/30/16 Docusate Sodium [Colace CAP] 100 mg PO DAILY 11/14/16 05/02/17 11/30/16 Enoxaparin [Lovenox] 1 each SQ BID 11/14/16 05/02/17 11/30/16 Morphine [Morphine TAB] 15 mg PO Q4H 11/14/16 05/02/17 11/12/16 Previous Rx's Medication Instructions Recorded Last Taken Type Simvastatin [Zocor TAB] 20 mg PO QHS #30 tablet 11/16/16 11/30/16 Rx Famotidine [Pepcid] 20 mg PO BID #20 tablet 02/07/17 Unknown Rx Promethazine [Phenergan TAB] 25 mg PO Q6HR PRN #20 tab 02/07/17 Unknown Rx Promethazine [Phenergan] 25 mg [place] Q6HR PRN #5 supp.rect 02/07/17 Unknown Rx traMADol [Ultram] 50 mg PO Q6HR PRN #14 tablet 02/07/17 Unknown Rx Ondansetron [Zofran Odt] 4 mg PO Q8HR PRN #20 tab.rapdis 05/02/17 Unknown Rx Ciprofloxacin HCl [Ciprofloxacin 500 mg PO Q12H #14 tab 08/15/17 Unknown Rx TAB] Allergies Allergy/AdvReac Type Severity Reaction Status Date / Time acetaminophen [From Tylenol] Allergy Shortness Verified 08/14/17 13:33 of Breath blue dye Allergy Unknown Verified 08/14/17 13:33 hydrocodone bitartrate Allergy Unknown Verified 08/14/17 13:33 [From Lortab] NSAIDS (Non-Steroidal Allergy Unknown Verified 08/14/17 13:33 Anti-Inflamma oxycodone HCl [From Percocet] Allergy Unknown Verified 08/14/17 13:33 shellfish derived Allergy Unknown Verified 08/14/17 13:33 tramadol Allergy Unknown Verified 08/14/17 13:33 tramadol HCl [From Ultram] Allergy Unknown Verified 08/14/17 13:33 iv dye Allergy Itching Uncoded 08/14/17 13:33 ED Review of Systems ROS: Stated complaint: HIGH BLOOD PRESSURE/ FEELING WEAK Other details as noted in HPI ED Past Medical Hx - Past Medical History Hx Hypertension: Yes Hx CVA: Yes () Hx Heart Attack/AMI: Yes (2011) Hx Congestive Heart Failure: No Hx Diabetes: No Hx Pulmonary Embolism: Yes Hx Asthma: No Hx COPD: No Hx HIV: No Additional medical history: Protein c and s Def. June PE - Surgical History Additional Surgical History: tubal ligation. endometrial ablation - Social History Smoking Status: Never Smoker Substance Use Type: None - Medications Home Medications: Home Medications Medication Instructions Recorded Confirmed Last Taken Type Esomeprazole Magnesium [NexIUM] 40 mg PO DAILY 11/02/14 05/02/17 11/30/16 History Hydromorphone HCl [Dilaudid] 4 mg PO Q6H PRN 11/02/14 05/02/17 11/12/16 History diphenhydrAMINE [Benadryl CAP] 50 mg PO Q4H PRN 11/02/14 05/02/17 11/12/16 History traZODone [Desyrel] 50 mg PO QHS 11/02/14 05/02/17 11/30/16 History Docusate Sodium [Colace CAP] 100 mg PO DAILY 11/14/16 05/02/17 11/30/16 History Enoxaparin [Lovenox] 1 each SQ BID 11/14/16 05/02/17 11/30/16 History Morphine [Morphine TAB] 15 mg PO Q4H 11/14/16 05/02/17 11/12/16 History Simvastatin [Zocor TAB] 20 mg PO QHS #30 tablet 11/16/16 05/02/17 11/30/16 Rx Famotidine [Pepcid] 20 mg PO BID #20 tablet 02/07/17 05/02/17 Unknown Rx Promethazine [Phenergan TAB] 25 mg PO Q6HR PRN #20 tab 02/07/17 05/02/17 Unknown Rx Promethazine [Phenergan] 25 mg [place] Q6HR PRN #5 supp.rect 02/07/17 05/02/17 Unknown Rx traMADol [Ultram] 50 mg PO Q6HR PRN #14 tablet 02/07/17 05/02/17 Unknown Rx Ondansetron [Zofran Odt] 4 mg PO Q8HR PRN #20 tab.rapdis 05/02/17 Unknown Rx Ciprofloxacin HCl [Ciprofloxacin 500 mg PO Q12H #14 tab 08/15/17 Unknown Rx TAB] ED Physical Exam - General Limitations: No Limitations ED Course Vital Signs 11/17/17 14:28 Temperature 99.3 F Pulse Rate 103 H Respiratory 20 Rate Blood Pressure 141/84 O2 Sat by Pulse 96 Oximetry FAY score - Fay Score Age > 65: (0) No Aspirin use within the Past 7 Days: (0) No 3 or more CAD Risk Factors: (0) No 2 or more Angina events in past 24 hrs: (0) No Known CAD with more than 50% Stenosis: (0) No Elevated Cardiac Markers: (0) No ST Deviation Greater than 0.5mm: (0) No FAY Score: 0 ED Medical Decision Making - Lab Data Result diagrams: 11/17/17 14:53 Critical care attestation.: If time is entered above; I have spent that time in minutes in the direct care of this critically ill patient, excluding procedure time. ED Disposition Condition: Stable
[2017-11-17 15:20] LABS: BUN/Creatinine Ratio 8; Blood Urea Nitrogen 7 mg/dL (7-17); Calcium 9.1 mg/dL (8.4-10.2); Hemolysis Index 55
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
--- NOTE | 2017-11-17 15:34 | Emergency Department Report ---
[facility]illi[facility] Doc - Documentation Documentation: This is a 42-year-old patient came to the emergency room because she says she has high blood pressure and she was started on lisinopril and she took it today and she became swollen and her face, legs and arms. She says she is feeling hot and flushed and having chest pain and shortness of breath. Patient states that she is having leg pain and pain in her arms. She denies any swelling of lips, tongue or throat. Denies any coughing, stridor or wheezing. Pain is 8 out of 10 to her extremities and her chest and feels achy. Pain is located to the mid chest no numbness or tingling to extremities. Patient blood pressure is stable in triage area. Patient states that she thinks she was allergic to lisinopril. Patient also has protein C&S deficiency and she is had multiple episode of PE and DVT in her arms and legs. She is currently on Lovenox 100 mg twice a day. Patient states she is allergic to aspirin, Motrin , Eliquisand Coumadin. No medication taken prior to coming to emergency for pain. She says she feels like her face is swollen. Denies any visual discomfort. No alleviating or exacerbating factors. Physical exam This is an obese patient said is nontoxic in appearance. She has minimal swelling to her lower extremities and she said it is painful to touch. No swelling noted to upper extremities and she said her face is swollen but I really do not see any swelling to her face. Her oral exam is normal without any angioedema, uvula is midline and oral airways patent. She has no drooling and lip and face without swelling. Neck: Full range of motion, supple, no tracheal deviation and no adenopathy Extremity:No cc. Positive swelling to bilateral lower extremity with tenderness to palpate + 2 pulses in all extremities, no neurovascular compromise. Assessment/plan -Patient was screened by Dr. Baker and seen by myself or displaced. Was decided that patient will be transferred to main side since she has multiple complications to include protein C&S deficiency with multiple episode of PE and DVTs. Patient refused aspirin because she says she is allergic to it. Labs were ordered Bilateral upper and lower extremity vascular ultrasound ordered Patient awaiting in bed on main side to be transferred and I spoke with Dr. Eaton and Dr. Fajardo regarding patient. They will order further studies as needed. INT placed and she received morphine 2 mg IV and Zofran 8 mg IV. She also received Decadron [address] later [address] Baker ordered Benadryl for patient. She is stable and in no acute distress. Vital signs are stable. She is afebrile
[2017-11-17 16:11] LABS: INR 0.93 (0.87-1.13)
[2017-11-17 16:12] LABS: Partial Thromboplastin Time 21.7 Sec. (24.2-36.6)
[2017-11-17] MEDS ORDERED: DECADRON IV ONE (16:22)
[2017-11-17] MEDS ORDERED: MORPHINE IM ONE (16:22)
[2017-11-17] MEDS ORDERED: ZOFRAN IV ONE (16:23)
[2017-11-17] MEDS ORDERED: BENADRYL IV ONE ×2 (16:52→21:18)
--- NOTE | 2017-11-17 17:09 | Emergency Department Report ---
ED Chest Pain HPI - General Chief Complaint: Chest Pain Stated Complaint: HIGH BLOOD PRESSURE/ FEELING WEAK Time Seen by Provider: 11/17/17 15:09 Source: patient Mode of arrival: Ambulatory Limitations: No Limitations - History of Present Illness MD Complaint: chest pain -: Sudden Onset: during rest Pain Location: substernal Pain Radiation: none Severity: moderate Severity scale (0 -10): 5 Quality: sharp Consistency: constant Improves With: nothing Worsens With: nothing re: denies: nausea, vomting Other Symptoms: denies: fever Treatments Prior to Arrival: none - Related Data On Oral Contraceptives: No Home Medications Medication Instructions Recorded Confirmed Last Taken Esomeprazole Magnesium [NexIUM] 40 mg PO DAILY 11/02/14 05/02/17 11/30/16 Hydromorphone HCl [Dilaudid] 4 mg PO Q6H PRN 11/02/14 05/02/17 11/12/16 diphenhydrAMINE [Benadryl CAP] 50 mg PO Q4H PRN 11/02/14 05/02/17 11/12/16 traZODone [Desyrel] 50 mg PO QHS 11/02/14 05/02/17 11/30/16 Docusate Sodium [Colace CAP] 100 mg PO DAILY 11/14/16 05/02/17 11/30/16 Enoxaparin [Lovenox] 1 each SQ BID 11/14/16 05/02/17 11/30/16 Morphine [Morphine TAB] 15 mg PO Q4H 11/14/16 05/02/17 11/12/16 Previous Rx's Medication Instructions Recorded Last Taken Type Simvastatin [Zocor TAB] 20 mg PO QHS #30 tablet 11/16/16 11/30/16 Rx Famotidine [Pepcid] 20 mg PO BID #20 tablet 02/07/17 Unknown Rx Promethazine [Phenergan TAB] 25 mg PO Q6HR PRN #20 tab 02/07/17 Unknown Rx Promethazine [Phenergan] 25 mg [place] Q6HR PRN #5 supp.rect 02/07/17 Unknown Rx traMADol [Ultram] 50 mg PO Q6HR PRN #14 tablet 02/07/17 Unknown Rx Ondansetron [Zofran Odt] 4 mg PO Q8HR PRN #20 tab.rapdis 05/02/17 Unknown Rx Ciprofloxacin HCl [Ciprofloxacin 500 mg PO Q12H #14 tab 08/15/17 Unknown Rx TAB] Allergies Allergy/AdvReac Type Severity Reaction Status Date / Time acetaminophen [From Tylenol] Allergy Shortness Verified 08/14/17 13:33 of Breath blue dye Allergy Unknown Verified 08/14/17 13:33 hydrocodone bitartrate Allergy Unknown Verified 08/14/17 13:33 [From Lortab] NSAIDS (Non-Steroidal Allergy Unknown Verified 08/14/17 13:33 Anti-Inflamma oxycodone HCl [From Percocet] Allergy Unknown Verified 08/14/17 13:33 shellfish derived Allergy Unknown Verified 08/14/17 13:33 tramadol Allergy Unknown Verified 08/14/17 13:33 tramadol HCl [From Ultram] Allergy Unknown Verified 08/14/17 13:33 iv dye Allergy Itching Uncoded 08/14/17 13:33 Heart Score - HEART Score History: Moderately suspicious EKG: Normal Age: < 45 Risk factors: 1-2 risk factors Troponin: < normal limit HEART Score: 2 - Critical Actions Critical Actions: 0-3 pts:0.9-1.7%risk of adverse cardiac event.Candidate for discharge ED Review of Systems ROS: Stated complaint: HIGH BLOOD PRESSURE/ FEELING WEAK Other details as noted in HPI Comment: All other systems reviewed and negative Constitutional: denies: chills, fever Eyes: denies: eye pain ENT: denies: ear pain, dental pain Respiratory: denies: cough, shortness of breath Cardiovascular: chest pain. denies: palpitations, edema Endocrine: no symptoms reported Gastrointestinal: denies: abdominal pain, nausea, vomiting, diarrhea Genitourinary: denies: urgency, dysuria, frequency Musculoskeletal: denies: back pain Skin: denies: rash, lesions Neurological: denies: headache, weakness, numbness, paresthesias Psychiatric: denies: anxiety, depression Hematological/Lymphatic: denies: easy bleeding, easy bruising ED Past Medical Hx - Past Medical History Hx Hypertension: Yes Hx CVA: Yes (2) Hx Heart Attack/AMI: Yes (2012) Hx Congestive Heart Failure: No Hx Diabetes: No Hx Pulmonary Embolism: Yes Hx Asthma: No Hx COPD: No Hx HIV: No Additional medical history: Protein c and s Def. June PE - Surgical History Additional Surgical History: tubal ligation. endometrial ablation - Social History Smoking Status: Never Smoker Substance Use Type: None - Medications Home Medications: Home Medications Medication Instructions Recorded Confirmed Last Taken Type Esomeprazole Magnesium [NexIUM] 40 mg PO DAILY 11/02/14 05/02/17 11/30/16 History Hydromorphone HCl [Dilaudid] 4 mg PO Q6H PRN 11/02/14 05/02/17 11/12/16 History diphenhydrAMINE [Benadryl CAP] 50 mg PO Q4H PRN 11/02/14 05/02/17 11/12/16 History traZODone [Desyrel] 50 mg PO QHS 11/02/14 05/02/17 11/30/16 History Docusate Sodium [Colace CAP] 100 mg PO DAILY 11/14/16 05/02/17 11/30/16 History Enoxaparin [Lovenox] 1 each SQ BID 11/14/16 05/02/17 11/30/16 History Morphine [Morphine TAB] 15 mg PO Q4H 11/14/16 05/02/17 11/12/16 History Simvastatin [Zocor TAB] 20 mg PO QHS #30 tablet 11/16/16 05/02/17 11/30/16 Rx Famotidine [Pepcid] 20 mg PO BID #20 tablet 02/07/17 05/02/17 Unknown Rx Promethazine [Phenergan TAB] 25 mg PO Q6HR PRN #20 tab 02/07/17 05/02/17 Unknown Rx Promethazine [Phenergan] 25 mg [place] Q6HR PRN #5 supp.rect 02/07/17 05/02/17 Unknown Rx traMADol [Ultram] 50 mg PO Q6HR PRN #14 tablet 02/07/17 05/02/17 Unknown Rx Ondansetron [Zofran Odt] 4 mg PO Q8HR PRN #20 tab.rapdis 05/02/17 Unknown Rx Ciprofloxacin HCl [Ciprofloxacin 500 mg PO Q12H #14 tab 08/15/17 Unknown Rx TAB] ED Physical Exam - General Limitations: No Limitations General appearance: alert, in no apparent distress - Head Head exam: Present: atraumatic, normocephalic, normal inspection - Eye Eye exam: Present: normal appearance, PERRL, EOMI. Absent: scleral icterus Pupils: Present: normal accommodation - ENT ENT exam: Present: normal exam, normal orophraynx, mucous membranes moist - Neck Neck exam: Present: normal inspection, full ROM. Absent: tenderness - Respiratory Respiratory exam: Present: normal lung sounds bilaterally. Absent: respiratory distress, wheezes, rales, rhonchi - Cardiovascular Cardiovascular Exam: Present: regular rate, normal rhythm, normal heart sounds - GI/Abdominal GI/Abdominal exam: Present: soft, normal bowel sounds. Absent: distended, tenderness, guarding, rebound, rigid - Extremities Exam Extremities exam: Present: normal inspection, full ROM, normal capillary refill - Back Exam Back exam: Present: normal inspection, full ROM - Neurological Exam Neurological exam: Present: alert, oriented X3, CN II-XII intact - Psychiatric Psychiatric exam: Present: normal affect, normal mood - Skin Skin exam: Present: warm, dry, intact, normal color ED Course Vital Signs 11/17/17 11/17/17 11/17/17 14:28 16:45 16:54 Temperature 99.3 F Pulse Rate 103 H Respiratory 20 18 Rate Blood Pressure 141/84 154/89 Blood Pressure [Left] O2 Sat by Pulse 96 Oximetry 11/17/17 11/17/17 11/17/17 17:00 17:07 17:15 Temperature Pulse Rate 85 79 Respiratory 18 15 Rate Blood Pressure 154/89 158/95 Blood Pressure 154/86 [Left] O2 Sat by Pulse 100 100 100 Oximetry 11/17/17 11/17/17 11/17/17 18:24 18:30 18:45 Temperature Pulse Rate 96 H 77 87 Respiratory 13 14 Rate Blood Pressure 158/95 144/89 156/93 Blood Pressure [Left] O2 Sat by Pulse 99 99 Oximetry 11/17/17 11/17/17 11/17/17 19:00 19:44 19:45 Temperature Pulse Rate 75 Respiratory 24 Rate Blood Pressure 156/93 156/93 156/93 Blood Pressure [Left] O2 Sat by Pulse 98 98 98 Oximetry 11/17/17 11/17/17 11/17/17 20:01 20:15 20:31 Temperature Pulse Rate Respiratory Rate Blood Pressure 156/93 156/93 156/93 Blood Pressure [Left] O2 Sat by Pulse 98 99 96 Oximetry 0711/17/17 11/17/17 20:45 21:01 21:15 Temperature Pulse Rate Respiratory Rate Blood Pressure 156/93 156/93 156/93 Blood Pressure [Left] O2 Sat by Pulse 97 95 99 Oximetry 11/17/17 21:31 Temperature Pulse Rate Respiratory Rate Blood Pressure 137/89 Blood Pressure [Left] O2 Sat by Pulse 95 Oximetry - Reevaluation(s) Reevaluation #1: 11/17/17 22:04 I discussed patient care with the hospitalist stationary engineer apprentice Dr Audra De. She will admit patient to the hospital for further evaluation and management. FAY score - Fay Score Age > 65: (0) No Aspirin use within the Past 7 Days: (0) No 3 or more CAD Risk Factors: (0) No 2 or more Angina events in past 24 hrs: (0) No Known CAD with more than 50% Stenosis: (0) No Elevated Cardiac Markers: (0) No ST Deviation Greater than 0.5mm: (0) No FAY Score: 0 ED Medical Decision Making - Lab Data Result diagrams: 11/17/17 14:53 11/17/17 14:53 - EKG Data -: EKG Interpreted by Me EKG shows normal: sinus rhythm Rate: normal (84) - EKG Data When compared to previous EKG there are: previous EKG unavailable Interpretation: normal EKG, other (No STEMI) - Radiology Data Radiology results: report reviewed, image reviewed Chest Pain. Critical care attestation.: If time is entered above; I have spent that time in minutes in the direct care of this critically ill patient, excluding procedure time. ED Disposition Clinical Impression: Hypercoagulable state, Elevated d-dimer Chest pain Qualifiers: Chest pain type: unspecified Qualified Code(s): R07.9 - Chest pain, unspecified Disposition: DC-09 OP ADMIT IP TO THIS HOSP Is pt being admited?: Yes Does the pt Need Aspirin: Yes Condition: Stable Instructions: Chest Pain (ED) Referrals: PRIMARY CARE, [Primary Care Provider] - 3-5 Days Time of Disposition: 21:15
[2017-11-17 17:31] LABS: Alanine Aminotransferase 15 units/L (7-56); Albumin 3.8 g/dL (3.9-5)
[2017-11-17 17:48] LABS: Bilirubin,Direct < 0.2 mg/dL (0-0.2)
[2017-11-17 19:31] LABS: Bacteria,Urine 1+ /HPF (Negative); Bilirubin,Urine NEG (Negative); Blood,Urine NEG (Negative); Color,Urine Straw (Yellow); Mucus,Urine 1+ /HPF; Protein,Urine <15 mg/dL mg/dL (Negative); Urobilinogen,Urine < 2.0 mg/dL (<2.0)
--- NOTE | 2017-11-17 20:08 | Nuclear Medicine Report ---
FINAL REPORT PROCEDURE: NM LUNG SCAN PERF/VENT TECHNIQUE: 5.1 mCi Tc-99m MAA was injected IV for pulmonary perfusion imaging in multiple projections. 15.3 mCi Xenon 133 was inhaled for pulmonary ventilation imaging in multiple projections.. CPT 58327 HISTORY: Elevated D-Dimer, r/o PE. COMPARISON: No prior studies are available for comparison. FINDINGS: There is a single small, perfusion defect in the superior segment of the lingula. Perfusion otherwise is unremarkable. The ventilation scan shows no defects. Normal wash-in and washout phase is visualized. IMPRESSION: Low probability for pulmonary embolus.
[2017-11-17] MEDS ORDERED: MORPHINE IV ONE (21:18)
[2017-11-17] MEDS ORDERED: LOVENOX SUB-Q ONE (21:32)
[2017-11-17 21:43] VITALS: BP 137/89
--- NOTE | 2017-11-20 08:17 | Vascular Lab Report ---
UPPER EXTREMITY VENOUS DUPLEX: REASON FOR EXAM: Pain and swelling of the upper extremities COMMENTS ON THE RIGHT: All arm veins visualized are freely compressible without evidence of internal echogenicity. The subclavian and internal jugular veins are free of thrombus. Flow is spontaneous and phasic throughout. COMMENTS ON THE LEFT: All arm veins visualized are freely compressible without evidence of internal echogenicity. The subclavian and internal jugular veins are free of thrombus. Flow is spontaneous and phasic throughout. IMPRESSION: No evidence of acute or chronic deep venous thrombosis in the upper extremities.
== END 2017-11-17 22:39 | disposition left against medical advice (07) ==
LOC: ED 14:24
DX: R07.89 Other chest pain (principal); R79.1 Abnormal coagulation profile; D68.59 Other primary thrombophilia; I11.9 Hypertensive heart disease without heart failure; Z86.73 Personal history of transient ischemic attack (TIA), and cerebral infarction without residual deficits; I25.2 Old myocardial infarction; Z86.711 Personal history of pulmonary embolism; Z98.51 Tubal ligation status; Z88.8 Allergy status to other drugs, medicaments and biological substances
CPT/HCPCS: 36415; 78582; 80048; 80074; 81001; 82962; 84484; 84702; 84703; 85025; 85379; 85610; 85730; 93005; 93010; 93970; 96372; 96374; 96375; 96376; 99285; A9540; A9558; J1100; J1200; J1650; J2270; J2405

== ENCOUNTER 2017-11-20 13:34 | Inpatient (IN) | payer OTHER ==
--- NOTE | 2017-11-20 15:43 | Emergency Department Report ---
Blank Doc - Documentation Documentation: Patient is a 42-year-old black female with past history of protein S deficiency who is presenting with bilateral leg and chest pain. Patient states that his symptoms have not improved since she was here last which was approximately 4 days ago. Patient now also has a sore throat. Patient states that despite being on Lovenox she has had PEs and DVTs in the past. Patient states she feels similar to when she had her last PE. On focused physical exam patient has trace edema in bilateral lower extremities with no redness or warmth. Patient's lungs are clear to auscultation heart tones are normal. Patient's posterior pharynx does show some erythema. Rapid strep was done. Because of the patient being high risk and despite having a negative VQ scan and ultrasound Dopplers of the leg several days ago repeat studies will be performed.
--- NOTE | 2017-11-20 18:01 | XRay Report ---
FINAL REPORT EXAM: XR CHEST ROUTINE 2V HISTORY: chest pain TECHNIQUE: PA and lateral views of the chest PRIORS: CXR 08/14/2017 FINDINGS: Lines, tubes, and devices: Surgical clips in the right axilla are again noted. Lungs and pleura: Trachea is normal in position. Lungs are clear of infiltrate, pleural effusion, vascular congestion, or pneumothorax. No change. Cardiomediastinal silhouette: Cardiac and mediastinal silhouettes are unremarkable. Other: Bony structures are intact. IMPRESSION: No acute cardiopulmonary process seen. No change.
--- NOTE | 2017-11-20 19:14 | Nuclear Medicine Report ---
FINAL REPORT EXAM: NM LUNG SCAN PERF/VENT HISTORY: protein s def with chest pain TECHNIQUE: Perfusion imaging of the lungs was performed in multiple planar projections. Ventilation images were obtained in the posterior projection during inhalation, equilibrium, and washout phases. Correlation with a chest x-ray dated 11/20/2017 was made. DOSE: 15.3 millicuries Xe-133 gas; 3.49 millicuries 99m Tc MAA given IV. PRIORS: V/Q 11/17/2017 FINDINGS: On the perfusion exam, the previously noted single perfusion defect in the superior segment of the lingula is no longer visualized. Currently, the tracer distribution on perfusion imaging is homogeneous throughout. No unmatched segmental or subsegmental perfusion defects are identified to suggest the presence of pulmonary embolism. The ventilation study is also homogeneous and within normal limits. No evidence for gas trapping is noted. IMPRESSION: Normal V/Q scan. A small perfusion defect seen previously in the lingula is no longer visualized.
[2017-11-20] MEDS ORDERED: ZOFRAN ONE (19:36)
[2017-11-20] MEDS ORDERED: MORPHINE ONE (19:37)
[2017-11-20] MEDS ORDERED: BENADRYL ONE (19:39)
[2017-11-20] MEDS ORDERED: ZOFRAN IV ONE ×2 (19:40→23:36)
[2017-11-20] MEDS ORDERED: MORPHINE IV ONE (19:40)
[2017-11-20] MEDS ORDERED: BENADRYL IV ONE (19:40)
[2017-11-20] MEDS ORDERED: SUBLIMAZE IV ONE (23:36)
[2017-11-20] MEDS ORDERED: NITRO-BID 2% TP ONE (23:37)
--- NOTE | 2017-11-20 23:45 | Emergency Department Report ---
HPI - General Chief Complaint: Pain General Time Seen by Provider: 11/20/17 15:31 - HPI HPI: Room 33 The patient is a 42-year-old female presented with a chief complaint chest pain. The patient states her symptoms began 3 days ago with bilateral lower extremity edema and chest pain. The patient states she came to the ED for evaluation. The patient states she was seen and evaluated but needed to leave the hospital to take care of her sick child. The patient states this morning at approximately 10:00 her symptoms return again she noticed bilateral lower extremity edema as well as swelling in both arms, nausea vomiting, shortness of breath and substernal chest pain that was sharp in nature. Patient denies diaphoresis. The patient was diagnosed with a PE in June 2017 is currently on Lovenox twice a day. Patient has a history of protein S and protein C deficiency. The patient states she's never had a stress test or cardiac catheterization. The patient gives her pain score of 10/10 Location: [See above] Duration: See above Quality: Sharp Severity: 10/10 Modifying factors: [see above] Context: [see above] Mode of transportation: [not driving] ED Past Medical Hx - Past Medical History Hx Hypertension: Yes Hx CVA: Yes (TIA, [id number]-tdydq-sided weakness) Hx Heart Attack/AMI: Yes (2011) Hx Pulmonary Embolism: Yes Additional medical history: Protein c and s Def. June 2017 PE - Surgical History Additional Surgical History: tubal ligation. endometrial ablation,hysterectomy , First right Rib r/t PE, - Family History Family history: no significant - Social History Smoking Status: Never Smoker Substance Use Type: None (denies illicit drug use) - Medications Home Medications: Home Medications Medication Instructions Recorded Confirmed Last Taken Type Esomeprazole Magnesium [NexIUM] 40 mg PO DAILY 11/02/14 05/02/17 11/30/16 History Hydromorphone HCl [Dilaudid] 4 mg PO Q6H PRN 11/02/14 05/02/17 11/12/16 History diphenhydrAMINE [Benadryl CAP] 50 mg PO Q4H PRN 11/02/14 05/02/17 11/12/16 History traZODone [Desyrel] 50 mg PO QHS 11/02/14 05/02/17 11/30/16 History Docusate Sodium [Colace CAP] 100 mg PO DAILY 11/14/16 05/02/17 11/30/16 History Enoxaparin [Lovenox] 1 each SQ BID 11/14/16 05/02/17 11/30/16 History Morphine [Morphine TAB] 15 mg PO Q4H 11/14/16 05/02/17 11/12/16 History Simvastatin [Zocor TAB] 20 mg PO QHS #30 tablet 11/16/16 05/02/17 11/30/16 Rx Famotidine [Pepcid] 20 mg PO BID #20 tablet 02/07/17 05/02/17 Unknown Rx Promethazine [Phenergan TAB] 25 mg PO Q6HR PRN #20 tab 02/07/17 05/02/17 Unknown Rx Promethazine [Phenergan] 25 mg [place] Q6HR PRN #5 supp.rect 02/07/17 05/02/17 Unknown Rx traMADol [Ultram] 50 mg PO Q6HR PRN #14 tablet 02/07/17 05/02/17 Unknown Rx Ondansetron [Zofran Odt] 4 mg PO Q8HR PRN #20 tab.rapdis 05/02/17 Unknown Rx Ciprofloxacin HCl [Ciprofloxacin 500 mg PO Q12H #14 tab 08/15/17 Unknown Rx TAB] ED Review of Systems ROS: Stated complaint: BLOOD PRESSURE Other details as noted in HPI Constitutional: denies: diaphoresis Respiratory: shortness of breath Cardiovascular: chest pain Endocrine: no symptoms reported Gastrointestinal: nausea, vomiting Musculoskeletal: myalgia Hematological/Lymphatic: other (extremity swelling) Physical Exam - Physical Exam Vital Signs: Vital Signs 11/20/17 13:38 Temperature 98.2 F Pulse Rate 80 Respiratory 18 Rate Blood Pressure 143/88 O2 Sat by Pulse 100 Oximetry Physical Exam: GENERAL: The patient is well-developed well-nourished female lying on stretcher not appearing to be in acute distress. [] HEENT: Normocephalic. Atraumatic. Extraocular motions are intact. Patient has moist mucous membranes. NECK: Supple. Trachea midline. Right EJ IV in place CHEST/LUNGS: Clear to auscultation. There is no respiratory distress noted. HEART/CARDIOVASCULAR: Regular. There is no tachycardia. There is no gallop rub or murmur. ABDOMEN: Abdomen is soft, nontender. Patient has normal bowel sounds. There is no abdominal distention. SKIN: There is no rash. There is trace bilateral lower extremity edema. There is no diaphoresis. NEURO: The patient is awake, alert, and oriented. The patient is cooperative. The patient has normal speech MUSCULOSKELETAL: There is no evidence of acute injury. ED Course Vital Signs 11/20/17 13:38 Temperature 98.2 F Pulse Rate 80 Respiratory 18 Rate Blood Pressure 143/88 O2 Sat by Pulse 100 Oximetry ED Medical Decision Making - Lab Data Result diagrams: 11/20/17 23:42 11/20/17 23:42 Laboratory Tests 11/20/17 11/20/17 11/20/17 23:42 23:42 23:42 WBC 9.4 RBC 4.30 Hgb 11.9 Hct 36.0 MCV 84 MCH 28 MCHC 33 RDW 14.2 Plt Count 321 Lymph % (Auto) 41.4 H Morton % (Auto) 4.8 Eos % (Auto) 0.9 Baso % (Auto) 0.6 Lymph # 3.9 Morton # 0.4 Eos # 0.1 Baso # 0.1 Seg Neutrophils % 52.3 Seg Neutrophils # 4.9 Sodium 139 Potassium 3.9 Chloride 97.4 L Carbon Dioxide 28 Anion Gap 18 BUN 9 Creatinine 0.9 Estimated GFR > 60 BUN/Creatinine Ratio 10 Glucose 97 Calcium 9.4 Total Creatine Kinase 179 H CK-MB (CK-2) < 1.0 CK-MB (CK-2) Rel Index 0.5 Troponin T < 0.010 NT-Pro-B Natriuret Pep 11/20/17 23:42 WBC RBC Hgb Hct MCV MCH MCHC RDW Plt Count Lymph % (Auto) Morton % (Auto) Eos % (Auto) Baso % (Auto) Lymph # Morton # Eos # Baso # Seg Neutrophils % Seg Neutrophils # Sodium Potassium Chloride Carbon Dioxide Anion Gap BUN Creatinine Estimated GFR BUN/Creatinine Ratio Glucose Calcium Total Creatine Kinase CK-MB (CK-2) CK-MB (CK-2) Rel Index Troponin T NT-Pro-B Natriuret Pep 73.19 - EKG Data -: EKG Interpreted by Dc EKG shows normal: sinus rhythm Rate: normal - EKG Data When compared to previous EKG there are: previous EKG unavailable Interpretation: other (No ischemic changes seen) - Radiology Data Radiology results: report reviewed (chest x-ray, VQ scan), image reviewed ( chest x-ray, VQ scan) interpreted by me: Chest x-ray-no focal infiltrates, no pneumothorax [address] [address] Nuclear Medicine Report Signed Patient: ANTONIO JORDAN MR#: [id number] : 1975 Acct:[id number] Age/Sex: 42 / F ADM Date: 11/20/17 Loc: ED Attending Dr: Ordering Physician: CAMILLE BRADFORD MD Date of Service: 11/20/17 Procedure(s): NM lung scan perf/vent Accession Number(s): [id number] cc: CAMILLE BRADFORD MD FINAL REPORT EXAM: NM LUNG SCAN PERF/VENT HISTORY: protein s def with chest pain TECHNIQUE: Perfusion imaging of the lungs was performed in multiple planar projections. Ventilation images were obtained in the posterior projection during inhalation, equilibrium, and washout phases. Correlation with a chest x-ray dated 11/20/2017 was made. DOSE: 15.3 millicuries Xe-133 gas; 3.49 millicuries 99m Tc MAA given IV. PRIORS: V/Q 11/17/2017 FINDINGS: On the perfusion exam, the previously noted single perfusion defect in the superior segment of the lingula is no longer visualized. Currently, the tracer distribution on perfusion imaging is homogeneous throughout. No unmatched segmental or subsegmental perfusion defects are identified to suggest the presence of pulmonary embolism. The ventilation study is also homogeneous and within normal limits. No evidence for gas trapping is noted. IMPRESSION: Normal V/Q scan. A small perfusion defect seen previously in the lingula is no longer visualized. Transcribed By: [facility] Dictated By: DELANO MANN MD Electronically Authenticated By: DELANO MANN MD Signed Date/Time: 11/20/171905 DD/ 05 TD/TT: 11/20/171905 [address] [address] XRay Report Signed Patient: ANTONIO JORDAN MR#: [id number] : 1975 Acct:[id number] Age/Sex: 42 / F ADM Date: 11/20/17 Loc: ED Attending Dr: Ordering Physician: CAMILLE BRADFORD MD Date of Service: 11/20/17 Procedure(s): XR chest routine 2V Accession Number(s): [id number] cc: CAMILLE BRADFORD MD Fluoro Time In Minutes: FINAL REPORT EXAM: XR CHEST ROUTINE 2V HISTORY: chest pain TECHNIQUE: PA and lateral views of the chest PRIORS: CXR 08/14/2017 FINDINGS: Lines, tubes, and devices: Surgical clips in the right axilla are again noted. Lungs and pleura: Trachea is normal in position. Lungs are clear of infiltrate, pleural effusion, vascular congestion, or pneumothorax. No change. Cardiomediastinal silhouette: Cardiac and mediastinal silhouettes are unremarkable. Other: Bony structures are intact. IMPRESSION: No acute cardiopulmonary process seen. No change. Transcribed By: [facility] Dictated By: DELANO MANN MD Electronically Authenticated By: DELANO MANN MD Signed Date/Time: 11/20/171753 DD/ 53 TD/TT: 11/20/171753 - Differential Diagnosis ACS, PE, pericarditis, GERD, anxiety Critical care attestation.: If time is entered above; I have spent that time in minutes in the direct care of this critically ill patient, excluding procedure time. ED Disposition Clinical Impression: Chest pain Disposition: OP ADMIT IP TO THIS HOSP Is pt being admited?: Yes Does the pt Need Aspirin: No Condition: Fair Instructions: Chest Pain (ED) Referrals: PRIMARY CARE, [Primary Care Provider] - 3-5 Days Time of Disposition: 00:38 (hospitalist paged (Dr. Ijeoma De))
[2017-11-20 23:59] LABS: Basophils # (Auto) 0.1 K/mm3 (0.0-0.1); Basophils % (Auto) 0.6 % (0.0-1.8); Eosinophils # (Auto) 0.1 K/mm3 (0.0-0.4); Eosinophils % (Auto) 0.9 % (0.0-4.3); Hemoglobin 11.9 gm/dl (10.1-14.3); Lymphocytes # (Auto) 3.9 K/mm3 (1.2-5.4); Lymphocytes % (Auto) 41.4 % (13.4-35.0); Mean Corpuscular HGB Conc 33 % (30-34); Mean Corpuscular Hemoglobin 28 pg (28-32); Mean Corpuscular Volume 84 fl (79-97); Monocytes # (Auto) 0.4 K/mm3 (0.0-0.8); Monocytes % (Auto) 4.8 % (0.0-7.3); Platelet Count 321 K/mm3 (140-440); Red Cell Distribution Width 14.2 % (13.2-15.2)
[2017-11-21 00:17] LABS: BUN/Creatinine Ratio 10; Blood Urea Nitrogen 9 mg/dL (7-17); Calcium 9.4 mg/dL (8.4-10.2); Hemolysis Index 5
[2017-11-21 00:18] LABS: Creatine Kinase MB < 1.0 ng/mL (0.0-4.0)
[2017-11-21] MEDS ORDERED: BENADRYL IV ONE (01:01)
[2017-11-21] MEDS ORDERED: MORPHINE IV ONE (01:01)
[2017-11-21] MEDS ORDERED: SODIUM CHLORIDE FLUSH SYRINGE 10 ML IV PRN (01:37)
--- NOTE | 2017-11-21 01:40 | History and Physical Report ---
History of Present Illness Date of examination: 11/21/17 History of present illness: 42-year-old and a history of protein C, S deficiency, history of PE, DVT, coronary artery disease, previous stroke, hypertension, emergency room with complaints of chest pain. She was seen in the emergency room on 11/17 chest pain but did not want to stay in the hospital. Patient is in the epigastric area which she describes as a sharp pain, intermittent in nature over 6 minutes , intensity 7/10, no radiation, she can't identify exacerbating factor, better with IV narcotics. CAT scan of the chest was done on she days ago which was negative for pulmonary emboli, also negative for DVT on Dopplers of upper and lower extremities. She complains of nausea, no diaphoresis or palpitation, shortness of breath. The patient is on full dose Lovenox for DVT, PE, she is failed outpatient therapy of Coumadin, xarelto, eliquis Review of systems Constitutional: no weight loss, chills, fever Ears, eyes, nose, mouth and throat: no nasal congestion, no nasal discharge, no sinus pressure, no vision change, no red eye. Neck: No neck pain or rigidity. Cardiovascular: no palpitations Respiratory: no cough, shortness of breath Gastrointestinal: no abdominal pain hematochezia Genitourinary : no frequency , no hematuria Musculoskeletal: no joint swelling or muscle ache Integumentary: no rash, no pruritis Neurological: no parathesias, no numbness, no focal weakness Endocrine: no cold or heat intolerance, no polyuria or polydipsia Hematologic/Lymphatic: no easy bruising, no easy bleeding, no gland swelling Allergic/Immunologic: no urticaria, no angioedema PAST MEDICAL HISTORY: protein C, S deficiency, history of PE, DVT, coronary artery disease, previous stroke, hypertension PAST SURGICAL HISTORY: Placement and removal of port, IVC filter placement and removal, tubal ligation, hysterectomy, removal of right first rib SOCIAL HISTORY: No alcohol, no drugs, tobacco FAMILY HISTORY: Coronary artery disease Medications and Allergies Allergies Allergy/AdvReac Type Severity Reaction Status Date / Time acetaminophen [From Tylenol] Allergy Shortness Verified 08/14/17 13:33 of Breath blue dye Allergy Unknown Verified 08/14/17 13:33 hydrocodone bitartrate Allergy Unknown Verified 08/14/17 13:33 [From Lortab] NSAIDS (Non-Steroidal Allergy Unknown Verified 08/14/17 13:33 Anti-Inflamma oxycodone HCl [From Percocet] Allergy Unknown Verified 08/14/17 13:33 shellfish derived Allergy Unknown Verified 08/14/17 13:33 tramadol Allergy Unknown Verified 08/14/17 13:33 tramadol HCl [From Ultram] Allergy Unknown Verified 08/14/17 13:33 iv dye Allergy Itching Uncoded 08/14/17 13:33 Home Medications Medication Instructions Recorded Confirmed Last Taken Type Esomeprazole Magnesium [NexIUM] 40 mg PO DAILY 11/02/14 11/21/17 11/30/16 History Hydromorphone HCl [Dilaudid] 4 mg PO Q6H PRN 11/02/14 11/21/17 11/12/16 History diphenhydrAMINE [Benadryl CAP] 50 mg PO Q4H PRN 11/02/14 11/21/17 11/12/16 History traZODone [Desyrel] 50 mg PO QHS 11/02/14 11/21/17 11/30/16 History Enoxaparin [Lovenox] 1 each SQ BID 11/14/16 11/21/17 11/30/16 History Morphine [Morphine TAB] 15 mg PO Q4H 11/14/16 11/21/17 11/12/16 History Simvastatin [Zocor TAB] 20 mg PO QHS #30 tablet 11/16/16 11/21/17 11/30/16 Rx Ondansetron [Zofran Odt] 4 mg PO Q8HR PRN #20 tab.rapdis 05/02/17 11/21/17 Unknown Rx Exam - Physical Exam Narrative exam: Gen. appearance: Patient lying in bed, no apparent distress HEENT: Normocephalic, atraumatic, pupils equally round and reactive to light, extraocular movement intact, and no sclericterus,. No JVD or thyromegaly or nodule,neck supple, no carotid bruit ,mucous membranes moist, no exudate or erythema Heart: S1, S2, regular rate and rhythm Lungs: Clear bilaterally, breathing comfortable Abdomen: Positive bowel sounds, non-tender, nondistended, no organomegaly Extremity:no edema cyanosis, clubbing Skin: no rash, dry, warm Neuro: Oriented 3, cranial nerves II-12 intact, speech is fluent, motor and sensory intact - Constitutional Vitals: Temp Pulse Resp BP Pulse Ox 98.1 F 76 20 144/87 99 11/21/17 00:31 11/21/17 01:23 11/21/17 00:31 11/21/17 01:23 11/21/17 00:31 Results - Labs CBC & Chem 7: 11/20/17 23:42 11/20/17 23:42 Labs: Abnormal lab results 11/20/17 11/20/17 11/20/17 Range/Units 23:42 23:42 23:42 Lymph % (Auto) 41.4 H (13.4-35.0) % Chloride 97.4 L (98-107) mmol/L Total Creatine Kinase 179 H (30-135) units/L Assessment and Plan Assessment Chest pain, rule out ACS protein C, S deficiency, history of PE, DVT on full dose lovenox coronary artery disease previous stroke hypertension Plan Admit to medicine Check cardiac enzymes, IV morphine, stress test Consult cardiology DVT prophylaxis
[2017-11-21] MEDS: MORPHINE IV PRN ×3 (05:54→18:30)
[2017-11-21] MEDS: BENADRYL IV PRN ×3 (05:55→18:30)
[2017-11-21] MEDS ORDERED: LOVENOX SUB-Q SCH ×2 (10:00)
[2017-11-21] MEDS ORDERED: SODIUM CHLORIDE FLUSH SYRINGE 10 ML IV SCH (10:00)
[2017-11-21] MEDS ORDERED: PROTONIX PO SCH (10:00)
[2017-11-21] MEDS ORDERED: LEXISCAN IV ONE (11:21)
[2017-11-21] MEDS: ZOFRAN IV PRN ×2 (12:51→18:30)
--- NOTE | 2017-11-21 12:54 | Consultation ---
History of Present Illness Consult date: 11/21/17 Requesting physician: KRISTYN DIMAS Consult reason: chest pain History of present illness: The patient is a 42-year-old female with a past medical history significant for CVA, protein S and protein C deficiency, anticoagulated with lovenox BID, PE, DVT, s/p IVC filter which was later removed due to complications, obesity. She is previously unknown to our practice. She presented with complaints of chest pain and BLE swelling. The patient states her symptoms began 3 days ago and she came to the ED for evaluation and was evaluated but needed to leave the hospital to take care of her sick child. She noted continuation of her symptoms and decided to return to ED. She describes her chest pain as a nonexertional, nonradiating, midsternal stabbing pain. The pain is associated with some SOB, nausea and vomiting. She reports that she had a "heart attack" 4-5 years ago but did not undergo coronary angiography or PCI. She denies any history of heart failure. Past History Past Medical History: DVT, pulmonary embolism, other (protein S and protein C deficiency, anticoagulated with lovenox BID) Social history: denies: smoking, alcohol abuse, prescription drug abuse Medications and Allergies Allergies Allergy/AdvReac Type Severity Reaction Status Date / Time acetaminophen [From Tylenol] Allergy Shortness Verified 08/14/17 13:33 of Breath blue dye Allergy Unknown Verified 08/14/17 13:33 hydrocodone bitartrate Allergy Unknown Verified 08/14/17 13:33 [From Lortab] NSAIDS (Non-Steroidal Allergy Unknown Verified 08/14/17 13:33 Anti-Inflamma oxycodone HCl [From Percocet] Allergy Unknown Verified 08/14/17 13:33 shellfish derived Allergy Unknown Verified 08/14/17 13:33 tramadol Allergy Unknown Verified 08/14/17 13:33 tramadol HCl [From Ultram] Allergy Unknown Verified 08/14/17 13:33 iv dye Allergy Itching Uncoded 08/14/17 13:33 Home Medications Medication Instructions Recorded Confirmed Last Taken Type Esomeprazole Magnesium [NexIUM] 40 mg PO DAILY 11/02/14 11/21/17 11/30/16 History Hydromorphone HCl [Dilaudid] 4 mg PO Q6H PRN 11/02/14 11/21/17 11/12/16 History diphenhydrAMINE [Benadryl CAP] 50 mg PO Q4H PRN 11/02/14 11/21/17 11/12/16 History traZODone [Desyrel] 50 mg PO QHS 11/02/14 11/21/17 11/30/16 History Enoxaparin [Lovenox] 1 each SQ BID 11/14/16 11/21/17 11/30/16 History Morphine [Morphine TAB] 15 mg PO Q4H 11/14/16 11/21/17 11/12/16 History Simvastatin [Zocor TAB] 20 mg PO QHS #30 tablet 11/16/16 11/21/17 11/30/16 Rx Ondansetron [Zofran Odt] 4 mg PO Q8HR PRN #20 tab.rapdis 05/02/17 11/21/17 Unknown Rx Active Meds: Active Medications Diphenhydramine HCl (Benadryl) 25 mg IV Q6H PRN PRN Reason: Itching Last Admin: 11/21/17 12:49 Dose: 25 mg Enoxaparin Sodium (Lovenox) 100 mg SUB-Q BID [facility] Last Admin: 11/21/17 12:50 Dose: 100 mg Morphine Sulfate (Morphine) 2 mg IV Q4H PRN PRN Reason: Pain, Moderate (4-6) Last Admin: 11/21/17 12:50 Dose: 2 mg Ondansetron HCl (Zofran) 4 mg IV Q4H PRN PRN Reason: Nausea And Vomiting Last Admin: 11/21/17 12:51 Dose: 4 mg Pantoprazole Sodium (Protonix) 40 mg PO DAILY [facility] Last Admin: 11/21/17 12:50 Dose: 40 mg Pravastatin Sodium (Pravachol) 40 mg PO QHS [facility] Sodium Chloride (Sodium Chloride Flush Syringe 10 Ml) 10 ml IV BID [facility] Sodium Chloride (Sodium Chloride Flush Syringe 10 Ml) 10 ml IV PRN PRN PRN Reason: LINE FLUSH Review of Systems Constitutional: no weight loss, no weight gain, no fever, no chills, no sweats Ears, nose, mouth and throat: no ear pain, no nose pain, no sinus pressure, no sinus pain Cardiovascular: chest pain, shortness of breath, leg edema, no orthopnea, no palpitations, no rapid/irregular heart beat, no syncope, no lightheadedness Respiratory: shortness of breath, no cough, no congestion, no wheezing, no pain on inspiration Gastrointestinal: nausea, vomiting, no abdominal pain, no diarrhea, no constipation, no change in bowel habits Genitourinary Female: no pelvic pain, no flank pain Musculoskeletal: no neck stiffness, no neck pain, no shooting arm pain, no arm numbness/tingling, no low back pain, no shooting leg pain Integumentary: no rash, no pruritis, no redness, no sores, no wounds Neurological: no head injury, no paralysis, no weakness, no parathesias, no numbness, no tingling, no seizures, no syncope Psychiatric: no anxiety Endocrine: no cold intolerance, no heat intolerance Hematologic/Lymphatic: no easy bruising, no easy bleeding, no lymphadenopathy Allergic/Immunologic: no urticaria, no wheezing, no persistent infections Physical Examination Vital Signs Temp Pulse Resp BP Pulse Ox 98.2 F 80 18 143/88 100 11/20/17 13:38 11/20/17 13:38 11/20/17 13:38 11/20/17 13:38 11/20/17 13:38 General appearance: no acute distress HEENT: Positive: PERRL, Normocephaly, Mucus Membranes Moist Neck: Positive: neck supple, trachea midline Cardiac: Positive: Reg Rate and Rhythm, S1/S2 Lungs: Positive: clear to auscultation Neuro: Positive: Grossly Intact, Cranial Nerve 2-12 Intact Abdomen: Positive: Soft. Negative: Tender Skin: Positive: Clear. Negative: Rash Musculoskeletal: No Pain Extremities: Present: +1 Edema (BLE) Results 11/20/17 23:42 11/20/17 23:42 Cardiac Enzymes 11/20/17 Range/Units 23:42 CK-MB (CK-2) < 1.0 (0.0-4.0) ng/mL CBC 11/20/17 Range/Units 23:42 WBC 9.4 (4.5-11.0) K/mm3 RBC 4.30 (3.65-5.03) M/mm3 Hgb 11.9 (10.1-14.3) gm/dl Hct 36.0 (30.3-42.9) % Plt Count 321 (140-440) K/mm3 Lymph # 3.9 (1.2-5.4) K/mm3 [place] # 0.4 (0.0-0.8) K/mm3 Eos # 0.1 (0.0-0.4) K/mm3 Baso # 0.1 (0.0-0.1) K/mm3 Comprehensive Metabolic Panel 11/20/17 Range/Units 23:42 Sodium 139 (137-145) mmol/L Potassium 3.9 (3.6-5.0) mmol/L Chloride 97.4 L (98-107) mmol/L Carbon Dioxide 28 (22-30) mmol/L BUN 9 (7-17) mg/dL Creatinine 0.9 (0.7-1.2) mg/dL Glucose 97 (65-100) mg/dL Calcium 9.4 (8.4-10.2) mg/dL - Imaging and Cardiology EKG: report reviewed, image reviewed EKG interpretations - Telemetry EKG Rhythm: Sinus Rhythm - EKG Sinus rhythms and dysrhythmias: sinus rhythm Assessment and Plan S/p lexiscan MPI stress test this AM which was negative. Normal V/Q scan done 11/20. CXR with NAF. BLE duplex with no evidence of DVT/ SVT. Currently stable cardiac status. Pt may discharge home from cardiology standpoint. Recommend follow up in our office with Dr. Martin within 1-2 weeks of hospital discharge ([phone]). The patient has been seen in conjunction with Dr. Martin who agrees with the assessment and plan of care. - Patient Problems (1) Chest pain Current Visit: Yes Status: Acute (2) Hypercoagulable state Current Visit: Yes Status: Chronic (3) History of CVA (cerebrovascular accident) Current Visit: Yes Status: Chronic (4) History of pulmonary embolism Current Visit: Yes Status: Chronic (5) History of DVT (deep vein thrombosis) Current Visit: Yes Status: Chronic (6) Anticoagulated Current Visit: Yes Status: Chronic (7) Obesity Current Visit: Yes Status: Chronic
--- NOTE | 2017-11-21 14:03 | Discharge Summary ---
Providers - Providers Date of Admission: 11/21/17 01:37 Date of discharge: 11/21/17 Attending physician: KORY NUNN 11/21/17 01:37 Consult to Physician [CONS] Routine Comment: Consulting Provider: URIEL KIM Physician Instructions: Reason For Exam: cp, protein c/s def Primary care physician: [employer] Hospitalization Condition: Stable Hospital course: Discharge Diagnosis -Chest pain, atypical, costochondritis most likely Current Visit: Yes Status: Acute - Hypercoagulable state with Protein s and C Current Visit: Yes Status: Chronic -History of CVA (cerebrovascular accident) Current Visit: Yes Status: Chronic -History of pulmonary embolism Current Visit: Yes Status: Chronic -History of DVT (deep vein thrombosis) Current Visit: Yes Status: Chronic -Anticoagulated Current Visit: Yes Status: Chronic -Obesity Current Visit: Yes Status: Chronic -GERD PPI S/p lexiscan MPI stress test this AM which was negative. Normal V/Q scan done 11/20. CXR with NAF. BLE duplex with no evidence of DVT/ SVT. Exam points to fibromyalgia and chronic pain syndrome, [employer] aware used Disposition: DC-01 TO HOME OR SELFCARE Time spent for discharge: 34 min Core Measure Documentation - Palliative Care Palliative Care/ Comfort Measures: Not Applicable - Core Measures Any of the following diagnoses?: history only - VTE Discharge Requirements Deep Vein Thrombosis/Pulmonary Embolism Present on Admission: No Has pt received <5 days of overlap therapy or INR<2.0: No Anticoagulant overlap therapy prescribed at discharge: No Contraindication No Overlap Therapy order at DC: Not Indicated Exam - Constitutional Vitals: Temp Pulse Resp BP Pulse Ox 98.6 F 74 20 136/84 98 11/21/17 04:57 11/21/17 12:53 11/21/17 12:54 11/21/17 11:42 11/21/17 12:54 General appearance: Present: no acute distress - EENT Eyes: Present: PERRL, EOM intact ENT: hearing intact, clear oral mucosa, dentition normal - Neck Neck: Present: supple, normal ROM - Respiratory Respiratory effort: normal Respiratory: bilateral: CTA (reproducible chest wall tenderness, right and left chest wall) - Cardiovascular Rhythm: regular Heart Sounds: Present: S1 & S2 - Extremities Extremities: no ischemia, pulses intact Peripheral Pulses: within normal limits - Abdominal General gastrointestinal: Present: soft, non-tender, non-distended, normal bowel sounds - Integumentary Integumentary: Present: clear, warm, dry - Musculoskeletal Musculoskeletal: strength equal bilaterally - Psychiatric Psychiatric: appropriate mood/affect - Neurologic Neurologic: CNII-XII intact, no focal deficits, moves all extremities Plan Activity: other (no strenous activity until cleared by PCP) Diet: low salt Additional Instructions: call [facility] at [phone] for first available appointment. I will not be doing a FMLA, must see your PCP Follow up with: [facility] [Provider Group] - 7 Days Forms: Work/School Release Form Prescriptions: traZODone [Desyrel] 50 mg PO QHS #30 tablet Hydromorphone HCl [Dilaudid] 4 mg PO Q6H PRN #12 tablet PRN Reason: Pain , Severe (7-10) Ondansetron [Zofran ODT TAB] 4 mg PO Q8HR PRN #20 tab.rapdis PRN Reason: Nausea
[2017-11-21 19:45] VITALS: BP 126/71
[2017-11-21] MEDS ORDERED: PRAVACHOL PO SCH (22:00)
--- NOTE | 2017-11-22 04:07 | Treadmill Report ---
NUCLEAR CARDIAC STRESS TEST INDICATION FOR PROCEDURE: Chest pain. Informed consent was obtained. Vasodilator stress was achieved with the intravenous administration of 0.4 mg of Lexiscan. The baseline electrocardiogram demonstrates normal sinus rhythm and is within normal limits. Following the intravenous administration of Lexiscan, there were no significant ischemic symptoms or significant ischemic repolarization changes. Resting nuclear cardiac imaging was performed 45-60 minutes following the intravenous administration of 10 mCi of technetium-99m Myoview. Subsequently, stress imaging was performed 30-45 minutes following the intravenous administration of 28 mCi of technetium 99m Myoview. Imaging was performed in a 180-degree arc from 45 degrees RUELAS to 45 degrees LPO. After data acquisition and reconstruction, the images were post-processed and reoriented into the vertical long, horizontal long, and horizontal short axis slices. A polar color map of the horizontal short axis slices was generated and reviewed. The rotating planar images reviewed in cinematic format on the computer console. Gated SPECT imaging demonstrates a post-stress left ventricular ejection fraction greater than 75%. Left ventricular segmental wall motion is normal. Myocardial perfusion imaging demonstrates no significant cavity change between stress and rest. No significant stress induced perfusion defects are seen. Lexiscan stress test is clinically and electrocardiographically nonischemic. Nuclear cardiac imaging demonstrates grossly normal left ventricular systolic function with no significant evidence for myocardial ischemia or necrosis. AR# [id number] KENYA/HEBER
== END 2017-11-21 21:35 | disposition home or self-care (01) | DRG 206 ==
LOC: ED 13:34 → 4A 11-21 01:37
PROVIDERS: ADMIT Internal Medicine; ATTEND Internal Medicine
DX: M94.0 Chondrocostal junction syndrome [Tietze] (principal); D68.59 Other primary thrombophilia; E66.9 Obesity, unspecified; K21.9 Gastro-esophageal reflux disease without esophagitis; M79.7 Fibromyalgia; G89.4 Chronic pain syndrome; I25.10 Atherosclerotic heart disease of native coronary artery without angina pectoris; I10 Essential (primary) hypertension; Z91.041 Radiographic dye allergy status; Z86.73 Personal history of transient ischemic attack (TIA), and cerebral infarction without residual deficits; Z86.711 Personal history of pulmonary embolism; Z86.718 Personal history of other venous thrombosis and embolism; Z79.01 Long term (current) use of anticoagulants; Z68.37 Body mass index [BMI] 37.0-37.9, adult; Z88.5 Allergy status to narcotic agent; Z91.013 Allergy to seafood; Z79.899 Other long term (current) drug therapy; Z90.710 Acquired absence of both cervix and uterus; Z98.51 Tubal ligation status; Z82.49 Family history of ischemic heart disease and other diseases of the circulatory system; I25.2 Old myocardial infarction
CPT/HCPCS: 36415; 71046; 78452; 78582; 80048; 82550; 82553; 83880; 84484; 85025; 93005; 93010; 93017; 93970; A9502; A9540; A9558; J1200; J1650; J2270; J2405; J2785

== ENCOUNTER 2018-06-16 11:45 | Emergency (ER) | payer SELFPAY ==
--- NOTE | 2018-06-16 12:00 | Emergency Department Report ---
Blank Doc - Documentation Documentation: This is a 42-year-old female that presents with midsternum chest pain, SOB and right arm pain. Patient denies any radiation of CP. History of PE/DVTs. PMH: [place], Stroke, HTN, PE, DVT This initial assessment diagnostic orders/clinical plan/treatment(s) is/are subject to change based on patient's health status, clinical progression and re- assessment by fellow clinical providers in the ED. Further treatment and workup at subsequent clinical providers discretion. Patient/guardians urged not to elope from ED s their condition may be serious if not clinically assessed and managed. Initial orders include: 1-Patient sent to MAIN ED for further evaluation and treatment 2- Labs 3- Doppler US Right arm
[2018-06-16 13:53] LABS: Basophils % (Auto) 0.7 % (0.0-1.8); Eosinophils % (Auto) 0.9 % (0.0-4.3); Hematocrit 35.6 % (30.3-42.9); Hemoglobin 11.5 gm/dl (10.1-14.3); Lymphocytes # (Auto) 2.1 K/mm3 (1.2-5.4); Lymphocytes % (Auto) 44.9 % (13.4-35.0); Mean Corpuscular HGB Conc 32 % (30-34); Mean Corpuscular Volume 85 fl (79-97); Monocytes # (Auto) 0.2 K/mm3 (0.0-0.8); Platelet Count 287 K/mm3 (140-440); Red Blood Count 4.21 M/mm3 (3.65-5.03)
[2018-06-16 13:59] LABS: INR 0.95 (0.87-1.13)
[2018-06-16 14:00] LABS: Partial Thromboplastin Time 23.9 Sec. (24.2-36.6)
[2018-06-16 14:03] LABS: Alanine Aminotransferase 12 units/L (7-56); BUN/Creatinine Ratio 16; Blood Urea Nitrogen 11 mg/dL (7-17); Calcium 9.4 mg/dL (8.4-10.2); Hemolysis Index 69
--- NOTE | 2018-06-16 14:15 | Vascular Lab Report ---
FINAL REPORT EXAM: VL VENOUS DUPLEX UE RT HISTORY: right arm pain and swelling TECHNIQUE: Grayscale and color and spectral Doppler ultrasound imaging of the right upper extremity was performed for the purposes of assessing for deep venous thrombosis. PRIORS: None. FINDINGS: No evidence of deep venous thrombosis is seen within the right upper extremity venous system. Normal compression and color flow is seen throughout the venous system of the right upper extremity. IMPRESSION: Negative for right upper extremity deep venous thrombosis.
--- NOTE | 2018-06-16 14:53 | XRay Report ---
FINAL REPORT EXAM: XR CHEST ROUTINE 2V HISTORY: Chest Pain TECHNIQUE: Frontal and lateral chest radiographs. PRIORS: 02/01/2018. FINDINGS: The cardiomediastinal silhouette is normal. No focal consolidation. No pleural effusion. No pneumothorax. No acute osseous abnormality. IMPRESSION: No acute cardiopulmonary process.
--- NOTE | 2018-06-16 16:15 | Emergency Department Report ---
ED Chest Pain HPI - General Chief Complaint: Chest Pain Stated Complaint: (R) ARM SWELLING/SUNIL/CHEST PAIN Time Seen by Provider: 06/16/18 11:55 Source: patient Mode of arrival: Ambulatory Limitations: No Limitations - History of Present Illness Initial Comments: 42-year-old -[place] female presents to the emergency department with complaint of right arm swelling that started this morning and also some right upper chest intermittent pains. She denies any shortness of breath, fever, back pain, nausea, vomiting or diaphoresis. 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 She takes Lovenox twice daily and compliantly. The patient was here in November of last year and had a negative stress test at that time. She has not taken anything for her symptoms prior to presentation. No recent travel or sick contacts at home. There are no known aggravating or alleviating factors of the chest discomfort and the right arm swelling is consistent. Severity scale (0 -10): 10 - Related Data Home Medications Medication Instructions Recorded Confirmed Last Taken RX: Esomeprazole Magnesium [NexIUM] 40 mg PO DAILY 11/02/14 02/02/18 1 Day Ago ~02/01/18 RX: Enoxaparin [Lovenox] 1 each SQ BID 11/14/16 02/02/18 1 Day Ago ~02/01/18 RX: Clonidine HCl [Catapres] 0.3 mg PO QHS 02/02/18 02/02/18 1 Day Ago ~02/01/18 RX: Folic Acid [Folvite] 1 mg PO QDAY 02/02/18 02/02/18 1 Day Ago ~02/01/18 Previous Rx's Medication Instructions Recorded Last Taken Type RX: Simvastatin (Nf) [Zocor TAB] 20 mg PO QHS #30 tablet 11/16/16 1 Day Ago Rx ~02/01/18 RX: Hydromorphone HCl [Dilaudid] 4 mg PO Q6H PRN #12 tablet 11/21/17 3 Months Ago Rx ~11/02/17 RX: Ondansetron [Zofran ODT TAB] 4 mg PO Q8HR PRN #20 tab.rapdis 11/21/17 3 Months Ago Rx ~11/02/17 RX: diphenhydrAMINE [Benadryl CAP] 50 mg PO Q4H PRN #10 11/21/17 3 Months Ago Rx ~11/02/17 RX: traZODone [Desyrel] 50 mg PO QHS #30 tablet 11/21/17 1 Day Ago Rx ~02/01/18 Allergies Allergy/AdvReac Type Severity Reaction Status Date / Time acetaminophen [From Tylenol] Allergy Shortness Verified 02/01/18 17:18 of Breath blue dye Allergy Unknown Verified 02/01/18 17:18 hydrocodone bitartrate Allergy Unknown Verified 02/01/18 17:18 [From Lortab] NSAIDS (Non-Steroidal Allergy Unknown Verified 02/01/18 17:18 Anti-Inflamma oxycodone HCl [From Percocet] Allergy Unknown Verified 02/01/18 17:18 shellfish derived Allergy Unknown Verified 02/01/18 17:18 tramadol Allergy Unknown Verified 02/01/18 17:18 tramadol HCl [From Ultram] Allergy Unknown Verified 02/01/18 17:18 iv dye Allergy Itching Uncoded 08/14/17 13:33 Heart Score - HEART Score History: Slightly suspicious EKG: Normal Age: < 45 Risk factors: 1-2 risk factors Troponin: < normal limit HEART Score: 1 - Critical Actions Critical Actions: 0-3 pts:0.9-1.7%risk of adverse cardiac event.Candidate for discharge ED Review of Systems ROS: Stated complaint: (R) ARM SWELLING/SUNIL/CHEST PAIN Other details as noted in HPI Comment: All other systems reviewed and negative Constitutional: denies: chills, fever Eyes: denies: eye pain, vision change ENT: denies: ear pain, throat pain Respiratory: denies: cough, shortness of breath Cardiovascular: chest pain, edema (RUE) Gastrointestinal: denies: abdominal pain, vomiting Genitourinary: denies: urgency, dysuria Musculoskeletal: denies: back pain, arthralgia Skin: denies: rash, lesions Neurological: denies: headache, weakness ED Past Medical Hx - Past Medical History Previous Medical History?: Yes Hx Hypertension: Yes Hx CVA: Yes (TIA, 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 June 2017 PE - Surgical History Past Surgical History?: Yes Additional Surgical History: tubal ligation. endometrial ablation,hysterectomy, First right Rib r/t PE, - Social History Smoking Status: Never Smoker Substance Use Type: None - Medications Home Medications: Home Medications Medication Instructions Recorded Confirmed Last Taken Type RX: Esomeprazole Magnesium [NexIUM] 40 mg PO DAILY 11/02/14 02/02/18 1 Day Ago History ~02/01/18 RX: Enoxaparin [Lovenox] 1 each SQ BID 11/14/16 02/02/18 1 Day Ago History ~02/01/18 RX: Simvastatin (Nf) [Zocor TAB] 20 mg PO QHS #30 tablet 11/16/16 02/02/18 1 Day Ago Rx ~02/01/18 RX: Hydromorphone HCl [Dilaudid] 4 mg PO Q6H PRN #12 tablet 11/21/17 02/02/18 3 Months Ago Rx ~11/02/17 RX: Ondansetron [Zofran ODT TAB] 4 mg PO Q8HR PRN #20 tab.rapdis 11/21/17 02/02/18 3 Months Ago Rx ~11/02/17 RX: diphenhydrAMINE [Benadryl CAP] 50 mg PO Q4H PRN #10 11/21/17 02/02/18 3 Months Ago Rx ~11/02/17 RX: traZODone [Desyrel] 50 mg PO QHS #30 tablet 11/21/17 02/02/18 1 Day Ago Rx ~02/01/18 RX: Clonidine HCl [Catapres] 0.3 mg PO QHS 02/02/18 02/02/18 1 Day Ago History ~02/01/18 RX: Folic Acid [Folvite] 1 mg PO QDAY 02/02/18 02/02/18 1 Day Ago History ~02/01/18 ED Physical Exam - General Limitations: No Limitations - Other Other exam information: GENERAL: The patient is well-developed well-nourished. HEENT: Normocephalic. Atraumatic. Patient has moist mucous membranes. EYES: Extraocular motions are intact. Pupils are equal and reactive to light bilaterally. NECK: Supple. Trachea is midline. CHEST/LUNGS: Clear to auscultation. There is no respiratory distress noted. HEART/CARDIOVASCULAR: Regular. There is no tachycardia. There is no obvious murmur. ABDOMEN: Abdomen is soft, nontender. Patient has normal bowel sounds. There is no abdominal distention. SKIN: Skin is warm and dry. There is nonpitting swelling of the right upper ext remity when compared to the left. No erythema, rash, lesions, warmth or fluctuance. NEURO: The patient is awake, alert, and oriented. The patient is cooperative. The patient has no focal neurologic deficits. The patient has normal speech. MUSCULOSKELETAL: There is no tenderness or deformity. There is no evidence of acute injury. ED Course Vital Signs 06/16/18 06/16/18 06/16/18 12:01 17:01 17:43 Temperature 97.8 F Pulse Rate 84 Respiratory 16 14 Rate Blood Pressure 128/81 Blood Pressure 136/88 [Left] O2 Sat by Pulse 100 100 Oximetry 06/16/18 06/16/18 06/16/18 17:45 18:01 18:15 Temperature Pulse Rate 69 64 71 Respiratory 16 12 15 Rate Blood Pressure 127/84 128/90 140/86 Blood Pressure [Left] O2 Sat by Pulse 100 100 100 Oximetry 06/16/18 06/16/18 06/16/18 18:31 18:45 19:30 Temperature Pulse Rate 91 H 74 62 Respiratory 15 19 18 Rate Blood Pressure 146/96 146/96 Blood Pressure 146/78 [Left] O2 Sat by Pulse 100 100 Oximetry - EJ/Peripheral Line Neck R Time Out Performed: Yes Indications: nurses unable to establis Skin Cleansed in Sterile Fashion: Yes Size: 20 Dressing Placed: Tegaderm, tape Patient Tolerated Procedure: well ELLIOTT score - Elliott Score Age > 65: (0) No Aspirin use within the Past 7 Days: (0) No 3 or more CAD Risk Factors: (0) No 2 or more Angina events in past 24 hrs: (1) Yes (If pain is considered angina) Known CAD with more than 50% Stenosis: (0) No Elevated Cardiac Markers: (0) No ST Deviation Greater than 0.5mm: (0) No ELLIOTT Score: 1 ED Medical Decision Making - Lab Data Result diagrams: 06/16/18 13:08 06/16/18 13:08 - EKG Data -: EKG Interpreted by Me EKG shows normal: sinus rhythm, axis, intervals, QRS complexes, ST-T waves Rate: normal - EKG Data When compared to previous EKG there are: previous EKG unavailable Interpretation: normal EKG - Radiology Data Radiology results: report reviewed, image reviewed interpreted by me: Chest x-ray does not show any pneumothorax, pleural effusion, pneumonia or obvious focal consolidation. EXAM: VL VENOUS DUPLEX UE RT HISTORY: right arm pain and swelling TECHNIQUE: Grayscale and color and spectral Doppler ultrasound imaging of the right upper extremity was performed for the purposes of assessing for deep venous thrombosis. PRIORS: None. FINDINGS: No evidence of deep venous thrombosis is seen within the right upper extremity venous system. Normal compression and color flow is seen throughout the venous system of the right upper extremity. IMPRESSION: Negative for right upper extremity deep venous thrombosis. Transcribed By: MG Dictated By: CHACHO KRUSE MD Electronically Authenticated By: CHACHO KRUSE MD Signed Date/Time: 06/16/18 1415 PROCEDURE: Nuclear medicine ventilation and perfusion lung scan. TECHNIQUE: Ventilation imaging was done in the posterior projection using 10.2 millicuries of xenon 133 gas. Perfusion imaging was done in multiple projections using 5.2 millicuries of technetium 99 M maa. HISTORY: Chest pain, elevated D-dimer. COMPARISON: Comparison chest radiograph 06/16/2018. FINDINGS: There is symmetrical, homogeneous ventilation bilaterally. There is no trapping of xenon gas during the washout phase of the study. The perfusion images are also homogeneous bilaterally. There are no perfusion abnormalities identified. The lung scan is normal and carries an extremely low probability of pulmonary embolism. IMPRESSION: Normal lung scan. Transcribed By: [facility] Dictated By: RANDELL EDWARDS MD Electronically Authenticated By: RANDELL EDWARDS MD Signed Date/Time: 06/16/18 1811 - Medical Decision Making This patient presents to the emergency department with complaint of right arm swelling and discomfort and some right upper chest or chest wall pain. EKG did not show any signs of ST elevation AL or dysrhythmia. Chest x-ray did not show any pleural effusions, pneumonia, pneumothorax, focal consolidation, or any other acute process. Patient's labs were mostly unremarkable except for a slightly elevated and equivocal d-dimer. A right upper extremity venous Doppler was done that was negative for any DVT. A ventilation/perfusion scan was done that was a normal lung scan and negative for pulmonary embolism. The rest of the patient's labs were unremarkable including negative troponins 3. Vital signs stable throughout her ED course. She was reevaluated multiple times with multiple hours and is improved. She still has the right upper extremity swelling and slight discomfort but there is no further chest discomfort. The patient has had recent cardiac workup including a stress test in November and echocardiogram in January. For all these reasons I feel that the patient is safe for discharge home at this time. She's been given referrals for primary care, hematology and cardiology. She will return to the ER with any return of her chest pain, worsening of her symptoms, with any acute distress. - Differential Diagnosis DVT, PE, AL, costochondritis, GERD Critical Care Time: No Critical care attestation.: If time is entered above; I have spent that time in minutes in the direct care of this critically ill patient, excluding procedure time. ED Disposition Clinical Impression: Swelling of right upper extremity Chest pain Qualifiers: Chest pain type: unspecified Qualified Code(s): R07.9 - Chest pain, unspecified Disposition: DC- TO HOME OR SELFCARE Is pt being admited?: No Condition: Stable Instructions: Chest Pain (ED) Additional Instructions: I am giving him a referral for a local supervisor lace tearing, Dr. Lion, and a local liquefier, Dr. Kim. I have also given a referral for a primary care physician and clinic. Return to the emergency Department with any worsening of your symptoms, return of your chest pain, shortness of breath, or any acute distress. You can use elevation, compression and ice for the arm swelling. Referrals: [facility] [Outside] - 2-3 Days URIEL KIM MD [Staff Physician] - 2-3 Days BRIAN MONTES DE OCA MD [Staff Physician] - 2-3 Days TERRI OLIVAS MD [Staff Physician] - 2-3 Days
[2018-06-16] MEDS ORDERED: BENADRYL IV ONE (17:51)
[2018-06-16] MEDS ORDERED: MORPHINE IV ONE (17:51)
--- NOTE | 2018-06-16 18:11 | Nuclear Medicine Report ---
FINAL REPORT PROCEDURE: Nuclear medicine ventilation and perfusion lung scan. TECHNIQUE: Ventilation imaging was done in the posterior projection using 10.2 millicuries of xenon 133 gas. Perfusion imaging was done in multiple projections using 5.2 millicuries of technetium 99 M maa. HISTORY: Chest pain, elevated D-dimer. COMPARISON: Comparison chest radiograph 06/16/2018. FINDINGS: There is symmetrical, homogeneous ventilation bilaterally. There is no trapping of xenon gas during t he washout phase of the study. The perfusion images are also homogeneous bilaterally. There are no pe rfusion abnormalities identified. The lung scan is normal and carries an extremely low probability of pulmonary embolism. IMPRESSION: Normal lung scan.
[2018-06-16 19:51] VITALS: BP 146/78
== END 2018-06-16 19:30 | disposition home or self-care (01) ==
LOC: ED 11:45
DX: R07.89 Other chest pain (principal); R22.31 Localized swelling, mass and lump, right upper limb; I10 Essential (primary) hypertension; I25.2 Old myocardial infarction; Z86.73 Personal history of transient ischemic attack (TIA), and cerebral infarction without residual deficits; Z86.718 Personal history of other venous thrombosis and embolism; Z86.711 Personal history of pulmonary embolism; Z98.51 Tubal ligation status; Z90.710 Acquired absence of both cervix and uterus; Z88.6 Allergy status to analgesic agent; Z91.041 Radiographic dye allergy status; Z88.5 Allergy status to narcotic agent; Z91.013 Allergy to seafood
CPT/HCPCS: 36415; 71046; 78582; 80053; 84484; 84703; 85025; 85379; 85610; 85730; 93005; 93010; 93971; 96374; 96375; 99285; A9540; A9558; J1200; J2270

== ENCOUNTER 2018-08-09 14:15 | Emergency (ER) | payer OTHER ==
--- NOTE | 2018-08-09 14:26 | Emergency Department Report ---
Chief Complaint: Extremity Problem,Nontraumatic Stated Complaint: RT SIDE SWELLING/HBP/PAIN Time Seen by Provider: 08/09/18 14:21 - HPI History of Present Illness: pt has right UE edema that began this morning hx of protein C & S is on lovenox hx of PE hx of thrombosis in the BLE did not miss dose of lovenox has had thrombosis despite therapy previously heme/onc is in [place], has not seen in 3 weeks MSE screening note: Focused history and physical exam performed. Due to findings the following was ordered: US of the RUE ED Disposition for MSE Condition: Stable
--- NOTE | 2018-08-09 16:25 | Vascular Lab Report ---
PROCEDURE: VL VENOUS DUPLEX UE RT TECHNIQUE: Duplex Doppler ultrasound of the right arm venous system HISTORY: hx of protein c/s, RUE edema COMPARISONS: None FINDINGS: Normal compressibility, vascular patency, and augmentation are present diffusely throughout the visua lized portion of the deep veins. No abnormal intraluminal echoes are visualized to suggest deep vein thrombus. IMPRESSION: No sonographic evidence of right arm DVT This document is electronically signed by Gerardo Newsome MD., August 09 2018 04:23:11 PM ET
[2018-08-09] MEDS ORDERED: MORPHINE IM ONE (16:53)
[2018-08-09] MEDS ORDERED: ZOFRAN IM ONE (16:53)
--- NOTE | 2018-08-09 17:15 | Emergency Department Report ---
HPI - General Chief Complaint: Extremity Problem,Nontraumatic Time Seen by Provider: 08/09/18 14:21 - HPI HPI: Room 26 The patient is a 43-year-old female presenting with a chief complaint right upper extremity swelling and pain. Patient states she has a history of protein C and protein S deficiency with a history of frequent DVTs. The patient states she is currently on Lovenox and has been compliant. The patient states today she noticed pain and swelling of the right upper extremity. Patient denies history of trauma. Location: Right upper extremity Duration: 1 day Quality: Pain Severity: Moderate Modifying factors: [see above] Context: [see above] Mode of transportation: [not driving] ED Past Medical Hx - Past Medical History Previous Medical History?: Yes Hx Hypertension: Yes Hx CVA: Yes (TIA, [id number]-sided weakness) Hx Heart Attack/AMI: Yes (2011) Hx Deep Vein Thrombosis: Yes Hx Pulmonary Embolism: Yes Additional medical history: Protein c and s Def (on Lovenox) dvts. June 2017 PE - Surgical History Past Surgical History?: Yes Additional Surgical History: tubal ligation. endometrial ablation,hysterectomy, First right Rib r/t PE, - Family History Family history: no significant - Social History Smoking Status: Never Smoker Substance Use Type: None (denies illicit drug use) - Medications Home Medications: Home Medications Medication Instructions Recorded Confirmed Last Taken Type Esomeprazole Magnesium [NexIUM] 40 mg PO DAILY 11/02/14 02/02/18 1 Day Ago History ~02/01/18 Enoxaparin [Lovenox] 1 each SQ BID 11/14/16 02/02/18 1 Day Ago History ~02/01/18 Simvastatin (Nf) [Zocor TAB] 20 mg PO QHS #30 tablet 11/16/16 02/02/18 1 Day Ago Rx ~02/01/18 Hydromorphone HCl [Dilaudid] 4 mg PO Q6H PRN #12 tablet 11/21/17 02/02/18 3 Months Ago Rx ~11/02/17 Ondansetron [Zofran ODT TAB] 4 mg PO Q8HR PRN #20 tab.rapdis 11/21/17 02/02/18 3 Months Ago Rx ~11/02/17 diphenhydrAMINE [Benadryl CAP] 50 mg PO Q4H PRN #10 11/21/17 02/02/18 3 Months Ago Rx ~11/02/17 traZODone [Desyrel] 50 mg PO QHS #30 tablet 11/21/17 02/02/18 1 Day Ago Rx ~02/01/18 Clonidine HCl [Catapres] 0.3 mg PO QHS 02/02/18 02/02/18 1 Day Ago History ~02/01/18 Folic Acid [Folvite] 1 mg PO QDAY 02/02/18 02/02/18 1 Day Ago History ~02/01/18 Cyclobenzaprine [Flexeril] 10 mg PO TID PRN #10 tablet 08/09/18 Unknown Rx ED Review of Systems ROS: Stated complaint: RT SIDE SWELLING/HBP/PAIN Other details as noted in HPI Constitutional: no symptoms reported Eyes: denies: eye pain ENT: denies: throat pain Respiratory: no symptoms reported Cardiovascular: denies: chest pain Endocrine: no symptoms reported Gastrointestinal: denies: abdominal pain Genitourinary: denies: dysuria Musculoskeletal: myalgia Neurological: denies: headache Physical Exam - Physical Exam Vital Signs: Vital Signs 08/09/18 14:22 Temperature 98 F Pulse Rate 85 Respiratory 16 Rate Blood Pressure 140/96 O2 Sat by Pulse 100 Oximetry Physical Exam: GENERAL: The patient is well-developed well-nourished female lying on stretcher not appearing to be in acute distress. [] HEENT: Normocephalic. Atraumatic. Extraocular motions are intact. Patient has moist mucous membranes. NECK: Supple. Trachea in midline CHEST/LUNGS: Clear to auscultation. There is no respiratory distress noted. HEART/CARDIOVASCULAR: Regular. There is no tachycardia. There is no gallop rub or murmur. 2+ right radial pulse ABDOMEN: Abdomen is soft, nontender. Patient has normal bowel sounds. There is no abdominal distention. SKIN: There is no rash. There is no edema. There is no diaphoresis. NEURO: The patient is awake, alert, and oriented. The patient is cooperative. The patient has no focal neurologic deficits. The patient has normal speech. Cranial nerves II through XII grossly intact, no drift MUSCULOSKELETAL: There is no evidence of acute injury. ED Course Vital Signs 08/09/18 14:22 Temperature 98 F Pulse Rate 85 Respiratory 16 Rate Blood Pressure 140/96 O2 Sat by Pulse 100 Oximetry ED Medical Decision Making - Lab Data Result diagrams: 08/09/18 18:10 08/09/18 18:10 Laboratory Tests 08/09/18 08/09/18 08/09/18 18:10 18:10 18:10 WBC 13.5 H RBC 3.92 Hgb 10.8 Hct 32.0 MCV 82 MCH 28 MCHC 34 RDW 15.1 Plt Count 207 Add Manual Diff Complete Total Counted 100 Seg Neuts % (Manual) 62.0 Band Neutrophils % 0 Lymphocytes % (Manual) 31.0 Reactive Lymphs % (Man) 0 Monocytes % (Manual) 6.0 Eosinophils % (Manual) 1.0 Basophils % (Manual) 0 Metamyelocytes % 0 Myelocytes % 0 Promyelocytes % 0 Blast Cells % 0 Nucleated RBC % Not Reportable Seg Neutrophils # Man 0.0 L Band Neutrophils # 0.0 Lymphocytes # (Manual) 0.0 L Abs React Lymphs (Man) 0.0 Monocytes # (Manual) 0.0 Eosinophils # (Manual) 0.0 Basophils # (Manual) 0.0 Metamyelocytes # 0.0 Myelocytes # 0.0 Promyelocytes # 0.0 Blast Cells # 0.0 WBC Morphology Not Reportable Hypersegmented Neuts Not Reportable Hyposegmented Neuts Not Reportable Hypogranular Neuts Not Reportable Smudge Cells Not Reportable Toxic Granulation Not Reportable Toxic Vacuolation Not Reportable Dohle Bodies Not Reportable Pelger-Huet Anomaly Not Reportable Christina Rods Not Reportable Platelet Estimate Consistent w auto Clumped Platelets Not Reportable Plt Clumps, EDTA Not Reportable Large Platelets Not Reportable Giant Platelets Not Reportable Platelet Satelliting Not Reportable Plt Morphology Comment Not Reportable RBC Morphology Not Reportable Dimorphic RBCs Not Reportable Polychromasia Not Reportable Hypochromasia Not Reportable Poikilocytosis Not Reportable Anisocytosis 1+ Microcytosis Not Reportable Macrocytosis Not Reportable Spherocytes Not Reportable Pappenheimer Bodies Not Reportable Sickle Cells Not Reportable Target Cells Not Reportable Tear Drop Cells Not Reportable Ovalocytes Not Reportable Helmet Cells Not Reportable [place] Bodies Not Reportable [place]rie Rings Not Reportable Jose Cells Not Reportable Bite Cells Not Reportable Crenated Cell Not Reportable Elliptocytes Not Reportable Acanthocytes (Spur) Not Reportable Rouleaux Not Reportable Hemoglobin C Crystals Not Reportable Schistocytes Not Reportable Malaria parasites Not Reportable Allen Bodies Not Reportable Hem Pathologist Commnt No Sodium 135 L Potassium 4.9 Chloride 103.6 Carbon Dioxide 22 Anion Gap 14 BUN 9 Creatinine 0.9 Estimated GFR > 60 BUN/Creatinine Ratio 10 Glucose 94 Calcium 8.5 TSH 0.916 Free T4 0.88 - Radiology Data Radiology results: report reviewed (right upper extremity Doppler), image reviewed (right upper extremity Doppler) [facility] [address] [place] [address] Vascular Lab Report Signed Patient: ANTONIO JORDAN MR#: [id number] : 1975 Acct:[id number] Age/Sex: 43 / F ADM Date: 08/09/18 Loc: ED Attending Dr: Ordering Physician: NADJA GUZMAN Date of Service: 08/09/18 Procedure(s): VL venous duplex UE RT Accession Number(s): [id number] cc: NADJA GUZMAN PROCEDURE: VL VENOUS DUPLEX UE RT TECHNIQUE: Duplex Doppler ultrasound of the right arm venous system HISTORY: hx of protein c/s, RUE edema COMPARISONS: None FINDINGS: Normal compressibility, vascular patency, and augmentation are present diffusely throughout the visualized portion of the deep veins. No abnormal intraluminal echoes are visualized to suggest deep vein thrombus. IMPRESSION: No sonographic evidence of right arm DVT This document is electronically signed by Gerardo Newsome MD., August 09 2018 04:23:11 PM ET Transcribed By: JACOB Dictated By: GERARDO NEWSOME MD Electronically Authenticated By: GERARDO NEWSOME MD Signed Date/Time: 08/09/18 1625 DD/ 1427 TD/TT: 08/09/18 1557 - Differential Diagnosis DVT, bursitis Critical care attestation.: If time is entered above; I have spent that time in minutes in the direct care of this critically ill patient, excluding procedure time. ED Disposition Clinical Impression: Right arm pain Disposition: DC-01 TO HOME OR SELFCARE Is pt being admited?: No Does the pt Need Aspirin: No Condition: Stable Additional Instructions: Return to the emergency department immediately should you develop worsening symptoms, fever, inability to tolerate food or liquid or any other concerns. Prescriptions: Cyclobenzaprine [Flexeril] 10 mg PO TID PRN #10 tablet PRN Reason: Muscle Spasm Referrals: [facility] [Other] - 3-5 Days TERRY VILLALOBOS DO [Staff Physician] - [facility] (Dr Villalobos is a scanning clerk. Please follow up with him to be established as a patient) Time of Disposition: 19:25
[2018-08-09] MEDS ORDERED: XYLOCAINE 1%/ EPI 1:100,000 INFILTRATI ONE (18:01)
[2018-08-09 18:38] LABS: Hemoglobin 10.8 gm/dl (10.1-14.3); Mean Corpuscular HGB Conc 34 % (30-34); Mean Corpuscular Volume 82 fl (79-97); Red Blood Count 3.92 M/mm3 (3.65-5.03); Red Cell Distribution Width 15.1 % (13.2-15.2)
[2018-08-09 18:49] LABS: BUN/Creatinine Ratio 10; Blood Urea Nitrogen 9 mg/dL (7-17); Calcium 8.5 mg/dL (8.4-10.2); Hemolysis Index 186
[2018-08-09 18:59] LABS: Free T4 (Free Thyroxine) 0.88 ng/dL (0.76-1.46)
[2018-08-09] MEDS ORDERED: XYLOCAINE 1%/ EPI 1:100,000 INFILTRATI NR (19:00)
[2018-08-09 19:08] LABS: Basophils % (Manual) 0 % (0.0-1.8); Total Cells Counted 100
[2018-08-09 19:09] LABS: Anisocytosis 1+; Platelet Estimate Consistent w Auto
[2018-08-09 19:10] LABS: Platelet Count 207 K/mm3 (140-440)
[2018-08-09 19:36] VITALS: BP 128/82
== END 2018-08-09 19:40 | disposition home or self-care (01) ==
LOC: ED 14:15
DX: M79.601 Pain in right arm (principal); M79.89 Other specified soft tissue disorders; I10 Essential (primary) hypertension; Z86.73 Personal history of transient ischemic attack (TIA), and cerebral infarction without residual deficits; Z86.718 Personal history of other venous thrombosis and embolism; Z86.711 Personal history of pulmonary embolism; I25.2 Old myocardial infarction; Z98.51 Tubal ligation status; Z88.6 Allergy status to analgesic agent; Z91.041 Radiographic dye allergy status; Z88.5 Allergy status to narcotic agent
CPT/HCPCS: 36415; 80048; 84439; 84443; 85007; 85025

== ENCOUNTER 2019-05-09 08:53 | Emergency (ER) | payer SELFPAY ==
[2019-05-09 09:05] VITALS: BP 140/100
--- NOTE | 2019-05-09 11:14 | Emergency Department Report ---
- General Chief Complaint: Upper Respiratory Infection Stated Complaint: CHEST PAIN/SUNIL/VOMIT/BODYACHE Time Seen by Provider: 05/09/19 10:28 Source: patient Mode of arrival: Ambulatory Limitations: No Limitations - History of Present Illness Initial Comments: This is a 43-year-old female complaining of body aches chills productive cough 3 days sore throat and congestion. States her chest feels like fire when she coughs. Patient denies nausea vomiting and diarrhea. She has a history of protein C&S deficiency. She currently takes Lovenox BID injections and has been compliant. MD Complaint: fever, cough, sore throat, nasal congestion -: days(s) (3) Severity: moderate Consistency: constant Worsens With: deep breaths Associated Symptoms: fever, chills, myalgias, rhinorrhea, nasal congestion, cough. denies: chest pain Treatments Prior to Arrival: none - Related Data Home Medications Medication Instructions Recorded Confirmed Last Taken Esomeprazole Magnesium [NexIUM] 40 mg PO DAILY 11/02/14 02/02/18 1 Day Ago ~02/01/18 Enoxaparin 1 each SQ BID 11/14/16 02/02/18 1 Day Ago ~02/01/18 Clonidine HCl [Catapres] 0.3 mg PO QHS 02/02/18 02/02/18 1 Day Ago ~02/01/18 Folic Acid [Folvite] 1 mg PO QDAY 02/02/18 02/02/18 1 Day Ago ~02/01/18 Previous Rx's Medication Instructions Recorded Last Taken Type Simvastatin (Nf) [Zocor TAB] 20 mg PO QHS #30 tablet 11/16/16 1 Day Ago Rx ~02/01/18 Hydromorphone HCl [Dilaudid] 4 mg PO Q6H PRN #12 tablet 11/21/17 3 Months Ago Rx ~11/02/17 Ondansetron [Zofran ODT TAB] 4 mg PO Q8HR PRN #20 tab.rapdis 11/21/17 3 Months Ago Rx ~11/02/17 diphenhydrAMINE [Benadryl CAP] 50 mg PO Q4H PRN #10 11/21/17 3 Months Ago Rx ~11/02/17 traZODone [Desyrel] 50 mg PO QHS #30 tablet 11/21/17 1 Day Ago Rx ~02/01/18 Cyclobenzaprine [Flexeril] 10 mg PO TID PRN #10 tablet 08/09/18 Unknown Rx Allergies Allergy/AdvReac Type Severity Reaction Status Date / Time acetaminophen [From Tylenol] Allergy Shortness Verified 05/09/19 09:06 of Breath blue dye Allergy Unknown Verified 05/09/19 09:06 hydrocodone bitartrate Allergy Unknown Verified 05/09/19 09:06 [From Lortab] NSAIDS (Non-Steroidal Allergy Unknown Verified 05/09/19 09:06 Anti-Inflamma oxycodone HCl [From Percocet] Allergy Unknown Verified 05/09/19 09:06 shellfish derived Allergy Unknown Verified 05/09/19 09:06 tramadol Allergy Unknown Verified 05/09/19 09:06 tramadol HCl [From Ultram] Allergy Unknown Verified 05/09/19 09:06 iv dye Allergy Itching Uncoded 08/14/17 13:33 ED Review of Systems ROS: Stated complaint: CHEST PAIN/SUNIL/VOMIT/BODYACHE Other details as noted in HPI Comment: All other systems reviewed and negative Constitutional: chills, fever, malaise ENT: throat pain Respiratory: cough. denies: SOB with exertion, wheezing Cardiovascular: denies: chest pain, palpitations Gastrointestinal: vomiting. denies: abdominal pain, nausea, constipation Genitourinary: denies: dysuria, hematuria, dyspareunia Musculoskeletal: other (chest hurts with coughing) Skin: denies: rash, lesions Neurological: denies: headache, weakness, numbness, paresthesias, confusion, abnormal gait, vertigo ED Past Medical Hx - Past Medical History Hx Hypertension: Yes Hx CVA: Yes (TIA, [id number]-filru-sided weakness) Hx Heart Attack/AMI: Yes (2011) Hx Congestive Heart Failure: No Hx Diabetes: No Hx Deep Vein Thrombosis: Yes Hx Pulmonary Embolism: Yes Hx Asthma: No Hx COPD: No Additional medical history: Protein c and s Def (on Lovenox) dvts. June 2017 PE - Surgical History Additional Surgical History: tubal ligation. endometrial ablation,hysterectomy, First right Rib r/t PE, - Social History Smoking Status: Never Smoker Substance Use Type: None - Medications Home Medications: Home Medications Medication Instructions Recorded Confirmed Last Taken Type Esomeprazole Magnesium [NexIUM] 40 mg PO DAILY 11/02/14 02/02/18 1 Day Ago History ~02/01/18 Enoxaparin 1 each SQ BID 11/14/16 02/02/18 1 Day Ago History ~02/01/18 Simvastatin (Nf) [Zocor TAB] 20 mg PO QHS #30 tablet 11/16/16 02/02/18 1 Day Ago Rx ~02/01/18 Hydromorphone HCl [Dilaudid] 4 mg PO Q6H PRN #12 tablet 11/21/17 02/02/18 3 Months Ago Rx ~11/02/17 Ondansetron [Zofran ODT TAB] 4 mg PO Q8HR PRN #20 tab.rapdis 11/21/17 02/02/18 3 Months Ago Rx ~11/02/17 diphenhydrAMINE [Benadryl CAP] 50 mg PO Q4H PRN #10 11/21/17 02/02/18 3 Months Ago Rx ~11/02/17 traZODone [Desyrel] 50 mg PO QHS #30 tablet 11/21/17 02/02/18 1 Day Ago Rx ~02/01/18 Clonidine HCl [Catapres] 0.3 mg PO QHS 02/02/18 02/02/18 1 Day Ago History ~02/01/18 Folic Acid [Folvite] 1 mg PO QDAY 02/02/18 02/02/18 1 Day Ago History ~02/01/18 Cyclobenzaprine [Flexeril] 10 mg PO TID PRN #10 tablet 08/09/18 Unknown Rx ED Physical Exam - General Limitations: No Limitations General appearance: alert, in no apparent distress - Head Head exam: Present: atraumatic - Eye Eye exam: Present: normal appearance. Absent: scleral icterus, conjunctival injection - ENT ENT exam: Present: mucous membranes moist, TM's normal bilaterally - Neck Neck exam: Present: normal inspection. Absent: lymphadenopathy - Respiratory Respiratory exam: Present: rhonchi (few scattered rhonci) - Cardiovascular Cardiovascular Exam: Present: regular rate, normal rhythm - GI/Abdominal GI/Abdominal exam: Present: soft. Absent: distended, tenderness, guarding, rebound, rigid, normal bowel sounds - Rectal Rectal exam: Absent: deferred - Extremities Exam Extremities exam: Present: normal inspection, full ROM, normal capillary refill. Absent: pedal edema - Back Exam Back exam: Present: normal inspection - Neurological Exam Neurological exam: Present: alert, oriented X3, normal gait - Skin Skin exam: Present: warm, dry, intact, normal color. Absent: rash ED Course Vital Signs 05/09/19 09:05 Temperature 98.3 F Pulse Rate 92 H Respiratory 14 Rate Blood Pressure 140/100 [Left] O2 Sat by Pulse 98 Oximetry - Reevaluation(s) Reevaluation #1: 05/09/19 13:02 In to see patient to discuss findings, Negative influenza A & B and no acute findings on Chest Xray pt states her body hurts all over she has chest pain when she coughs and it goes to her back and head. Pt now also states she has not been able to eat x 3 days because she's vomiting. Discuss plan to do blood work, iv fluids and zofran for nausea. ED Medical Decision Making - Radiology Data Radiology results: report reviewed CHEST XRAY SUPPORT DEVICES: None. HEART / MEDIASTINUM: No significant abnormality. LUNGS / PLEURA: No significant pulmonary or pleural abnormality. No pn eumothorax. ADDITIONAL FINDINGS: No significant additional findings. IMPRESSION: 1. No acute findings. - Medical Decision Making 43 YO female with c/o flu like symptoms. Cough nasal congestion, chills, bodyaches,. CXR no acute findings Rapid Influenza A & B NEG. Pt not pleased with her care states she called her mother and plans to go see another facility. Pt refused bloodwork, IV fluids and Zofran . Critical care attestation.: If time is entered above; I have spent that time in minutes in the direct care of this critically ill patient, excluding procedure time. ED Disposition Clinical Impression: Viral respiratory illness Disposition: - LEFT AGAINST MED ADVICE Is pt being admited?: No Does the pt Need Aspirin: No Condition: Stable Additional Instructions: Follow up PCP or Return to ER for any worsening symptoms. Referrals: SHADY GALVEZ MD [Primary Care Provider] - 3-5 Days Forms: AMA Form Time of Disposition: 13:07
--- NOTE | 2019-05-09 11:42 | XRay Report ---
CHEST 2 VIEWS INDICATION / CLINICAL INFORMATION: cough. COMPARISON: None available. FINDINGS: SUPPORT DEVICES: None. HEART / MEDIASTINUM: No significant abnormality. LUNGS / PLEURA: No significant pulmonary or pleural abnormality. No pneumothorax. ADDITIONAL FINDINGS: No significant additional findings. IMPRESSION: 1. No acute findings. Signer Name: Jaylen Delgado MD Signed: 05/09/2019 11:38 AM Workstation Name: [id number]
[2019-05-09] MEDS ORDERED: SODIUM CHLORIDE 0.9% 1000 ML 1,000 ML IV ONE (12:59)
[2019-05-09] MEDS ORDERED: ONDANSETRON 4 MG/2 ML INJ IV ONE (13:00)
== END 2019-05-09 13:05 | disposition left against medical advice (07) ==
LOC: ED 08:53
DX: J06.9 Acute upper respiratory infection, unspecified (principal); I10 Essential (primary) hypertension; I25.2 Old myocardial infarction; Z86.73 Personal history of transient ischemic attack (TIA), and cerebral infarction without residual deficits; Z98.51 Tubal ligation status; Z79.899 Other long term (current) drug therapy; Z88.8 Allergy status to other drugs, medicaments and biological substances
CPT/HCPCS: 71046; 87400

== ENCOUNTER 2019-08-25 04:47 | Emergency (ER) | payer SELFPAY ==
[2019-08-25 05:45] LABS: Basophils % (Auto) 0.7 % (0.0-1.8); Eosinophils # (Auto) 0.1 K/mm3 (0.0-0.4); Eosinophils % (Auto) 0.8 % (0.0-4.3); Hematocrit 32.9 % (30.3-42.9); Hemoglobin 10.8 gm/dl (10.1-14.3); Lymphocytes # (Auto) 2.8 K/mm3 (1.2-5.4); Lymphocytes % (Auto) 41.5 % (13.4-35.0); Mean Corpuscular HGB Conc 33 % (30-34); Mean Corpuscular Volume 83 fl (79-97); Monocytes # (Auto) 0.4 K/mm3 (0.0-0.8); Monocytes % (Auto) 5.9 % (0.0-7.3); Platelet Count 288 K/mm3 (140-440); Red Blood Count 3.99 M/mm3 (3.65-5.03); Red Cell Distribution Width 15.1 % (13.2-15.2)
[2019-08-25 06:02] LABS: BUN/Creatinine Ratio 9; Blood Urea Nitrogen 8 mg/dL (7-17); Calcium 9.4 mg/dL (8.4-10.2); Hemolysis Index 0
[2019-08-25] MEDS ORDERED: ONDANSETRON 4 MG/2 ML INJ IV ONE (07:02)
[2019-08-25] MEDS ORDERED: diphenhydrAMINE 50 MG/ML VIAL IV ONE ×2 (07:02→11:15)
[2019-08-25] MEDS ORDERED: MORPHINE 4 MG/1 ML INJ IV ONE ×2 (07:02→11:03)
--- NOTE | 2019-08-25 07:39 | XRay Report ---
CHEST 2 VIEWS INDICATION: sob, hx of pe. COMPARISON: 05/09/2019 FINDINGS: Support devices: None. Heart: Within normal limits. Lungs/pleura: No acute air space or interstitial disease. No pneumothorax. Additional findings: Right axillary lymph node dissection changes are again noted. IMPRESSION: No acute findings. Signer Name: Jose Martinez Jr, MD Signed: 08/25/2019 7:35 AM Workstation Name: [id number]
--- NOTE | 2019-08-25 07:41 | Emergency Department Report ---
ED Shortness of Breath HPI - General Chief Complaint: Extremity Injury, Upper Stated Complaint: ARM SWELLING AND PAIN Time Seen by Provider: 08/25/19 06:41 Source: EMS Mode of arrival: Stretcher Limitations: No Limitations - History of Present Illness Initial Comments: 44-year-old female with a past medical history of protein C&S deficiency of multiple DVTs, pulmonary embolisms, CVA, hypertension, obesity and previous hysterectomy presents to the hospital complains of shortness of breath since yesterday and constant chest pressure. Symptoms worsened tonight while trying to sleep. Patient also reports gradual worsening of upper extremity edema. Patient was diagnosed with right arm DVT June 21 in [place]. She is chronically on Lovenox current dose 100 mg twice daily. She does not have a filter. Patient complains of diffuse right arm swelling and left upper arm swelling and states she typically gets these symptoms when she she has a pulmonary embolism. She also complains of constant dyspnea worse with exertion since yesterday. Patient denies cough or fever. Patient takes morphine chronically at home for pain - Related Data Home Medications Medication Instructions Recorded Confirmed Last Taken Esomeprazole Magnesium [NexIUM] 40 mg PO DAILY 11/02/14 08/25/19 1 Day Ago ~02/01/18 Enoxaparin 1 each SQ BID 11/14/16 08/25/19 1 Day Ago ~02/01/18 Clonidine HCl [Catapres] 0.3 mg PO QHS 02/02/18 08/25/19 1 Day Ago ~02/01/18 Folic Acid [Folvite] 1 mg PO QDAY 02/02/18 08/25/19 1 Day Ago ~02/01/18 Previous Rx's Medication Instructions Recorded Last Taken Type Simvastatin (Nf) [Zocor TAB] 20 mg PO QHS #30 tablet 11/16/16 1 Day Ago Rx ~02/01/18 Hydromorphone HCl [Dilaudid] 4 mg PO Q6H PRN #12 tablet 11/21/17 3 Months Ago Rx ~11/02/17 Ondansetron [Zofran ODT TAB] 4 mg PO Q8HR PRN #20 tab.rapdis 11/21/17 3 Months Ago Rx ~11/02/17 diphenhydrAMINE [Benadryl CAP] 50 mg PO Q4H PRN #10 11/21/17 3 Months Ago Rx ~11/02/17 traZODone [Desyrel] 50 mg PO QHS #30 tablet 11/21/17 1 Day Ago Rx ~02/01/18 Cyclobenzaprine [Flexeril] 10 mg PO TID PRN #10 tablet 08/09/18 Unknown Rx Allergies Allergy/AdvReac Type Severity Reaction Status Date / Time acetaminophen [From Tylenol] Allergy Shortness Verified 05/09/19 09:06 of Breath blue dye Allergy Unknown Verified 05/09/19 09:06 hydrocodone bitartrate Allergy Unknown Verified 05/09/19 09:06 [From Lortab] NSAIDS (Non-Steroidal Allergy Unknown Verified 05/09/19 09:06 Anti-Inflamma oxycodone HCl [From Percocet] Allergy Unknown Verified 05/09/19 09:06 shellfish derived Allergy Unknown Verified 05/09/19 09:06 tramadol Allergy Unknown Verified 05/09/19 09:06 tramadol HCl [From Ultram] Allergy Unknown Verified 05/09/19 09:06 iv dye Allergy Itching Uncoded 08/14/17 13:33 ED Review of Systems ROS: Stated complaint: ARM SWELLING AND PAIN Other details as noted in HPI Comment: All other systems reviewed and negative ED Past Medical Hx - Past Medical History Previous Medical History?: Yes Hx Hypertension: Yes Hx CVA: Yes (TIA, [id number]-vertg-sided weakness) Hx Heart Attack/AMI: Yes (2011) Hx Congestive Heart Failure: No Hx Diabetes: No Hx Deep Vein Thrombosis: Yes Hx Pulmonary Embolism: Yes Hx Asthma: No Hx COPD: No Additional medical history: Protein c and s Def (on Lovenox) dvts. June 2017 P E - Surgical History Past Surgical History?: Yes Additional Surgical History: tubal ligation. endometrial ablation,hysterectomy, First right Rib r/t PE, - Social History Smoking Status: Never Smoker Substance Use Type: None - Medications Home Medications: Home Medications Medication Instructions Recorded Confirmed Last Taken Type Esomeprazole Magnesium [NexIUM] 40 mg PO DAILY 11/02/14 08/25/19 1 Day Ago Hi story ~02/01/18 Enoxaparin 1 each SQ BID 11/14/16 08/25/19 1 Day Ago History ~02/01/18 Simvastatin (Nf) [Zocor TAB] 20 mg PO QHS #30 tablet 11/16/16 08/25/19 1 Day Ago Rx ~02/01/18 Hydromorphone HCl [Dilaudid] 4 mg PO Q6H PRN #12 tablet 11/21/17 08/25/19 3 Months Ago Rx ~11/02/17 Ondansetron [Zofran ODT TAB] 4 mg PO Q8HR PRN #20 tab.rapdis 11/21/17 08/25/19 3 Months Ago Rx ~11/02/17 diphenhydrAMINE [Benadryl CAP] 50 mg PO Q4H PRN #10 11/21/17 08/25/19 3 Months Ago Rx ~11/02/17 traZODone [Desyrel] 50 mg PO QHS #30 tablet 11/21/17 08/25/19 1 Day Ago Rx ~02/01/18 Clonidine HCl [Catapres] 0.3 mg PO QHS 02/02/18 08/25/19 1 Day Ago History ~02/01/18 Folic Acid [Folvite] 1 mg PO QDAY 02/02/18 08/25/19 1 Day Ago History ~02/01/18 Cyclobenzaprine [Flexeril] 10 mg PO TID PRN #10 tablet 08/09/18 08/25/19 Unknown Rx ED Physical Exam - General Limitations: No Limitations - Other Other exam information: General: No acute distress Head: Atraumatic Eyes: normal appearance ENT: Moist mucous membranes Neck: Normal appearance, no midline tenderness Chest: Clear to auscultation bilaterally, diminished without wheezes, rales, or tachypnea CV: Regular rate and rhythm, reproducible anterior chest wall tenderness to palpation Abdomen: Soft, normal bowel sounds, nontender, nondistended, no rebound or guarding Back: Normal inspection Extremity: Diffuse right arm swelling. mild Left upper arm swelling. No warmth or erythema. Neuro: Alert O x 3, no facial asymmetry, speech clear, full range of motion of arms and legs Psych: Appropriate behavior Skin: No rash ED Course Vital Signs 08/25/19 08/25/19 08/25/19 04:59 05:00 05:53 Temperature 98.3 F Pulse Rate 74 78 68 Respiratory 10 L 8 L 19 Rate Blood Pressure Blood Pressure 149/100 [left arm] O2 Sat by Pulse 99 100 Oximetry 08/25/19 08/25/19 08/25/19 06:00 06:30 07:00 Temperature Pulse Rate 76 65 94 H Respiratory 13 19 11 L Rate Blood Pressure 149/100 149/100 Blood Pressure [left arm] O2 Sat by Pulse 98 97 100 Oximetry 08/25/19 08/25/19 08/25/19 07:30 08:00 08:30 Temperature Pulse Rate 79 75 91 H Respiratory 14 17 30 H Rate Blood Pressure 134/98 134/98 143/95 Blood Pressure [left arm] O2 Sat by Pulse 99 98 96 Oximetry 08/25/19 08/25/19 08/25/19 09:00 09:30 10:00 Temperature Pulse Rate 87 90 81 Respiratory 19 17 10 L Rate Blood Pressure 138/92 138/92 118/79 Blood Pressure [left arm] O2 Sat by Pulse 100 94 99 Oximetry 08/25/19 11:00 Temperature Pulse Rate 70 Respiratory 13 Rate Blood Pressure 117/61 Blood Pressure [left arm] O2 Sat by Pulse 98 Oximetry ED Medical Decision Making - Lab Data Result diagrams: 08/25/19 05:22 08/25/19 05:22 Lab Results 08/25/19 08/25/19 08/25/19 Range/Units 05:22 05:22 05:22 WBC 6.9 (4.5-11.0) K/mm3 RBC 3.99 (3.65-5.03) M/mm3 Hgb 10.8 (10.1-14.3) gm/dl Hct 32.9 (30.3-42.9) % MCV 83 (79-97) fl MCH 27 L (28-32) pg MCHC 33 (30-34) % RDW 15.1 (13.2-15.2) % Plt Count 288 (140-440) K/mm3 Lymph % (Auto) 41.5 H (13.4-35.0) % [place] % (Auto) 5.9 (0.0-7.3) % Eos % (Auto) 0.8 (0.0-4.3) % Baso % (Auto) 0.7 (0.0-1.8) % Lymph # 2.8 (1.2-5.4) K/mm3 [place] # 0.4 (0.0-0.8) K/mm3 Eos # 0.1 (0.0-0.4) K/mm3 Baso # 0.0 (0.0-0.1) K/mm3 Seg Neutrophils % 51.1 (40.0-70.0) % Seg Neutrophils # 3.5 (1.8-7.7) K/mm3 D-Dimer 406.10 H (0-234) ng/mlDDU Sodium 137 (137-145) mmol/L Potassium 3.8 (3.6-5.0) mmol/L Chloride 100.6 (98-107) mmol/L Carbon Dioxide 26 (22-30) mmol/L Anion Gap 14 mmol/L BUN 8 (7-17) mg/dL Creatinine 0.9 (0.7-1.2) mg/dL Estimated GFR > 60 ml/min BUN/Creatinine Ratio 9 % Glucose 96 (65-100) mg/dL POC Glucose (70-105) Calcium 9.4 (8.4-10.2) mg/dL Troponin T (0.00-0.029) ng/mL 08/25/19 08/25/19 Range/Units 09:48 Unknown WBC (4.5-11.0) K/mm3 RBC (3.65-5.03) M/mm3 Hgb (10.1-14.3) gm/dl Hct (30.3-42.9) % MCV (79-97) fl MCH (28-32) pg MCHC (30-34) % RDW (13.2-15.2) % Plt Count (140-440) K/mm3 Lymph % (Auto) (13.4-35.0) % [place] % (Auto) (0.0-7.3) % Eos % (Auto) (0.0-4.3) % Baso % (Auto) (0.0-1.8) % Lymph # (1.2-5.4) K/mm3 [place] # (0.0-0.8) K/mm3 Eos # (0.0-0.4) K/mm3 Baso # (0.0-0.1) K/mm3 Seg Neutrophils % (40.0-70.0) % Seg Neutrophils # (1.8-7.7) K/mm3 D-Dimer (0-234) ng/mlDDU Sodium (137-145) mmol/L Potassium (3.6-5.0) mmol/L Chloride (98-107) mmol/L Carbon Dioxide (22-30) mmol/L Anion Gap mmol/L BUN (7-17) mg/dL Creatinine (0.7-1.2) mg/dL Estimated GFR ml/min BUN/Creatinine Ratio % Glucose (65-100) mg/dL POC Glucose 87 (70-105) Calcium (8.4-10.2) mg/dL Troponin T < 0.010 (0.00-0.029) ng/mL - EKG Data -: EKG Interpreted by Nv EKG shows normal: sinus rhythm, ST-T waves (no stemi) Rate: normal - Radiology Data Radiology results: report reviewed CHEST 2 VIEWS INDICATION: sob, hx of pe. COMPARISON: 05/09/2019 FINDINGS: Support devices: None. Heart: Within normal limits. Lungs/pleura: No acute air space or interstitial disease. No pneumothorax. Additional findings: Right axillary lymph node dissection changes are again noted. IMPRESSION: No acute findings. NUCLEAR MEDICINE PERFUSION ONLY LUNG SCAN HISTORY: Shortness of breath, history of multiple pulmonary emboli TECHNIQUE: Multiple projections of the chest are obtained following 4.5 mCi of technetium 99m MAA. COMPARISON: Chest x-ray performed the same day. FINDINGS: The images demonstrate homogeneous distribution of the radiotracer throughout both lungs. No perfusion defect is identified to suggest pulmonary embolus. IMPRESSION: Very low probability for pulmonary embolus. CTA CHEST WITH CONTRAST INDICATION / CLINICAL INFORMATION: b/l arm swelling, sob, hx of protein c/s defiency. TECHNIQUE: Axial CT images were obtained through the chest after injection of 100 cc Omnipaque 350 IV contrast. 3 plane MIP and/or 3D reconstructions were produced. All CT scans at this location are performed using CT dose reduction for ALARA by means of automated exposure control. COMPARISON: 02/01/2018 FINDINGS: PULMONARY ARTERIES: No pulmonary emboli. THORACIC AORTA: No significant abnormality. HEART: No significant abnormality. CORONARY ARTERIES: No significant calcification. MEDIASTINUM / HIL A: No significant abnormality. PLEURA: No pleural effusion. No pneumothorax. LUNGS: No acute air space or interstitial disease. ADDITIONAL FINDINGS: None. UPPER ABDOMEN: No acute findings. SKELETAL STRUCTURES: No significant osseous abnormality. IMPRESSION: 1. No CT evidence for pulmonary embolism. 2. No acute findings. - Medical Decision Making Patient was concerned about a pulmonary embolism given chest pain or shortness of breath symptoms. Patient is compliant with her Lovenox 100 mg twice daily. Patient states she has had multiple blood clots. Most recent clot diagnosed in the right arm with associated swelling noted. Patient is first concerned that her current symptoms are secondary to pulmonary embolism. She had an low probability VQ scan but still expressed concern and therefore a CT angiogram was performed after patient had been given Benadryl 50 mg and Solu-Medrol 125. No signs of allergic reaction after return from CAT scan. Patient's O2 sat remained 100% on room air. She continues to have reproducible anterior chest wall pain although decreased after morphine. Patient states she does have a hiv cts specialist but plans to follow-up with a hiv cts specialist here [facility] with [facility]. Patient will be discharged home to continue her current Lovenox and she does not have a medical condition requiring admission at this t danay - Differential Diagnosis PE, CHF, chest wall pain Critical Care Time: No Critical care attestation.: If time is entered above; I have spent that time in minutes in the direct care of this critically ill patient, excluding procedure time. ED Disposition Clinical Impression: SOB (shortness of breath), Chronic pain, Chest wall pain, History of DVT (deep vein thrombosis), History of pulmonary embolism, Chronic anticoagulation, History of protein S deficiency Disposition: DC-01 TO HOME OR SELFCARE Is pt being admited?: No Does the pt Need Aspirin: No Condition: Stable Instructions: Chest Pain (ED) Additional Instructions: Continue current pain medication (morphine for disease at home). It is very important you follow-up with a hiv cts specialist. Return if symptoms worsen as indicated by your discharge instructions Referrals: TERRY VILLALOBOS DO [Staff Physician] - 3-5 Days (Hematology) TERRI OLIVAS MD [Staff Physician] - 3-5 Days (Hematology) PRIMARY MD MICHELLE [Primary Care Provider] - 3-5 Days Forms: Work/School Release Form(ED) Time of Disposition: 12:58
--- NOTE | 2019-08-25 10:52 | Nuclear Medicine Report ---
NUCLEAR MEDICINE PERFUSION ONLY LUNG SCAN HISTORY: Shortness of breath, history of multiple pulmonary emboli TECHNIQUE: Multiple projections of the chest are obtained following 4.5 mCi of technetium 99m MAA. COMPARISON: Chest x-ray performed the same day. FINDINGS: The images demonstrate homogeneous distribution of the radiotracer throughout both lungs. No perfusio n defect is identified to suggest pulmonary embolus. IMPRESSION: Very low probability for pulmonary embolus. Signer Name: Jose Martinez Jr, MD Signed: 08/25/2019 10:48 AM Workstation Name: [id number]
[2019-08-25] MEDS ORDERED: methylPREDNISolone Sod Succinate 125 MG/2 ML INJ IV ONE (11:29)
[2019-08-25 11:39] VITALS: BP 117/61
--- NOTE | 2019-08-25 12:18 | Cat Scan Report ---
CTA CHEST WITH CONTRAST INDICATION / CLINICAL INFORMATION: b/l arm swelling, sob, hx of protein c/s defiency. TECHNIQUE: Axial CT images were obtained through the chest after injection of 100 cc Omnipaque 350 IV contrast. 3 plane MIP and/or 3D reconstructions were produced. All CT scans at this location are performed usin g CT dose reduction for ANAHY by means of automated exposure control. COMPARISON: 02/01/2018 FINDINGS: PULMONARY ARTERIES: No pulmonary emboli. THORACIC AORTA: No significant abnormality. HEART: No significant abnormality. CORONARY ARTERIES: No significant calcification. MEDIASTINUM / CRISTY: No significant abnormality. PLEURA: No pleural effusion. No pneumothorax. LUNGS: No acute air space or interstitial disease. ADDITIONAL FINDINGS: None. UPPER ABDOMEN: No acute findings. SKELETAL STRUCTURES: No significant osseous abnormality. IMPRESSION: 1. No CT evidence for pulmonary embolism. 2. No acute findings. Signer Name: Shaggy Wiggins MD Signed: 08/25/2019 12:13 PM Workstation Name: [id number]
== END 2019-08-25 13:19 | disposition home or self-care (01) ==
LOC: ED 04:47
DX: R06.02 Shortness of breath (principal); R07.89 Other chest pain; D68.318 Other hemorrhagic disorder due to intrinsic circulating anticoagulants, antibodies, or inhibitors; D68.59 Other primary thrombophilia; I25.2 Old myocardial infarction; I10 Essential (primary) hypertension; Z86.711 Personal history of pulmonary embolism; Z86.718 Personal history of other venous thrombosis and embolism; Z98.890 Other specified postprocedural states; Z90.710 Acquired absence of both cervix and uterus; Z98.51 Tubal ligation status; Z79.899 Other long term (current) drug therapy; Z88.8 Allergy status to other drugs, medicaments and biological substances; Z86.73 Personal history of transient ischemic attack (TIA), and cerebral infarction without residual deficits
CPT/HCPCS: 36415; 71046; 71275; 78580; 80048; 82962; 84484; 85025; 85379; 93005; 96374; 96375; 96376; 99285; A9540; J1200; J2270; J2405; J2930; Q9967